=== PATIENT | female | born 1945 | race Caucasian/White ===

== ENCOUNTER → 2016-10-25 | Outpatient (CLI) | payer MEDICARE ==
[~2016-10-25] MED LIST: DOBUTamine DRIP for NUC MED 500 MG in DEXTROSE/WATER 1 250ML.BAG IV ONE
== END | disposition home or self-care (01) ==
LOC: RADNMMAIN 09:45
PROVIDERS: ATTEND Internal Medicine Geriatric Medicine
DX: Z53.9 Procedure and treatment not carried out, unspecified reason (principal)

== ENCOUNTER → 2020-08-09 | Outpatient (CLI) | payer MEDICARE ==
[2020-08-09 10:59] LABS: Basophils # (A) 0.1 k/uL (0-0.2); Basophils % (A) 1 %; Eosinophils # (A) 0.1 k/uL (0-0.7); Eosinophils % (A) 1 %; HCT 40.6 % (34.0-46.0); HGB 13.7 gm/dL (11.4-16.0); Lymphocytes # (A) 0.9 k/uL (1.0-4.8); Lymphocytes % (A) 11 %; MCH 31.1 pg (25.0-35.0); MCHC 33.7 g/dL (31.0-37.0); MCV 92.2 fL (80.0-100.0); Monocytes # (A) 0.6 k/uL (0-1.0); Monocytes % (A) 7 %; Neutrophils # (A) 6.2 k/uL (1.3-7.7); Neutrophils % (A) 77 %; Platelet Count 314 k/uL (150-450); RDW 13.3 % (11.5-15.5); WBC 8.1 k/uL (3.8-10.6)
[2020-08-09 11:09] LABS: African American GFR (CKD) >90 (>60 ml/min/1.73 sqM); Anion Gap 7 mmol/L; Blood Urea Nitrogen 19 mg/dL (7-17); Carbon Dioxide 26 mmol/L (22-30); Chloride 103 mmol/L (98-107); Glucose 130 mg/dL (74-99); Non-African American GFR(CKD) 84 (>60 ml/min/1.73 sqM); Potassium 4.4 mmol/L (3.5-5.1); Sodium 136 mmol/L (137-145)
[2020-08-09 12:12] LABS: Appearance,Urine Clear (Clear); Bilirubin,Urine Negative (Negative); Blood,Urine Negative (Negative); Color,Urine Yellow; Glucose,Urine (UA) Negative (Negative); Hyaline Casts,Urine 1 /lpf (0-2); Ketones,Urine Negative (Negative); Leukocyte Esterase,Urine Small (Negative); Nitrite,Urine Negative (Negative); PH, Urine 6.5 (5.0-8.0); Protein,Urine Negative (Negative); RBC,Urine <1 /hpf (0-5); Specific Gravity,Urine 1.011 (1.001-1.035); Squamous Epithelial Cell,Urine 1 /hpf (0-4); Urobilinogen,Urine <2.0 mg/dL (<2.0); WBC,Urine 2 /hpf (0-5)
== END | disposition home or self-care (01) ==
LOC: LABPAT 10:21
PROVIDERS: ATTEND Urology
DX: Z01.812 Encounter for preprocedural laboratory examination (principal); N81.9 Female genital prolapse, unspecified; N39.3 Stress incontinence (female) (male); N13.30 Unspecified hydronephrosis; N39.0 Urinary tract infection, site not specified
CPT/HCPCS: 36415; 80048; 81001; 85025; 87086

== ENCOUNTER 2020-08-17 06:17 | Day surgery (SDC) | payer MEDICARE ==
[2020-08-15 16:33] VITALS: BMI 25.4
--- NOTE | 2020-08-16 19:00 | P.HPIHPCON ---
History of Present Illness H&P Date: 08/16/20 Chief Complaint: Pelvic organ prolapse This is a 75 yo female with hx of stage IV cystocele/Rectocele and AME. She is symptomatic secondary to her prolapse. Option of pessary, vaginal repair and Robotic sacrocolpopexy were discussed with her in details. Discussed risk and be nefit of each approach. She agreed to proceed with robotic assisted laproscopic sacrocolpopexy, trans-obturator sling. Discussed with her for the sacrocolpopexy and trans-obturator sling we will be using mesh. Discussed risk of mesh erosion through the vagina, bladder and rectum. Discussed potential of needing additional operation in the future. Discussed risk of mesh erosion from the sling through the urethra, the bladder and the vagina. Discussed risk of recurrence prolapse, and stress urinary incontinence. Discussed the risk of urinary retention. She understood all risks and agreed to proceed. Consent for Procedure: I have explained the operation/procedure to the patient, including the risks, benefits, side effects, alternative therapies (including not receiving the proposed treatment or service), the likelihood of the patient achieving his/her goals, and potential recuperation problems for the procedure/sedation/analgesia, as well as any blood products, if indicated. I also explained to the patient the risks, benefits and side effects of the alternatives, as well as the risks related to not receiving the proposed procedure, care, treatment, or services. - Constitutional Constitutional: Denies chills, Denies fever - Cardiovascular Cardiovascular: Denies chest pain, Denies shortness of breath - Respiratory Respiratory: Denies cough, Denies 7 - Gastrointestinal Gastrointestinal: Denies abdominal pain, Denies diarrhea, Denies nausea, Denies vomiting - Genitourinary (Female) Genitourinary: Reports stress incontinence, Denies dysuria, Denies flank pain, Denies hematuria - Musculoskeletal Musculoskeletal: Denies myalgias Past Medical History Past Medical History: Hyperlipidemia, Hypertension, Osteoarthritis (OA) History of Any Multi-Drug Resistant Organisms: None Reported Past Surgical History: Adenoidectomy, Hysterectomy, Joint Replacement, Tonsillectomy Additional Past Surgical History / Comment(s): LT CARO. SX FOR ECTOPIC . COLONOSCOPY Past Anesthesia/Blood Transfusion Reactions: Postoperative Nausea & Vomiting (PONV) Smoking Status: Never smoker - Past Family History Mother Family Medical History: Cancer Medications and Allergies Home Medications Medication Instructions Recorded Confirmed Type Losartan Potassium 50 mg PO DAILY 08/15/20 08/15/20 History Metoprolol Tartrate [Lopressor] 25 mg PO BID 08/15/20 08/15/20 History amLODIPine [Norvasc] 10 mg PO DAILY 08/15/20 08/15/20 History Allergies Allergy/AdvReac Type Severity Reaction Status Date / Time adhesive tape Allergy Rash/Hives Verified 08/15/20 16:26 atorvastatin calcium Allergy Abdominal Verified 08/15/20 16:19 [From Lipitor] Pain Surgical - Exam - General well developed, well nourished, no distress, no pain - Eyes PERRL, normal ocular movement - ENT normal nares, normal mucosa - Respiratory normal expansion, normal respiratory effort - Abdomen Abdomen: soft, non tender - Psychiatric oriented to time, oriented to person, oriented to place Assessment and Plan Assessment: 75-year-old female with history of stage IV cystocele, rectocele, stress urinary incontinence. -Or for robotic sacralcolpopexy, trans-obturator sling
[~2020-08-17 06:17] MED LIST changes: +DEXAMETHASONE SOD PHOSPHATE 4 MG/ML 1 ML VIAL IV ONE; -DOBUTamine DRIP for NUC MED 500 MG in DEXTROSE/WATER 1 250ML.BAG IV ONE; +HYDROmorphone 0.5 MG/0.5 ML SYRINGE IVP PRN; +MIDAZOLAM 2 MG/2 ML VIAL IV PRN; +ONDANSETRON 4 MG/2 ML VIAL IVP ONE
[2020-08-17] MEDS: LACTATED RINGERS 1,000 ML IV SCH (06:58)
[2020-08-17] MEDS ORDERED: ePHEDrine SULFATE/0.9% NACL/PF 50 MG/5 ML SYRINGE IV ONE (07:31)
[2020-08-17] MEDS ORDERED: fentaNYL (PF) 50 MCG/ML 2 ML AMP ONE (07:31)
[2020-08-17] MEDS ORDERED: GLYCOPYRROLATE 0.2 MG/ML 2 ML VIAL ONE (07:31)
[2020-08-17] MEDS ORDERED: NEOSTIGMINE 1 MG/ML 10 ML VIAL ONE (07:31)
[2020-08-17] MEDS ORDERED: LIDOCAINE 1% INJ 10MG/ML (20 ML MDV) ONE (07:31)
[2020-08-17] MEDS ORDERED: PROPOFOL 10 MG/ML 20 ML VIAL IV ONE (07:31)
[2020-08-17] MEDS ORDERED: MIDAZOLAM 2 MG/2 ML VIAL ONE (07:31)
[2020-08-17] MEDS ORDERED: SUCCINYLCHOLINE CHLORIDE 100 MG/5 ML SYR IV ONE (07:31)
[2020-08-17] MEDS ORDERED: PHENYLEPHRINE-0.9% NACL SYG 1,000 MCG/10 ML SYRINGE ONE (07:31)
[2020-08-17] MEDS ORDERED: ROCURONIUM 10 MG/ML (5 ML VIAL) IV ONE (07:31)
[2020-08-17] MEDS ORDERED: BUPIVACAINE (PF) 0.5% 30 ML VIAL SQ ONE (07:36)
[2020-08-17] MEDS ORDERED: LIDOCAINE 1%-EPI 1:100,000 20 ML VIAL SQ ONE (07:36)
[2020-08-17] MEDS ORDERED: GENTAMICIN 80 MG in SODIUM CHLORIDE 0.9% 500 ML 500 ML IRRIGATION ONE (07:36)
[2020-08-17] MEDS ORDERED: traMADol 50 MG TAB PO PRN (07:47)
--- NOTE | 2020-08-17 10:07 | P.OP ---
Date of Procedure: 08/17/20 Preoperative Diagnosis: Stage IV cystocele/rectocele, stress urinary incontinence Postoperative Diagnosis: Same Procedure(s) Performed: lysis of adhesions Implants: none Anesthesia: CAMRYN Surgeon: Roland Aldana Package Sorter #1: Farzad Duran Estimated Blood Loss (ml): 25 Pathology: none sent Condition: stable Disposition: PACU Indications for Procedure: This is a 75 yo female with hx of stage IV cystocele/Rectocele and AME. She is symptomatic secondary to her prolapse. Option of pessary, vaginal repair and Robotic sacrocolpopexy were discussed with her in details. Discussed risk and benefit of each approach. She agreed to proceed with robotic assisted laproscopic sacrocolpopexy, trans-obturator sling. Discussed with her for the sacrocolpopexy and trans-obturator sling we will be using mesh. Discussed risk of mesh erosion through the vagina, bladder and rectum. Discussed potential of needing additional operation in the future. Discussed risk of mesh erosion from the sling through the urethra, the bladder and the vagina. Discussed risk of recurrence prolapse, and stress urinary incontinence. Discussed the risk of urinary retention. She understood all risks and agreed to proceed. Operative Findings: extensive adhesion, the left sigmoid was fixed to the left side wall, sigmoid could not be safely mobilized. Extensively dilated rectum that is tightly adherent to the vagina. extensive small bowel adhesion along the culde sac. Description of Procedure: She was taken to the OR and administered general anesthesia and placed in lithotomy position. She was prepped and draped in sterile fashion. A Lima catheter was placed. Pneumoperitoneum was obtained using a Veress needle, 8mm robotic trocar was placed supraumbillically. 2 additional 8 mm robotic trochars were placed on the left, an additional 8 mm robotic trocar was placed, 12 mm system port was placed in the right quadrant . The robot was docked. Patient had extensive adhesion in the pelvis. Lysis adhesions was performed sharply using monopolar scissors, of note patient had extensive adhesions, and no clear planes could be identified between the adhesions. Additionally her adhesions were very dense. more than 45 minutes was spent performing lysis of adhesions. At this time it was noted that the left sigmoid was fixed to the left side wall, sigmoid could not be safely mobilized to perform the surgery . Additionally Extensively dilated rectum that is tightly adherent to the vagina, and extensive small bowel adhesion along the culde sac. At this time it was felt that the surgery could not be performed safely, the prolapse could not be reduced and the sacral prominetory could not be identified without dissecting the bowel adhesions. I discussed these finding with patient and discussed that the surgery could not be performed safely and he was agreeable with aborting the surgery given the extensive adhesions. The bowel was reexamined at the end of the case and there was no evidence of bowel injury. All count was correct. the abdomen was desufflated and all ports were removed. All the incisions were closed with 4-0 Monocryl subcuticular sutures and the patient was sent to recovery in stable condition with the Lima catheter
[2020-08-17] MEDS: KETOROLAC 15 MG/ML 1 ML VIAL IVP SCH ×2 (10:25→17:29)
[2020-08-17] MEDS: DEXTROSE 5%-0.45% NACL 1,000 ML IV SCH ×2 (10:26→17:34)
[2020-08-17] MEDS: HEPARIN SODIUM,PORCINE/PF 5,000 UNIT/0.5 ML SYRINGE SQ SCH (17:30)
[2020-08-17] MEDS: METOPROLOL TARTRATE 25 MG TAB PO SCH (17:30)
[2020-08-17] MEDS: CEPHALEXIN 500 MG CAP PO SCH (17:30)
[2020-08-18] MEDS: CEPHALEXIN 500 MG CAP PO SCH ×2 (00:23→08:15)
[2020-08-18] MEDS: KETOROLAC 15 MG/ML 1 ML VIAL IVP SCH ×2 (00:23→05:59)
[2020-08-18] MEDS: HEPARIN SODIUM,PORCINE/PF 5,000 UNIT/0.5 ML SYRINGE SQ SCH ×2 (00:23→08:15)
[2020-08-18] MEDS: DEXTROSE 5%-0.45% NACL 1,000 ML IV SCH (00:23)
[2020-08-18] MEDS: LACTATED RINGERS 1,000 ML IV SCH (00:24)
[2020-08-18 02:37] VITALS: RESP 16
[2020-08-18] MEDS: METOPROLOL TARTRATE 25 MG TAB PO SCH (08:15)
[2020-08-18] MEDS ORDERED: amLODIPine 10 MG TAB PO SCH (09:00)
[2020-08-18 15:15] VITALS: BP 161/82; PULSE 62; TEMP 98.2
--- NOTE | 2020-08-18 18:10 | P.DS ---
Providers Attending physician: Roland Aldana MD Primary care physician: [facility] Course: 75-year-old female history of stage for prolapse. She underwent attempted robotic sacralcolpopexy on August 17, surgery could not be performed secondary to significant pelvic adhesions. Please see op note dated August 17 for surgery details. Patient was admitted to the hospital postoperatively, she did well in the postoperative period. She was discharged home on postop day #1, attempt discharge was tolerating a diet, ambulating, pain was well-controlled. ON discharge her incision were CDI, and her abdominal exam was benign Plan - Discharge Summary Discharge Rx Participant: Yes New Discharge Prescriptions: New Ibuprofen 600 mg PO Q8H PRN #30 tab PRN Reason: Pain No Action amLODIPine [Norvasc] 10 mg PO DAILY Metoprolol Tartrate [Lopressor] 25 mg PO BID Losartan Potassium 50 mg PO DAILY Cephalexin [Keflex] 500 mg PO Q8HR Discharge Medication List Losartan Potassium 50 mg PO DAILY 08/15/20 [History] Metoprolol Tartrate [Lopressor] 25 mg PO BID 08/15/20 [History] amLODIPine [Norvasc] 10 mg PO DAILY 08/15/20 [History] Cephalexin [Keflex] 500 mg PO Q8HR 08/17/20 [History] Ibuprofen 600 mg PO Q8H PRN #30 tab 08/18/20 [Rx] Patient Instructions/Handouts: Exploratory Laparotomy (DC) Activity/Diet/Wound Care/Special Instructions: No heavy lifting or straining for 4 weeks You may shower tomorrow but no baths Discharge Disposition: HOME SELF-CARE
== END 2020-08-18 16:34 | disposition home or self-care (01) ==
LOC: OR 06:17 → 4SSUR 09:22 → OR 08-18 16:34
PROVIDERS: ATTEND Urology
DX: N81.10 Cystocele, unspecified (principal); N81.6 Rectocele; N39.3 Stress incontinence (female) (male); K66.0 Peritoneal adhesions (postprocedural) (postinfection); I10 Essential (primary) hypertension; E78.5 Hyperlipidemia, unspecified; M19.90 Unspecified osteoarthritis, unspecified site; Z79.899 Other long term (current) drug therapy; Z88.8 Allergy status to other drugs, medicaments and biological substances; Z98.890 Other specified postprocedural states
CPT/HCPCS: 86900; 86901; 86850; 44180; J2250; J1580; J1100; J2710; J0690; J2405; J2001; J3010; J1885 ×2; J2370; J0330; J2704; J1644 ×2

== ENCOUNTER 2021-10-31 08:51 | Emergency (ER) | payer MEDICARE ==
[2021-10-31 09:01] VITALS: TEMP 97.9
--- NOTE | 2021-10-31 09:28 | ED ---
General Adult HPI - General Chief complaint: Urogenital Stated complaint: urogenital, dizziness Time Seen by Provider: 10/31/21 08:52 Source: patient, RN notes reviewed Mode of arrival: wheelchair Limitations: no limitations - History of Present Illness Initial comments: 76-year-old female with a history of urinary tract infections in the past who initially came in because of urgency frequency and painful urination also complains some dizziness and also later admitted to a cough with some minimal phlegm he was noted to be dyspneic on exertion transferring from a wheelchair to a ER stretcher. She's had chills and night sweats she states no nausea no vomiting she states she had a little bit of blood in her urine this morning and demonstrate frequency and urgency. No chest pain or palpitations no history of any lung issues she states. - Related Data Home Medications Medication Instructions Recorded Confirmed Metoprolol Tartrate [Lopressor] 25 mg PO BID 08/15/20 10/31/21 amLODIPine [Norvasc] 10 mg PO DAILY 08/15/20 10/31/21 Atorvastatin [Lipitor] 20 mg PO DAILY 10/31/21 10/31/21 Losartan Potassium 100 mg PO DAILY 10/31/21 10/31/21 Previous Rx's Medication Instructions Recorded Cephalexin [Keflex] 500 mg PO Q6HR 1 Days #40 cap 10/31/21 Allergies Allergy/AdvReac Type Severity Reaction Status Date / Time adhesive tape Allergy Rash/Hives Verified 10/31/21 10:32 Review of Systems ROS Statement: Those systems with pertinent positive or pertinent negative responses have been documented in the HPI. ROS Other: All systems not noted in ROS Statement are negative. Past Medical History Past Medical History: Hyperlipidemia, Hypertension History of Any Multi-Drug Resistant Organisms: None Reported Past Surgical History: Joint Replacement Additional Past Surgical History / Comment(s): Left hip surgery Past Psychological History: No Psychological Hx Reported Smoking Status: Never smoker Past Alcohol Use History: None Reported Past Drug Use History: None Reported General Exam - General Exam Comments Initial Comments: This is a well-developed well-nourished awake alert oriented 4 female Limitations: no limitations General appearance: alert, anxious Head exam: Present: atraumatic, normocephalic, normal inspection Eye exam: Present: normal appearance, PERRL, EOMI. Absent: scleral icterus, conjunctival injection, periorbital swelling ENT exam: Present: normal exam, mucous membranes moist Neck exam: Present: normal inspection, full ROM, other (Stridor JVD or bruits). Absent: tenderness, meningismus, lymphadenopathy Respiratory exam: Present: normal lung sounds bilaterally. Absent: respiratory distress, wheezes, rales, rhonchi, stridor Cardiovascular Exam: Present: regular rate, normal rhythm, normal heart sounds. Absent: systolic murmur, diastolic murmur, rubs, gallop, clicks GI/Abdominal exam: Present: soft, tenderness (Mild suprapubic tenderness palpation no guarding rebound masses or bruits), normal bowel sounds. Absent: distended, guarding, rebound, rigid Rectal exam: Present: deferred Extremities exam: Present: normal inspection, full ROM, normal capillary refill. Absent: tenderness, pedal edema, joint swelling, calf tenderness Back exam: Present: normal inspection, full ROM. Absent: tenderness Neurological exam: Present: alert, oriented X3, CN II-XII intact Psychiatric exam: Present: normal affect, normal mood Skin exam: Present: warm, dry, intact, normal color. Absent: rash Course Vital Signs 10/31/21 08:57 Temperature 97.9 F Pulse Rate 61 Respiratory 18 Rate Blood Pressure 172/75 O2 Sat by Pulse 100 Oximetry Medical Decision Making - Medical Decision Making I did offer admission as the patient she does not want to be admitted this time she does know she has urinary tract infection she also she has COVID-19. Patient will be discharged home. Return parameters were discussed. She will follow-up with her doctor - Lab Data Result diagrams: 10/31/21 09:56 10/31/21 09:56 Lab Results 10/31/21 10/31/21 10/31/21 Range/Units 09:56 09:56 09:56 WBC 3.0 L (3.8-10.6) k/uL RBC 4.30 (3.80-5.40) m/uL Hgb 13.0 (11.4-16.0) gm/dL Hct 39.8 (34.0-46.0) % MCV 92.7 (80.0-100.0) fL MCH 30.2 (25.0-35.0) pg MCHC 32.5 (31.0-37.0) g/dL RDW 12.8 (11.5-15.5) % Plt Count 221 (150-450) k/uL MPV 8.6 Neutrophils % 61 % Lymphocytes % 19 % Monocytes % 16 % Eosinophils % 0 % Basophils % 1 % Neutrophils # 1.8 (1.3-7.7) k/uL Lymphocytes # 0.6 L (1.0-4.8) k/uL Monocytes # 0.5 (0-1.0) k/uL Eosinophils # 0.0 (0-0.7) k/uL Basophils # 0.0 (0-0.2) k/uL PT 9.9 (9.0-12.0) sec INR 0.9 (<1.2) APTT 30.0 (22.0-30.0) sec D-Dimer 0.91 H (<0.60) mg/L FEU Sodium 134 L (137-145) mmol/L Potassium 4.1 (3.5-5.1) mmol/L Chloride 102 (98-107) mmol/L Carbon Dioxide 21 L (22-30) mmol/L Anion Gap 11 mmol/L BUN 10 (7-17) mg/dL Creatinine 0.60 (0.52-1.04) mg/dL Est GFR (CKD-EPI)AfAm >90 (>60 ml/min/1.73 sqM) Est GFR (CKD-EPI)NonAf 90 (>60 ml/min/1.73 sqM) Glucose 114 H (74-99) mg/dL Lactic Ac Sepsis Rflx Plasma Lactic Acid Jeff (0.7-2.0) mmol/L Calcium 9.4 (8.4-10.2) mg/dL Magnesium 2.0 (1.6-2.3) mg/dL Total Bilirubin 0.5 (0.2-1.3) mg/dL AST 42 H (14-36) U/L ALT 21 (4-34) U/L Alkaline Phosphatase 121 (38-126) U/L Troponin I (0.000-0.034) ng/mL NT-Pro-B Natriuret Pep pg/mL Total Protein 7.2 (6.3-8.2) g/dL Albumin 4.3 (3.5-5.0) g/dL Urine Color Urine Appearance (Clear) Urine pH (5.0-8.0) Ur Specific Murray (1.001-1.035) Urine Protein (Negative) Urine Glucose (UA) (Negative) Urine Ketones (Negative) Urine Blood (Negative) Urine Nitrite (Negative) Urine Bilirubin (Negative) Urine Urobilinogen (<2.0) mg/dL Ur Leukocyte Esterase (Negative) Urine RBC (0-5) /hpf Urine WBC (0-5) /hpf Ur Squamous Epith Cells (0-4) /hpf Coronavirus (PCR) (Not Detectd) Influenza Type A RNA (Not Detectd) Influenza Type B (PCR) (Not Detectd) 10/31/21 10/31/21 10/31/21 Range/Units 09:56 09:56 09:56 WBC (3.8-10.6) k/uL RBC (3.80-5.40) m/uL Hgb (11.4-16.0) gm/dL Hct (34.0-46.0) % MCV (80.0-100.0) fL MCH (25.0-35.0) pg MCHC (31.0-37.0) g/dL RDW (11.5-15.5) % Plt Count (150-450) k/uL MPV Neutrophils % % Lymphocytes % % Monocytes % % Eosinophils % % Basophils % % Neutrophils # (1.3-7.7) k/uL Lymphocytes # (1.0-4.8) k/uL Monocytes # (0-1.0) k/uL Eosinophils # (0-0.7) k/uL Basophils # (0-0.2) k/uL PT (9.0-12.0) sec INR (<1.2) APTT (22.0-30.0) sec D-Dimer (<0.60) mg/L FEU Sodium (137-145) mmol/L Potassium (3.5-5.1) mmol/L Chloride (98-107) mmol/L Carbon Dioxide (22-30) mmol/L Anion Gap mmol/L BUN (7-17) mg/dL Creatinine (0.52-1.04) mg/dL Est GFR (CKD-EPI)AfAm (>60 ml/min/1.73 sqM) Est GFR (CKD-EPI)NonAf (>60 ml/min/1.73 sqM) Glucose (74-99) mg/dL Lactic Ac Sepsis Rflx Plasma Lactic Acid Jeff 2.1 H* (0.7-2.0) mmol/L Calcium (8.4-10.2) mg/dL Magnesium (1.6-2.3) mg/dL Total Bilirubin (0.2-1.3) mg/dL AST (14-36) U/L ALT (4-34) U/L Alkaline Phosphatase (38-126) U/L Troponin I <0.012 (0.000-0.034) ng/mL NT-Pro-B Natriuret Pep 289 pg/mL Total Protein (6.3-8.2) g/dL Albumin (3.5-5.0) g/dL Urine Color Urine Appearance (Clear) Urine pH (5.0-8.0) Ur Specific Murray (1.001-1.035) Urine Protein (Negative) Urine Glucose (UA) (Negative) Urine Ketones (Negative) Urine Blood (Negative) Urine Nitrite (Negative) Urine Bilirubin (Negative) Urine Urobilinogen (<2.0) mg/dL Ur Leukocyte Esterase (Negative) Urine RBC (0-5) /hpf Urine WBC (0-5) /hpf Ur Squamous Epith Cells (0-4) /hpf Coronavirus (PCR) (Not Detectd) Influenza Type A RNA (Not Detectd) Influenza Type B (PCR) (Not Detectd) 10/31/21 10/31/21 10/31/21 Range/Units 09:56 09:56 10:45 WBC (3.8-10.6) k/uL RBC (3.80-5.40) m/uL Hgb (11.4-16.0) gm/dL Hct (34.0-46.0) % MCV (80.0-100.0) fL MCH (25.0-35.0) pg MCHC (31.0-37.0) g/dL RDW (11.5-15.5) % Plt Count (150-450) k/uL MPV Neutrophils % % Lymphocytes % % Monocytes % % Eosinophils % % Basophils % % Neutrophils # (1.3-7.7) k/uL Lymphocytes # (1.0-4.8) k/uL Monocytes # (0-1.0) k/uL Eosinophils # (0-0.7) k/uL Basophils # (0-0.2) k/uL PT (9.0-12.0) sec INR (<1.2) APTT (22.0-30.0) sec D-Dimer (<0.60) mg/L FEU Sodium (137-145) mmol/L Potassium (3.5-5.1) mmol/L Chloride (98-107) mmol/L Carbon Dioxide (22-30) mmol/L Anion Gap mmol/L BUN (7-17) mg/dL Creatinine (0.52-1.04) mg/dL Est GFR (CKD-EPI)AfAm (>60 ml/min/1.73 sqM) Est GFR (CKD-EPI)NonAf (>60 ml/min/1.73 sqM) Glucose (74-99) mg/dL Lactic Ac Sepsis Rflx Y Plasma Lactic Acid Jeff (0.7-2.0) mmol/L Calcium (8.4-10.2) mg/dL Magnesium (1.6-2.3) mg/dL Total Bilirubin (0.2-1.3) mg/dL AST (14-36) U/L ALT (4-34) U/L Alkaline Phosphatase (38-126) U/L Troponin I (0.000-0.034) ng/mL NT-Pro-B Natriuret Pep pg/mL Total Protein (6.3-8.2) g/dL Albumin (3.5-5.0) g/dL Urine Color Urine Appearance (Clear) Urine pH (5.0-8.0) Ur Specific Murray (1.001-1.035) Urine Protein (Negative) Urine Glucose (UA) (Negative) Urine Ketones (Negative) Urine Blood (Negative) Urine Nitrite (Negative) Urine Bilirubin (Negative) Urine Urobilinogen (<2.0) mg/dL Ur Leukocyte Esterase (Negative) Urine RBC (0-5) /hpf Urine WBC (0-5) /hpf Ur Squamous Epith Cells (0-4) /hpf Coronavirus (PCR) Detected A (Not Detectd) Influenza Type A RNA Not Detected (Not Detectd) Influenza Type B (PCR) Not Detected (Not Detectd) 10/31/21 Range/Units 11:07 WBC (3.8-10.6) k/uL RBC (3.80-5.40) m/uL Hgb (11.4-16.0) gm/dL Hct (34.0-46.0) % MCV (80.0-100.0) fL MCH (25.0-35.0) pg MCHC (31.0-37.0) g/dL RDW (11.5-15.5) % Plt Count (150-450) k/uL MPV Neutrophils % % Lymphocytes % % Monocytes % % Eosinophils % % Basophils % % Neutrophils # (1.3-7.7) k/uL Lymphocytes # (1.0-4.8) k/uL Monocytes # (0-1.0) k/uL Eosinophils # (0-0.7) k/uL Basophils # (0-0.2) k/uL PT (9.0-12.0) sec INR (<1.2) APTT (22.0-30.0) sec D-Dimer (<0.60) mg/L FEU Sodium (137-145) mmol/L Potassium (3.5-5.1) mmol/L Chloride (98-107) mmol/L Carbon Dioxide (22-30) mmol/L Anion Gap mmol/L BUN (7-17) mg/dL Creatinine (0.52-1.04) mg/dL Est GFR (CKD-EPI)AfAm (>60 ml/min/1.73 sqM) Est GFR (CKD-EPI)NonAf (>60 ml/min/1.73 sqM) Glucose (74-99) mg/dL Lactic Ac Sepsis Rflx Plasma Lactic Acid Jeff (0.7-2.0) mmol/L Calcium (8.4-10.2) mg/dL Magnesium (1.6-2.3) mg/dL Total Bilirubin (0.2-1.3) mg/dL AST (14-36) U/L ALT (4-34) U/L Alkaline Phosphatase (38-126) U/L Troponin I (0.000-0.034) ng/mL NT-Pro-B Natriuret Pep pg/mL Total Protein (6.3-8.2) g/dL Albumin (3.5-5.0) g/dL Urine Color Red Urine Appearance Turbid H (Clear) Urine pH 8.0 (5.0-8.0) Ur Specific Murray 1.017 (1.001-1.035) Urine Protein 2+ H (Negative) Urine Glucose (UA) Negative (Negative) Urine Ketones Negative (Negative) Urine Blood Large H (Negative) Urine Nitrite Negative (Negative) Urine Bilirubin Negative (Negative) Urine Urobilinogen <2.0 (<2.0) mg/dL Ur Leukocyte Esterase Large H (Negative) Urine RBC >182 H (0-5) /hpf Urine WBC 64 H (0-5) /hpf Ur Squamous Epith Cells 3 (0-4) /hpf Coronavirus (PCR) (Not Detectd) Influenza Type A RNA (Not Detectd) Influenza Type B (PCR) (Not Detectd) - EKG Data -: EKG Interpreted by Me EKG shows normal: sinus rhythm EKG Comments: Sinus rhythm a 62 MO interval 142 QRS duration 81 QT/QTC 413/419 some artifact present - Radiology Data Radiology results: report reviewed ((Reviewed no evidence of PE chronic hydronephrosis question renal lesion), image reviewed Disposition Clinical Impression: Urinary tract infection, Hydronephrosis, Exertional dyspnea, COVID-19, Dehydration Disposition: HOME SELF-CARE Condition: Stable Instructions (If sedation given, give patient instructions): Coronavirus Disease 2019 (COVID-19), How to Recover from COVID-19 at Home (ED), Safely Care for Someone Who Has COVID-19 (ED), Social Distancing Guidelines for COVID-19 (ED), Dehydration (ED), Dyspnea (ED) Additional Instructions: Paxlovid as directed Prescriptions: Cephalexin [Keflex] 500 mg PO Q6HR 1 Days #40 cap Is patient prescribed a controlled substance at d/c from ED?: No Referrals: Atif Mike MD [Primary Care Provider] - 1-2 days Decision Date: 10/31/21 Decision Time: 14:00
--- NOTE | 2021-10-31 10:15 | XR ---
EXAMINATION TYPE: XR chest 2V DATE OF EXAM: 10/31/2021 COMPARISON: 08/21/2014 HISTORY: 76 year-old female shortness of breath, difficulty breathing TECHNIQUE: AP and lateral views FINDINGS: Heart normal size. Atherosclerotic arch calcifications. Some patchy retrocardiac opacity noted. Pulmo nary vasculature within normal limits. Increased retrosternal clear space could reflect hyperinflatio n from COPD. IMPRESSION: Retrocardiac density suspected to reflect an enlarging moderate-sized hiatal hernia. Otherwise, no de finite acute process.
--- NOTE | 2021-10-31 10:17 | XR ---
EXAMINATION TYPE: XR KUB DATE OF EXAM: 10/31/2021 10:03 AM CLINICAL HISTORY: Flank pain. TECHNIQUE: Single Upright KUB image of the abdomen is obtained. COMPARISON: None. FINDINGS: Scattered gas is seen in non-distended small bowel loops. Gas and fecal material is seen in non-distended colon and rectum. Mild to moderate fecal prominence in the right and central pelvis. P elvic phleboliths inferior to pubic symphysis noted. There is marked scoliosis in the thoracolumbar s pine. Chronic deformity and dislocation right hip is present. Metallic prosthesis left hip is partial ly imaged. No free air. Some overlying vascular calcification is seen. IMPRESSION: Overall nonobstructive bowel gas pattern. Correlate for mild to moderate colonic fecal stasis.
[2021-10-31 10:22] LABS: Basophils % (A) 1 %; Eosinophils % (A) 0 %; HCT 39.8 % (34.0-46.0); Lymphocytes # (A) 0.6 k/uL (1.0-4.8); Lymphocytes % (A) 19 %; MCH 30.2 pg (25.0-35.0); MCHC 32.5 g/dL (31.0-37.0); MCV 92.7 fL (80.0-100.0); Mean Platelet Volume 8.6; Monocytes # (A) 0.5 k/uL (0-1.0); Monocytes % (A) 16 %; Neutrophils # (A) 1.8 k/uL (1.3-7.7); Neutrophils % (A) 61 %; Platelet Count 221 k/uL (150-450); RDW 12.8 % (11.5-15.5)
[2021-10-31 10:39] LABS: ALT 21 U/L (4-34); AST 42 U/L (14-36); African American GFR (CKD) >90 (>60 ml/min/1.73 sqM); Albumin 4.3 g/dL (3.5-5.0); Alkaline Phosphatase 121 U/L (38-126); Anion Gap 11 mmol/L; Blood Urea Nitrogen 10 mg/dL (7-17); Calcium 9.4 mg/dL (8.4-10.2); Carbon Dioxide 21 mmol/L (22-30); Chloride 102 mmol/L (98-107); Glucose 114 mg/dL (74-99); Non-African American GFR(CKD) 90 (>60 ml/min/1.73 sqM); Potassium 4.1 mmol/L (3.5-5.1); Sodium 134 mmol/L (137-145); Total Bilirubin 0.5 mg/dL (0.2-1.3); Total Protein 7.2 g/dL (6.3-8.2)
[2021-10-31 10:42] LABS: INR 0.9 (<1.2); Prothrombin Time 9.9 sec (9.0-12.0)
[2021-10-31 11:29] LABS: Appearance,Urine Turbid (Clear); Bilirubin,Urine Negative (Negative); Blood,Urine Large (Negative); Color,Urine Red; Glucose,Urine (UA) Negative (Negative); Ketones,Urine Negative (Negative); Leukocyte Esterase,Urine Large (Negative); Nitrite,Urine Negative (Negative); Protein,Urine 2+ (Negative); RBC,Urine >182 /hpf (0-5); Specific Gravity,Urine 1.017 (1.001-1.035); Squamous Epithelial Cell,Urine 3 /hpf (0-4); Urobilinogen,Urine <2.0 mg/dL (<2.0); WBC,Urine 64 /hpf (0-5)
--- NOTE | 2021-10-31 12:07 | CT ---
EXAMINATION TYPE: CT angio chest CT DLP: 231.8 mGycm, Automated exposure control for dose reduction was used. DATE OF EXAM: 10/31/2021 11:50 AM COMPARISON: CTA chest 08/21/2014, chest radiograph 10/31/2021. CLINICAL INDICATION:Female, 76 years old with history of PE suspected; SOB TECHNIQUE/CONTRAST: CTA scan of the thorax is performed with IV Contrast, patient injected with 80cc mL of Isovue 370, pu lmonary embolism protocol. MIP images are created and reviewed. FINDINGS: Pulmonary Artery: There is no evidence for a filling defect within the pulmonary vasculature to sugge st acute pulmonary embolism. The pulmonary artery is of normal size. Lungs/Pleura: No pneumothorax or pleural effusion. Bilateral lower lobe subtle scattered groundglass opacities. Calcified granuloma redemonstrated in the right apex. No new or enlarging pulmonary nodule s. Airway: Large airways are patent. Heart: Heart is prominent for size. No pericardial effusion. Coronary artery calcifications. Vasculature: No evidence of aortic aneurysm. Atherosclerotic calcification of the aorta and its branc hes. Mediastinum: No gross evidence of adenopathy. Musculoskeletal: No acute osseous abnormalities. Scoliosis. Arthropathy of both shoulders. Stable dif fuse heterogenous appearance of the vertebral bodies. Multilevel degenerative changes of the visualiz ed spine with multilevel fusion. Soft Tissues: Unremarkable. Lower neck: No significant findings. Upper Abdomen: Partially visualized moderate to severe bilateral hydronephrosis. 2.1 cm hyperattenuat ing focus within the left renal pelvis (series 401, image 140). Moderate-sized lateral hernia. IMPRESSION: 1. No evidence of pulmonary embolism. 2. Bilateral lower lobe scattered subtle groundglass opacities. This may represent atelectasis versus an infectious/inflammatory process in the appropriate clinical setting. 3. Partially visualized moderate to severe bilateral hydronephrosis redemonstrated. 4.Nonspecific hyperattenuating focus within the left renal pelvis which may represent blood products versus neoplasm. Consider further evaluation with ultrasound.
[2021-10-31] MEDS ORDERED: cefTRIAXone IN SWFI 1,000 MG/10 ML SYRINGE IVP STA (13:39)
[2021-10-31 15:45] VITALS: BP 113/68; PULSE 68; RESP 16
== END 2021-10-31 15:45 | disposition home or self-care (01) ==
LOC: EC 08:51
DX: U07.1 COVID-19 (principal); N39.0 Urinary tract infection, site not specified; N13.30 Unspecified hydronephrosis; E78.5 Hyperlipidemia, unspecified; I10 Essential (primary) hypertension; Z91.048 Other nonmedicinal substance allergy status
CPT/HCPCS: 36415; 93005; 85379; 83880; 80053; 83605; 83735; 84484; 85025; 85610; 85730; 81001; 87040; 87086; 87502; 87635; 71046; 74018; 71275; 99284; 96374; J0696; Q9967

== ENCOUNTER 2022-11-30 10:11 | Inpatient (IN) | payer MEDICARE ==
[2022-11-30] MEDS ORDERED: SODIUM CHLORIDE 0.9% 500 ML 500 ML IV STA (11:12)
[2022-11-30] MEDS ORDERED: fentaNYL (PF) 50 MCG/ML 2 ML AMP IVP STA (11:12)
--- NOTE | 2022-11-30 11:15 | ED ---
General Adult HPI - General Source: patient, RN notes reviewed, old records reviewed Mode of arrival: ambulatory Limitations: no limitations - History of Present Illness -: days(s) (1) Location: genitals (rectal) Severity scale (1-10): 10 Quality: constant Consistency: constant Improves with: none Associated Symptoms: other (rectal bleeding) Treatments Prior to Arrival: none <Manas Welch - Last Filed: 11/30/22 16:17> <Lizzeth Jeronimo - Last Filed: 12/01/22 15:09> - General Chief complaint: GI Bleed Stated complaint: GI bleed Time Seen by Provider: 11/30/22 10:33 - History of Present Illness Initial comments: Patient presents to the emergency room with complaints of rectal bleeding since yesterday with hemorrhoids. States that she has not been able to pass gas. History of hypertension and hyperlipidemia. (Manas Welch) - Related Data Home Medications Medication Instructions Recorded Confirmed Metoprolol Tartrate [Lopressor] 25 mg PO BID 08/15/20 11/30/22 amLODIPine [Norvasc] 5 mg PO HS 08/15/20 11/30/22 Losartan Potassium 100 mg PO DAILY 10/31/21 11/30/22 Ascorbic Acid [Vitamin C] 500 mg PO DAILY 11/30/22 11/30/22 Cholecalciferol [Vitamin D3 (25 25 mcg PO DAILY 11/30/22 11/30/22 Mcg = 1000 Iu)] Garlic 1,000 mg PO DAILY 11/30/22 11/30/22 Glucosamine/Chondr Mack A Sod [Osteo 1 tab PO DAILY 11/30/22 11/30/22 Bi-Flex Caplet] Moxifloxacin HCl [Moxifloxacin 1 drop BOTH EYES QID 11/30/22 11/30/22 0.5%] Pravastatin Sodium [Pravachol] 40 mg PO DAILY 11/30/22 11/30/22 Vitamin A 2,400 mcg PO DAILY 11/30/22 11/30/22 Vitamin B Complex 1 cap PO DAILY 11/30/22 11/30/22 Vitamin E (Dl,Tocopheryl Acet) 400 unit PO DAILY 11/30/22 11/30/22 [Vitamin E (400 Iu = 180 mg)] prednisoLONE ACETATE 1% OPHTH 1 drops BOTH EYES QID 11/30/22 11/30/22 [Pred Forte 1%] Allergies Allergy/AdvReac Type Severity Reaction Status Date / Time adhesive tape Allergy Rash/Hives Verified 11/30/22 12:43 latex Allergy Rash/Hives Verified 11/30/22 14:01 Review of Systems ROS Other: All systems not noted in ROS Statement are negative. <Manas Welch - Last Filed: 11/30/22 16:17> ROS Other: All systems not noted in ROS Statement are negative. <Lizzeth Jeronimo - Last Filed: 12/01/22 15:09> ROS Statement: Those systems with pertinent positive or pertinent negative responses have been documented in the HPI. 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 History of Any Multi-Drug Resistant Organisms: None Reported Past Surgical History: Joint Replacement Additional Past Surgical History / Comment(s): Left hip surgery Past Anesthesia/Blood Transfusion Reactions: No Reported Reaction Past Psychological History: No Psychological Hx Reported Smoking Status: Never smoker Past Alcohol Use History: None Reported Past Drug Use History: None Reported - Past Family History Mother Family Medical History: Cancer Sister(s) Family Medical History: Cancer <Manas Welch - Last Filed: 11/30/22 16:17> General Exam Limitations: no limitations General appearance: alert Head exam: Present: atraumatic Eye exam: Present: other (cataract surgery this week) Neck exam: Present: full ROM. Absent: tenderness, meningismus Respiratory exam: Absent: respiratory distress, accessory muscle use Cardiovascular Exam: Present: regular rate GI/Abdominal exam: Present: soft. Absent: distended, tenderness Rectal exam: Present: other (rectal prolapse, no active bleeding) External exam: Present: other (bladder prolapse, reducible however promptly recurs) Extremities exam: Present: normal capillary refill. Absent: pedal edema Back exam: Absent: tenderness, CVA tenderness (R), CVA tenderness (L), paraspinal tenderness, vertebral tenderness, rash noted Neurological exam: Present: alert, oriented X3 Psychiatric exam: Present: normal affect, normal mood Skin exam: Present: warm, normal color. Absent: cyanosis, diaphoretic, petechiae, pallor <Manas Welch - Last Filed: 11/30/22 16:17> Course - Reevaluation(s) Time: 12:02 Time: 12:06 <Manas Welch - Last Filed: 11/30/22 16:17> Vital Signs 11/30/22 11/30/22 10:13 13:00 Temperature 98.0 F Pulse Rate 68 78 Respiratory 18 18 Rate Blood Pressure 202/92 194/78 O2 Sat by Pulse 96 95 Oximetry - Reevaluation(s) Reevaluation #1: 11/30/22 12:02 Attempted manual reduction of prolapsed bladder and prolapsed rectum. Bladder is able to be reduced however unable to reduce rectal prolapse. Case discussed with Dr. Jeronimo, Surgery contacted. (Manas Welch) Reevaluation #2: 11/30/22 12:06 Dr Kerr notified coming down to see pt. (Manas Welch) Medical Decision Making - Lab Data Result diagrams: 11/30/22 11:21 11/30/22 11:21 <Manas Welch - Last Filed: 11/30/22 16:17> - Lab Data Result diagrams: 12/01/22 05:43 12/01/22 05:43 <Lizzeth Jeronimo - Last Filed: 12/01/22 15:09> - Medical Decision Making Was pt. sent in by a medical professional or institution (, PA, STEREOPTICIAN, urgent care, hospital, or prison...) When possible be specific @ -[No] Did you speak to anyone other than the patient for history (EMS, parent, family, police, friend...)? What history was obtained from this source @ -[No] Did you review nursing and triage notes (agree or disagree)? Why? @ -[I reviewed and agree with nursing and triage notes] Were old charts reviewed (outside hosp., previous admission, EMS record, old EKG, old radiological studies, urgent care reports/EKG's, prison records)? Report findings @ -[No old charts were reviewed] Differential Diagnosis (chest pain, altered mental status, abdominal pain women, abdominal pain men, vaginal bleeding, weakness, fever, dyspnea, syncope, headache, dizziness, GI bleed, back pain, seizure, CVA, palpatations, mental health, musculoskeletal)? @ -Rectal prolapse, bladder prolapse, hemorrhoids, strangulated bowel EKG interpreted by me (3pts min.). @ -n/a X-rays interpreted by me (1pt min.). @ -[None done] CT interpreted by me (1pt min.). @ -[None done] U/S interpreted by me (1pt. min.). @ -[None done] What testing was considered but not performed or refused? (CT, X-rays, U/S, labs)? Why? @ -[None] What meds were considered but not given or refused? Why? @ -[None] Did you discuss the management of the patient with other professionals (professionals i.e. DrAdriane, PA, STEREOPTICIAN, lab, RT, psych nurse, social work job titles, mix technician, teacher, security flex utility officer, case management coordinator)? Give summary @ -Dr Kerr surgery at bedside, to go to OR Was smoking cessation discussed for >3mins.? @ -[No] Was critical care preformed (if so, how long)? @ -[No] Were there social determinants of health that impacted care today? How? (Homelessness, low income, unemployed, alcoholism, drug addiction, transportation, low edu. Level, literacy, decrease access to med. care, fdc, rehab)? @ -[No] Was there de-escalation of care discussed even if they declined (Discuss DNR or withdrawal of care, Hospice)? DNR status @ -[No] What co-morbidities impacted this encounter? (DM, HTN, Smoking, COPD, CAD, Cancer, CVA, ARF, Chemo, Hep., AIDS, mental health diagnosis, sleep apnea, morbid obesity)? @ -Hypertension, hyperlipidemia, bladder prolapse, rectal prolapse, diverticulitis Was patient admitted / discharged? Hospital course, mention meds given and route, prescriptions, significant lab abnormalities, going to OR and other pertinent info. @ -Admitted Patient presents to the emergency room with complaints of rectal bleeding since yesterday with hemorrhoids. States that she has not been able to pass gas. History of hypertension and hyperlipidemia. Also admits to history of bladder prolapse over [address] Aldana stated she is not a candidate for surgery due to history of diverticulitis. On further questioning patient states that her rectum has been prolapsed since yesterday morning, she does have a history of a smaller rectal prolapses for greater than 8 years. Bladder is able to be reduced however promptly recurs. Multiple attempts at manual reduction including the use of granulated sugar and unsuccessful. Dr. Kerr down to see patient states will take to surgery for colostomy, prolapse is not reducible. Patient and are agreeable to surgery. Patient's pain is controlled. Labs show slight leukocytosis with a left shift. Lactic acid is negative. Antibiotics were started and blood cultures were sent. Case discussed with Dr. Jeronimo. Undiagnosed new problem with uncertain prognosis? @ -[No] Drug Therapy requiring intensive monitoring for toxicity (Heparin, Nitro, Insulin, Cardizem)? @ -[No] Were any procedures done? @ -[No] Diagnosis/symptom? @ -Rectal prolapse, bladder prolapse Acute, or Chronic, or Acute on Chronic? @ -Acute Uncomplicated (without systemic symptoms) or Complicated (systemic symptoms)? @ -Complicated Side effects of treatment? @ -[No] Exacerbation, Progression, or Severe Exacerbation? @ -[No] Poses a threat to life or bodily function? How? (Chest pain, USA, DC, pneumonia, PE, COPD, DKA, ARF, appy, cholecystitis, CVA, Diverticulitis, Homicidal, Suicidal, threat to staff... and all critical care pts) @ -Rectal prolapse could result in rupture peritonitis sepsis and (Manas Welch) - Lab Data Lab Results 11/30/22 11/30/22 11/30/22 Range/Units 11:21 11:21 11:21 WBC 14.8 H (3.8-10.6) k/uL RBC 4.30 (3.80-5.40) m/uL Hgb 13.1 (11.4-16.0) gm/dL Hct 39.4 (34.0-46.0) % MCV 91.5 (80.0-100.0) fL MCH 30.4 (25.0-35.0) pg MCHC 33.2 (31.0-37.0) g/dL RDW 13.5 (11.5-15.5) % Plt Count 285 (150-450) k/uL MPV 8.8 Neutrophils % 91 % Lymphocytes % 4 % Monocytes % 4 % Eosinophils % 1 % Basophils % 0 % Neutrophils # 13.5 H (1.3-7.7) k/uL Lymphocytes # 0.6 L (1.0-4.8) k/uL Monocytes # 0.5 (0-1.0) k/uL Eosinophils # 0.1 (0-0.7) k/uL Basophils # 0.0 (0-0.2) k/uL PT (9.0-12.0) sec INR (<1.2) APTT (22.0-30.0) sec Sodium 130 L (137-145) mmol/L Potassium 4.5 (3.5-5.1) mmol/L Chloride 102 (98-107) mmol/L Carbon Dioxide 22 (22-30) mmol/L Anion Gap 6 mmol/L BUN 19 H (7-17) mg/dL Creatinine 0.57 (0.52-1.04) mg/dL Est GFR (CKD-EPI)AfAm >90 (>60 ml/min/1.73 sqM) Est GFR (CKD-EPI)NonAf >90 (>60 ml/min/1.73 sqM) Glucose 131 H (74-99) mg/dL Plasma Lactic Acid Jeff 1.6 (0.7-2.0) mmol/L Calcium 9.3 (8.4-10.2) mg/dL Magnesium 2.0 (1.6-2.3) mg/dL Total Bilirubin 0.8 (0.2-1.3) mg/dL AST 28 (14-36) U/L ALT 17 (4-34) U/L Alkaline Phosphatase 87 (38-126) U/L Total Protein 6.3 (6.3-8.2) g/dL Albumin 3.7 (3.5-5.0) g/dL 11/30/22 Range/Units 12:24 WBC (3.8-10.6) k/uL RBC (3.80-5.40) m/uL Hgb (11.4-16.0) gm/dL Hct (34.0-46.0) % MCV (80.0-100.0) fL MCH (25.0-35.0) pg MCHC (31.0-37.0) g/dL RDW (11.5-15.5) % Plt Count (150-450) k/uL MPV Neutrophils % % Lymphocytes % % Monocytes % % Eosinophils % % Basophils % % Neutrophils # (1.3-7.7) k/uL Lymphocytes # (1.0-4.8) k/uL Monocytes # (0-1.0) k/uL Eosinophils # (0-0.7) k/uL Basophils # (0-0.2) k/uL PT 10.2 (9.0-12.0) sec INR 1.0 (<1.2) APTT 29.1 (22.0-30.0) sec Sodium (137-145) mmol/L Potassium (3.5-5.1) mmol/L Chloride (98-107) mmol/L Carbon Dioxide (22-30) mmol/L Anion Gap mmol/L BUN (7-17) mg/dL Creatinine (0.52-1.04) mg/dL Est GFR (CKD-EPI)AfAm (>60 ml/min/1.73 sqM) Est GFR (CKD-EPI)NonAf (>60 ml/min/1.73 sqM) Glucose (74-99) mg/dL Plasma Lactic Acid Jeff (0.7-2.0) mmol/L Calcium (8.4-10.2) mg/dL Magnesium (1.6-2.3) mg/dL Total Bilirubin (0.2-1.3) mg/dL AST (14-36) U/L ALT (4-34) U/L Alkaline Phosphatase (38-126) U/L Total Protein (6.3-8.2) g/dL Albumin (3.5-5.0) g/dL Disposition Decision Date: 11/30/22 Decision Time: 12:18 <Manas Welch - Last Filed: 11/30/22 16:17> <Lizzeth Jeronimo - Last Filed: 12/01/22 15:09> Clinical Impression: Rectal prolapse, Bladder prolapse, Strangulation of colon Disposition: ADMITTED IP TO THIS HOSP
[2022-11-30 11:55] LABS: Basophils % (A) 0 %; Eosinophils # (A) 0.1 k/uL (0-0.7); Eosinophils % (A) 1 %; HCT 39.4 % (34.0-46.0); HGB 13.1 gm/dL (11.4-16.0); Lymphocytes # (A) 0.6 k/uL (1.0-4.8); Lymphocytes % (A) 4 %; MCH 30.4 pg (25.0-35.0); MCHC 33.2 g/dL (31.0-37.0); MCV 91.5 fL (80.0-100.0); Mean Platelet Volume 8.8; Monocytes # (A) 0.5 k/uL (0-1.0); Monocytes % (A) 4 %; Neutrophils # (A) 13.5 k/uL (1.3-7.7); Neutrophils % (A) 91 %; Platelet Count 285 k/uL (150-450); RDW 13.5 % (11.5-15.5); WBC 14.8 k/uL (3.8-10.6)
[2022-11-30 12:04] LABS: ALT 17 U/L (4-34); AST 28 U/L (14-36); African American GFR (CKD) >90 (>60 ml/min/1.73 sqM); Albumin 3.7 g/dL (3.5-5.0); Alkaline Phosphatase 87 U/L (38-126); Anion Gap 6 mmol/L; Blood Urea Nitrogen 19 mg/dL (7-17); Calcium 9.3 mg/dL (8.4-10.2); Carbon Dioxide 22 mmol/L (22-30); Chloride 102 mmol/L (98-107); Glucose 131 mg/dL (74-99); Non-African American GFR(CKD) >90 (>60 ml/min/1.73 sqM); Potassium 4.5 mmol/L (3.5-5.1); Sodium 130 mmol/L (137-145); Total Bilirubin 0.8 mg/dL (0.2-1.3); Total Protein 6.3 g/dL (6.3-8.2)
[2022-11-30] MEDS ORDERED: cefTRIAXone IN SWFI 1,000 MG/10 ML SYRINGE IVP STA (12:12)
[2022-11-30] MEDS ORDERED: METOPROLOL TARTRATE 5 MG/5 ML VIAL IVP STA (12:15)
--- NOTE | 2022-11-30 12:27 | P.GSHP ---
History of Present Illness H&P Date: 11/30/22 Chief Complaint: Rectal prolapse This is a 77-year-old female with a history of rectal and bladder prolapse. Patient states she has history constipation. She states the last 9 years she's had intermittent rectal prolapse. Patient had recent cataract surgery. She states this week she's had extreme constipation. Patient states she was pushing to go the bathroom. She then developed a large rectal prolapse. Patient has had prolapse rectum for last 2 days. There is a prosthesis 6 inches of prolapsed rectum. The rectum is ischemic and an adenomatous. Several times made in the emergency room to reduce the rectal prolapse was impossible due to the edema of the bowel. Patient has a very friable rectum which is purplish in color. The bowel was very swollen and appears to be ischemic. 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 History of Any Multi-Drug Resistant Organisms: None Reported Past Surgical History: Joint Replacement Additional Past Surgical History / Comment(s): Left hip surgery Past Anesthesia/Blood Transfusion Reactions: No Reported Reaction Past Psychological History: No Psychological Hx Reported Smoking Status: Never smoker Past Alcohol Use History: None Reported Past Drug Use History: None Reported - Past Family History Mother Family Medical History: Cancer Sister(s) Family Medical History: Cancer Medications and Allergies Home Medications Medication Instructions Recorded Confirmed Type Metoprolol Tartrate [Lopressor] 25 mg PO BID 08/15/20 11/03/21 History amLODIPine [Norvasc] 10 mg PO DAILY 08/15/20 11/03/21 History Atorvastatin [Lipitor] 20 mg PO DAILY 10/31/21 11/03/21 History Losartan Potassium 100 mg PO DAILY 10/31/21 11/03/21 History Ascorbic Acid [Vitamin C] 1,000 mg PO DAILY #60 tab 11/08/21 Rx Zinc Sulfate [Orazinc] 220 mg PO DAILY #30 cap 11/08/21 Rx cefUROXime axetiL [Ceftin] 500 mg PO BID 7 Days #14 tab 11/08/21 Rx Allergies Allergy/AdvReac Type Severity Reaction Status Date / Time adhesive tape Allergy Rash/Hives Verified 11/30/22 10:15 Surgical - Exam Vital Signs Temp Pulse Resp BP Pulse Ox 98.0 F 68 18 202/92 96 11/30/22 10:13 11/30/22 10:13 11/30/22 10:13 11/30/22 10:13 11/30/22 10:13 - General well developed, no distress - Eyes PERRL - ENT normal pinna - Neck no masses - Respiratory normal expansion - Cardiovascular Rhythm: regular - Abdomen Abdomen: soft, non tender Results - Labs 11/30/22 11:21 11/30/22 11:21 Abnormal Lab Results - Last 24 Hours (Table) 11/30/22 11/30/22 Range/Units 11:21 11:21 WBC 14.8 H (3.8-10.6) k/uL Neutrophils # 13.5 H (1.3-7.7) k/uL Lymphocytes # 0.6 L (1.0-4.8) k/uL Sodium 130 L (137-145) mmol/L BUN 19 H (7-17) mg/dL Glucose 131 H (74-99) mg/dL Diabetes panel 11/30/22 Range/Units 11:21 Sodium 130 L (137-145) mmol/L Potassium 4.5 (3.5-5.1) mmol/L Chloride 102 (98-107) mmol/L Carbon Dioxide 22 (22-30) mmol/L BUN 19 H (7-17) mg/dL Creatinine 0.57 (0.52-1.04) mg/dL Glucose 131 H (74-99) mg/dL Calcium 9.3 (8.4-10.2) mg/dL AST 28 (14-36) U/L ALT 17 (4-34) U/L Alkaline Phosphatase 87 (38-126) U/L Total Protein 6.3 (6.3-8.2) g/dL Albumin 3.7 (3.5-5.0) g/dL Calcium panel 11/30/22 Range/Units 11:21 Calcium 9.3 (8.4-10.2) mg/dL Albumin 3.7 (3.5-5.0) g/dL Pituitary panel 11/30/22 Range/Units 11:21 Sodium 130 L (137-145) mmol/L Potassium 4.5 (3.5-5.1) mmol/L Chloride 102 (98-107) mmol/L Carbon Dioxide 22 (22-30) mmol/L BUN 19 H (7-17) mg/dL Creatinine 0.57 (0.52-1.04) mg/dL Glucose 131 H (74-99) mg/dL Calcium 9.3 (8.4-10.2) mg/dL Adrenal panel 11/30/22 Range/Units 11:21 Sodium 130 L (137-145) mmol/L Potassium 4.5 (3.5-5.1) mmol/L Chloride 102 (98-107) mmol/L Carbon Dioxide 22 (22-30) mmol/L BUN 19 H (7-17) mg/dL Creatinine 0.57 (0.52-1.04) mg/dL Glucose 131 H (74-99) mg/dL Calcium 9.3 (8.4-10.2) mg/dL Total Bilirubin 0.8 (0.2-1.3) mg/dL AST 28 (14-36) U/L ALT 17 (4-34) U/L Alkaline Phosphatase 87 (38-126) U/L Total Protein 6.3 (6.3-8.2) g/dL Albumin 3.7 (3.5-5.0) g/dL Assessment and Plan Assessment: Acute on chronic rectal prolapse. The patient was taken to the operating room. We will try to reduce the bowel. If not she will need to undergo exploratory laparotomy with excision of the rectal prolapse.
[2022-11-30] MEDS ORDERED: NALOXONE 0.4 MG/ML 1 ML VIAL IV PRN ×3 (12:38→16:06)
[2022-11-30] MEDS ORDERED: metroNIDAZOLE-NS PMX 500 MG in SALINE 1 100ML.BAG IVPB STA (12:39)
[2022-11-30 12:48] LABS: Partial Thromboplastin Time 29.1 sec (22.0-30.0); Prothrombin Time 10.2 sec (9.0-12.0)
[2022-11-30] MEDS: SODIUM CHLORIDE 0.9% 1,000 ML IV SCH (13:03)
[2022-11-30] MEDS ORDERED: HYDROmorphone (PF) 1 MG/ML ONE (13:20)
[2022-11-30] MEDS ORDERED: SODIUM CHLORIDE 0.9% 100 ML BAG ONE (13:20)
[2022-11-30] MEDS ORDERED: LIDOCAINE 2% INJ 20 MG/ML (2 ML VIAL) ONE (13:20)
[2022-11-30] MEDS ORDERED: PROPOFOL 10 MG/ML 20 ML VIAL IV ONE (13:20)
[2022-11-30] MEDS ORDERED: ROCURONIUM 10 MG/ML (5 ML VIAL) IV ONE (13:20)
[2022-11-30] MEDS ORDERED: NEOSTIGMINE 1 MG/ML 10 ML VIAL ONE (13:20)
[2022-11-30] MEDS ORDERED: ALBUTEROL HFA INHALER INHALATION ONE (13:20)
[2022-11-30] MEDS ORDERED: ONDANSETRON 4 MG/2 ML VIAL ONE (13:20)
[2022-11-30] MEDS ORDERED: GLYCOPYRROLATE 0.2 MG/ML 2 ML VIAL ONE (13:20)
[2022-11-30] MEDS ORDERED: ePHEDrine 50 MG/ML 1 ML VIAL ONE (13:20)
[2022-11-30] MEDS ORDERED: ceFAZolin 1,000 MG VIAL ONE (13:20)
[2022-11-30] MEDS ORDERED: HEPARIN SODIUM,PORCINE 5,000 UNIT/ML 1 ML VIAL ONE (13:20)
[2022-11-30] MEDS ORDERED: fentaNYL (PF) 50 MCG/ML 2 ML AMP ONE (13:20)
[2022-11-30] MEDS ORDERED: LACTATED RINGERS 1,000 ML IV ONE ×2 (13:25→14:58)
--- NOTE | 2022-11-30 15:07 | P.OP ---
Date of Procedure: 11/30/22 Preoperative Diagnosis: Strangulated rectal prolapse Postoperative Diagnosis: Stranding and rectal prolapse Procedure(s) Performed: Exploratory laparotomy Reduction of rectal prolapse Rectosigmoid resection End colostomy Anesthesia: CAMRYN Surgeon: Tirso Kerr Estimated Blood Loss (ml): 50 Pathology: other (Rectosigmoid) Condition: stable Disposition: PACU Description of Procedure: The patient's placed on the operative table in the supine position. She received general endotracheal tube anesthesia. She was then placed in dorsal 5 position. Her abdomen was then prepped and draped usual sterile fashion. The perineum had been prepped and draped as well. Prior to prepping an attempt was made to reduce the rectal prolapse over this impossible. The bowel appeared to be ischemic. A midline incision was made. The abdomen was entered through the midline scar. And then the Bookwalter retractors placed a wound. There is evidence of diverticulitis. The left colon was mobilized. The sigmoid colon mobilized. And then the rectum was reduced with traction. The rectum was very inflamed and edematous. Once the rectal prolapse was reduced. The bowel was too thick to staple across. The bowel was then cut with the electrocautery. And then the rectal stump was oversewn with 3-0 Prolene suture and then 3-0 Vicryl suture. The redundant bowel mesentery was then divided using the Enseal device. The distal left colon was transected with the linear cutter. The specimens of pathology. The remaining left colon was mobilized by dividing the white line of Toldt. A suitable length of colon was found for the colostomy. This point the abdomen was irrigated is no bleeding seen. A YUMIKO drains placed in the pelvis and brought through the right upper quadrant. The fascia in the left upper quadrant was then divided for the colostomy site. Local was brought up through the colostomy site. The fascia midline was closed using double-armed looped 0 PDS suture. Skin was closed ramo. The colostomy then matured with 3-0 Vicryl suture. Patient top she will was sent to recovery room in stable condition.
[2022-11-30] MEDS ORDERED: HYDROmorphone 0.5 MG/0.5 ML SYRINGE IVP ONE (15:40)
[2022-11-30] MEDS ORDERED: diphenhydrAMINE 50 MG/ML 1 ML VIAL IVP PRN (16:06)
--- NOTE | 2022-11-30 16:09 | P.ANPRN ---
Procedure Note - Anesthesia - Epidural/Spinal Epidural Continuous Time Out Performed: Yes Date of Procedure: 11/30/22 Procedure Start Time: 15:47 Procedure Stop Time: 15:58 Location of Patient: Phase I Indication: Acute Post-Operative Pain, Requested by Surgeon Sedation Type: Sedate with meaningful contact maintained Preparation: Sterile Dressing Position: Sitting Catheter: Indwelling Needle Guage: 18 Blood Aspirated: No Pain Paresthesia on Injection Noted: No Events: Uneventful and Well Tolerated
[2022-11-30] MEDS: ROPIVACAINE 250 MG, HYDROMORPHONE (PF) 5 MG in SODIUM CHLORIDE 0.9% 200 ML EPIDURAL PRN ×3 (16:50→17:12)
[2022-11-30] MEDS: ONDANSETRON 4 MG/2 ML VIAL IVP PRN (17:07)
[2022-11-30] MEDS: LOSARTAN 50 MG TAB PO SCH (17:52)
[2022-11-30] MEDS: prednisoLONE ACETATE 1% OPHTH DROPS 5 ML BTL BOTH EYES SCH ×2 (18:51→22:01)
[2022-11-30] MEDS ORDERED: HEPARIN SODIUM,PORCINE 5,000 UNIT/ML 1 ML VIAL SQ SCH (21:00)
[2022-11-30] MEDS: amLODIPine 5 MG TAB PO SCH (22:00)
[2022-11-30] MEDS: METOPROLOL TARTRATE 25 MG TAB PO SCH (22:00)
[2022-12-01] MEDS: SODIUM CHLORIDE 0.9% 1,000 ML IV SCH ×3 (00:25→20:15)
--- NOTE | 2022-12-01 00:25 | P.HPIM ---
History of Present Illness H&P Date: 11/30/22 Chief Complaint: Rectal prolapse Patient is a 77-year-old female with a known history of hypertension, hyperlipidemia, rectal prolapse and bladder prolapse and history of constipation presents ER with complaints of rectal bleeding since yesterday and also having hemorrhoids. She has not been able to pass gas. Patient had cataract surgery recently. Patient states that he has been having intermittent rectal prolapse for the past 9 years. She has been having severe constipation for the past 1 week. She has been pushing to go to the bathroom and since then telepathology rectal prolapse. She has been having symptoms for the past 2 days. Patient had previous ER visit to reduce the rectal prolapse but was not possible due to edema of the bowel. Patient was seen by general surgery and was taken to the OR for reduction. Laboratory data showed WBC 14.8 hemoglobin 13.1 and platelets 285 Sodium 130 potassium 4.5 chloride 102 bicarb is 22 BUN 19 and creatinine 0.57 and blood sugar is 131 and lactic acid 1.6. Liver enzymes are not elevated. Patient has been afebrile on admission. Was given a dose of ceftriaxone and Flagyl in the ER. Review of Systems Constitutional: Patient denies any fever or chills . no Generalized weakness. Abdomen: Patient denied any nausea or vomiting or abd. pain. Rectal prolapse and pain.Constipation. Cardiovascular: Patient denies any chest pain or short of breath no palpitations. Respiratory: patient denied any cough . no sputum production. No shortness of breath Neurologic: Patient denied any numbness or tingling headache. Musculoskeletal: Patient denies any complaints of joint swelling or deformity. Skin: Negative Psychiatric: Negative Endocrine: No heat or cold intolerance. No recent weight gain. Genitourinary: No dysuria or hematuria. 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 History of Any Multi-Drug Resistant Organisms: None Reported Past Surgical History: Joint Replacement Additional Past Surgical History / Comment(s): Left hip surgery Past Anesthesia/Blood Transfusion Reactions: No Reported Reaction Past Psychological History: No Psychological Hx Reported Smoking Status: Never smoker Past Alcohol Use History: None Reported Past Drug Use History: None Reported - Past Family History Mother Family Medical History: Cancer Sister(s) Family Medical History: Cancer Medications and Allergies Home Medications Medication Instructions Recorded Confirmed Type Metoprolol Tartrate [Lopressor] 25 mg PO BID 08/15/20 11/30/22 History amLODIPine [Norvasc] 5 mg PO HS 08/15/20 11/30/22 History Losartan Potassium 100 mg PO DAILY 10/31/21 11/30/22 History Ascorbic Acid [Vitamin C] 500 mg PO DAILY 11/30/22 11/30/22 History Cholecalciferol [Vitamin D3 (25 25 mcg PO DAILY 11/30/22 11/30/22 History Mcg = 1000 Iu)] Garlic 1,000 mg PO DAILY 11/30/22 11/30/22 History Glucosamine/Chondr Mack A Sod [Osteo 1 tab PO DAILY 11/30/22 11/30/22 History Bi-Flex Caplet] Moxifloxacin HCl [Moxifloxacin 1 drop BOTH EYES QID 11/30/22 11/30/22 History 0.5%] Pravastatin Sodium [Pravachol] 40 mg PO DAILY 11/30/22 11/30/22 History Vitamin A 2,400 mcg PO DAILY 11/30/22 11/30/22 History Vitamin B Complex 1 cap PO DAILY 11/30/22 11/30/22 History Vitamin E (Dl,Tocopheryl Acet) 400 unit PO DAILY 11/30/22 11/30/22 History [Vitamin E (400 Iu = 180 mg)] prednisoLONE ACETATE 1% OPHTH 1 drops BOTH EYES QID 11/30/22 11/30/22 History [Pred Forte 1%] Allergies Allergy/AdvReac Type Severity Reaction Status Date / Time adhesive tape Allergy Rash/Hives Verified 11/30/22 12:43 latex Allergy Rash/Hives Verified 11/30/22 14:01 Physical Exam Vitals: Vital Signs Temp Pulse Resp BP Pulse Ox 11/30/22 13:00 78 18 194/78 95 11/30/22 10:13 98.0 F 68 18 202/92 96 Intake and Output 11/29/22 11/30/22 11/30/22 22:59 06:59 14:59 Other: Weight 59.421 kg PHYSICAL EXAMINATION: Patient is lying in the bed comfortably, no acute distress, awake alert and oriented.. HEENT: Normocephalic. Neck is supple. Pupils reactive. Erythematous conjunctiva. Nostrils clear. Oral cavity is moist. Neck reveals no JVD, carotid bruits, or thyromegaly. CHEST EXAMINATION: Trachea is central. Symmetrical expansion. Lung serna clear to auscultation and percussion. CARDIAC: Normal S1, S2 with no gallops. No murmurs ABDOMEN: Soft. Bowel sounds present. Nontender. No organomegaly. No abdominal bruits. Large rectal prolapse with edematous bowel. Extremities: reveal no edema. No clubbing or cyanosis Neurologically awake, alert, oriented x3 with well-coordinated movements. No focal deficits noted Skin: No rash or skin lesions. Psychiatric: Coperative. Nonsuicidal, Musculoskeletal: No joint swelling or deformity. Normal range of motion. Results CBC & Chem 7: 12/01/22 05:43 12/01/22 05:43 Labs: Abnormal Lab Results - Last 24 Hours (Table) 11/30/22 11/30/22 Range/Units 11:21 11:21 WBC 14.8 H (3.8-10.6) k/uL Neutrophils # 13.5 H (1.3-7.7) k/uL Lymphocytes # 0.6 L (1.0-4.8) k/uL Sodium 130 L (137-145) mmol/L BUN 19 H (7-17) mg/dL Glucose 131 H (74-99) mg/dL Thrombosis Risk Factor Assmnt - DVT/VTE Prophylaxis DVT/VTE Prophylaxis: Pharmacologic Prophylaxis ordered
[2022-12-01] MEDS: PRAVASTATIN SODIUM 40 MG TAB PO SCH (08:42)
[2022-12-01] MEDS: METOPROLOL TARTRATE 25 MG TAB PO SCH ×2 (08:42→20:18)
[2022-12-01] MEDS: prednisoLONE ACETATE 1% OPHTH DROPS 5 ML BTL BOTH EYES SCH ×4 (08:43→22:12)
[2022-12-01] MEDS: ENOXAPARIN 40 MG/0.4 ML SYRINGE SQ SCH (08:43)
[2022-12-01] MEDS: LOSARTAN 50 MG TAB PO SCH (08:43)
--- NOTE | 2022-12-01 09:50 | P.PN ---
Progress Note - Text Progress Note Date: 12/01/22 Patient's resting comfortably in her bed. She is postoperative day 1 from low anterior section for strangulate rectal prolapse. On exam vital signs appear stable. Abdomen is soft.. Colostomy is pink. Patient will continue receive supportive care. She will have her diet advanced once she has return of bowel function.
[2022-12-01 10:27] LABS: HCT 30.5 % (37.2-46.3); MCH 29.9 pg (27.0-32.0); MCHC 32.8 d/dL (32.0-37.0); Mean Platelet Volume 11.5 FL (9.5-12.2); NRBC Per 100 WBC 0 X 10*3/uL (0.00-0.01); Platelet Count 261 X 10*3/uL (140-440); RBC 3.35 X 10*6/uL (4.10-5.20); RDW 14.9 % (11.5-14.5); WBC 13.31 X 10*3/uL (4.50-10.00)
[2022-12-01 10:33] LABS: ALT 11 U/L (8-44); AST 21 U/L (13-35); Albumin 2.8 d/dL (3.8-4.9); Albumin/Globulin Ratio 1.65 Ratio (1.60-3.17); Alkaline Phosphatase 60 U/L (41-126); BUN/Creat Ratio 22.29 Ratio (12.00-20.00); Blood Urea Nitrogen 15.6 mg/dL (9.0-27.0); Calcium 8.2 mg/dL (8.7-10.3); Carbon Dioxide 21.1 mmol/L (21.6-31.8); Chloride 102 mmol/L (96-109); Globulin 1.7 d/dL (1.6-3.3); Glucose 124 mg/dL (70-110); Potassium 4.3 mmol/L (3.5-5.5); Sodium 132 mmol/L (135-145); Total Bilirubin 0.4 mg/dL (0.3-1.2); Total Protein 4.5 d/dL (6.2-8.2)
[2022-12-01 11:03] LABS: Basophils # (A) 0.03 X 10*3/uL (0.00-0.10); Basophils % (A) 0.2 %; Eosinophils # (A) 0.02 X 10*3/uL (0.04-0.35); Eosinophils % (A) 0.2 %; Lymphocytes # (A) 0.96 X 10*3/uL (0.90-5.00); Lymphocytes % (A) 7.2 %; Monocytes # (A) 2.03 X 10*3/uL (0.20-1.00); Monocytes % (A) 15.3 %; Neutrophils # (A) 10.22 X 10*3/uL (1.80-7.70); Neutrophils % (A) 76.7 %; RBC Morphology Normal (Normal)
[2022-12-01] MEDS: MOXIFLOXACIN HCL 0.5% DROPS 3 ML BTL BOTH EYES SCH ×3 (14:25→21:25)
--- NOTE | 2022-12-01 16:29 | P.PN ---
Progress Note - Text Progress Note Date: 12/01/22 Postoperative day #1 status post explaretory laparotomy ,epidural catheter placed for postoperative analgesia, patient doing well epidural site okay, patient currently on combination of epidural infusion solution of Ropivacaine 0.0625% and Dilaudid 20 g per mL the infusion rate at 5 ml per hour , patient had no motor deficit epidural site okay , vital signs stable , VAS 2-3 /10 , Assessment and plan= post operative day # 1 patient doing well ,pain well controlled , there is no anesthesia related complications
[2022-12-01] MEDS ORDERED: methylPREDNISolone SOD SUCCI 125 MG/2 ML VIAL IV STA (18:06)
[2022-12-01] MEDS: ONDANSETRON 4 MG/2 ML VIAL IVP PRN (18:18)
[2022-12-01] MEDS: ALBUTEROL NEBULIZED 2.5 MG/3 ML INHALATION SCH (18:37)
--- NOTE | 2022-12-01 18:52 | XR ---
EXAMINATION TYPE: XR chest 1V portable DATE OF EXAM: 12/01/2022 6:37 PM CLINICAL INDICATION:Female, 77 years old with history of SOB; COMPARISON: Chest radiographs from 10/31/2021. TECHNIQUE: XR chest 1V portable Frontal view of the chest. FINDINGS: Lungs/Pleura: Low lung volumes are present. There is no evidence of pleural effusion, focal consolida tion, or pneumothorax. Pulmonary vascularity: Unremarkable. Heart/mediastinum: Cardiomediastinal silhouette is enlarged and stable. Musculoskeletal: Degenerative changes of the shoulder joints. IMPRESSION: Low lung volumes with cardiomegaly. Correlate with serum BNP for congestive heart failure.
[2022-12-01] MEDS ORDERED: FUROSEMIDE 10 MG/ML 2 ML VIAL IV ONE (19:55)
[2022-12-01] MEDS: amLODIPine 5 MG TAB PO SCH (20:18)
--- NOTE | 2022-12-01 21:18 | P.PN ---
Subjective Progress Note Date: 12/01/22 Patient is a 77-year-old female with a known history of hypertension, hyperlipidemia, rectal prolapse and bladder prolapse and history of constipation presents ER with complaints of rectal bleeding since yesterday and also having hemorrhoids. She has not been able to pass gas. Patient had cataract surgery recently. Patient states that he has been having intermittent rectal prolapse for the past 9 years. She has been having severe constipation for the past 1 week. She has been pushing to go to the bathroom and since then telepathology rectal prolapse. She has been having symptoms for the past 2 days. Patient had previous ER visit to reduce the rectal prolapse but was not possible due to edema of the bowel. Patient was seen by general surgery and was taken to the OR for reduction. Laboratory data showed WBC 14.8 hemoglobin 13.1 and platelets 285 Sodium 130 potassium 4.5 chloride 102 bicarb is 22 BUN 19 and creatinine 0.57 and blood sugar is 131 and lactic acid 1.6. Liver enzymes are not elevated. Patient has been afebrile on admission. Was given a dose of ceftriaxone and Flagyl in the ER. 12/01/2022. Patient was taken to the OR yesterday and is status post exploratory laparotomy, reduction of the rectal prolapse and rectosigmoid resection with end colostomy placement. Patient is currently NPO. Electrolyte and oriented x3. Currently on 1 L oxygen via nasal cannula. No complaints of chest pain. Patient does have mild shortness of breath. No complaints of fever or chills. Abdominal pain is better with medications. No cough or sputum production. Lab data showed WBC 13.3 hemoglobin 10.0 and platelets 261 Sodium 132 potassium 4.3 chloride 102 bicarb is 21.1 BUN 15.6 and creatinine 0.7 and blood sugar is 124. General surgery is on board. Current medications reviewed. Objective - Vital Signs Vital signs: Vital Signs Temp 98.0 F 12/01/22 07:10 Pulse 73 12/01/22 07:10 Resp 16 12/01/22 07:10 BP 100/67 12/01/22 07:10 Pulse Ox 96 12/01/22 07:53 FiO2 Intake & Output 11/30/22 12/01/22 12/01/22 18:59 06:59 18:59 Intake Total 550 1265 Output Total 1300 325 Balance -750 940 Weight 59.421 kg Intake: IV 550 Intake, IV Titration 1025 Amount Lactated Ringers 1,000 ml 500 @ 125 mls/hr IV .Q8H [facility] Rx#:[id number] Sodium Chloride 0.9% 1, 525 000 ml @ 75 mls/hr IV . [id number] [facility] Rx#:[id number] Oral 240 Output: Drainage 50 Abdomen 50 Urine 1250 275 Estimated Blood Loss 50 Other: Voiding Method Indwelling Catheter Indwelling Catheter - Exam PHYSICAL EXAMINATION: Patient is lying in the bed comfortably, no acute distress, awake alert and oriented.. HEENT: Normocephalic. Neck is supple. Pupils reactive. Erythematous conjunctiva. Nostrils clear. Oral cavity is moist. Neck reveals no JVD, carotid bruits, or thyromegaly. CHEST EXAMINATION: Trachea is central. Symmetrical expansion. Lung serna clear to auscultation and percussion. Bibasilar diminished sounds. CARDIAC: Normal S1, S2 with no gallops. No murmurs ABDOMEN: Soft. Bowel sounds present. Nontender. No organomegaly. No abdominal bruits. Large rectal prolapse with edematous bowel. Extremities: reveal no edema. No clubbing or cyanosis Neurologically awake, alert, oriented x3 with well-coordinated movements. No focal deficits noted Skin: No rash or skin lesions. Psychiatric: Coperative. Nonsuicidal, Musculoskeletal: No joint swelling or deformity. Normal range of motion. - Labs CBC & Chem 7: 12/01/22 05:43 12/01/22 05:43 Labs: Abnormal Lab Results - Last 24 Hours (Table) 12/01/22 12/01/22 Range/Units 05:43 05:43 WBC 13.31 H (4.50-10.00) X 10*3/uL RBC 3.35 L (4.10-5.20) X 10*6/uL Hgb 10.0 L (12.0-15.0) d/dL Hct 30.5 L (37.2-46.3) % RDW 14.9 H (11.5-14.5) % Neutrophils # 10.22 H (1.80-7.70) X 10*3/uL Monocytes # 2.03 H (0.20-1.00) X 10*3/uL Eosinophils # 0.02 L (0.04-0.35) X 10*3/uL Sodium 132 L (135-145) mmol/L Carbon Dioxide 21.1 L (21.6-31.8) mmol/L BUN/Creatinine Ratio 22.29 H (12.00-20.00) Ratio Glucose 124 H (70-110) mg/dL Calcium 8.2 L (8.7-10.3) mg/dL Total Protein 4.5 L (6.2-8.2) d/dL Albumin 2.8 L (3.8-4.9) d/dL Assessment and Plan Assessment: Acute on chronic large rectal prolapse. Status post expiratory laparotomy, reduction of prolapse and sigmoid resection and end colostomy on 11/30/2022. Chronic constipation Recent eye surgery last week. History of bladder prolapse and Hypertension Osteoarthritis with prior history of left hip surgery Hyperlipidemia DVT prophylaxis with Lovenox subcu Plan: Patient will be continued on gentle IV hydration and monitor respiratory status closely. Continue pain management, encourage incentive spirometry and ambulation. Continue blood pressure medications as tolerated. Ordered CBC and BMP tomorrow. GI DV prophylaxis. Follow up closely. Time with Patient: Greater than 30
[2022-12-02] MEDS: ONDANSETRON 4 MG/2 ML VIAL IVP PRN ×3 (01:27→23:24)
--- NOTE | 2022-12-02 06:25 | P.PN ---
Progress Note - Text Progress Note Date: 12/02/22 Postoperative day #2 status post explaretory laparotomy ,epidural catheter placed for postoperative analgesia, patient doing well epidural site okay, patient currently on combination of epidural infusion solution of Ropivacaine 0.0625% and Dilaudid 20 g per mL the infusion rate at 5 ml per hour , patient had no motor deficit epidural site okay , vital signs stable , VAS 2-3 /10 , Assessment and plan= post operative day # 2 patient doing well ,pain well controlled , there is no anesthesia related complications
[2022-12-02] MEDS: PRAVASTATIN SODIUM 40 MG TAB PO SCH (08:17)
[2022-12-02] MEDS: MOXIFLOXACIN HCL 0.5% DROPS 3 ML BTL BOTH EYES SCH ×4 (08:17→21:35)
[2022-12-02] MEDS: ENOXAPARIN 40 MG/0.4 ML SYRINGE SQ SCH (08:17)
[2022-12-02] MEDS: LOSARTAN 50 MG TAB PO SCH (08:17)
[2022-12-02] MEDS: METOPROLOL TARTRATE 25 MG TAB PO SCH ×2 (08:17→20:19)
[2022-12-02] MEDS: prednisoLONE ACETATE 1% OPHTH DROPS 5 ML BTL BOTH EYES SCH ×4 (08:18→21:35)
[2022-12-02] MEDS: ALBUTEROL NEBULIZED 2.5 MG/3 ML INHALATION SCH ×4 (09:11→20:15)
[2022-12-02] MEDS: ROPIVACAINE 250 MG, HYDROMORPHONE (PF) 5 MG in SODIUM CHLORIDE 0.9% 200 ML EPIDURAL PRN (10:08)
[2022-12-02 14:02] LABS: Basophils # (A) 0.03 X 10*3/uL (0.00-0.10); Basophils % (A) 0.1 %; Eosinophils # (A) 0.01 X 10*3/uL (0.04-0.35); Eosinophils % (A) 0 %; HGB 8.9 d/dL (12.0-15.0); Lymphocytes # (A) 0.67 X 10*3/uL (0.90-5.00); Lymphocytes % (A) 3.3 %; MCH 30.5 pg (27.0-32.0); MCV 92.5 FL (80.0-97.0); Mean Platelet Volume 12.1 FL (9.5-12.2); Monocytes # (A) 1.75 X 10*3/uL (0.20-1.00); Monocytes % (A) 8.7 %; NRBC Per 100 WBC 0 X 10*3/uL (0.00-0.01); Neutrophils # (A) 17.64 X 10*3/uL (1.80-7.70); Neutrophils % (A) 87.3 %; Platelet Count 259 X 10*3/uL (140-440); RBC 2.92 X 10*6/uL (4.10-5.20); RDW 14.8 % (11.5-14.5); WBC 20.23 X 10*3/uL (4.50-10.00)
[2022-12-02 14:49] LABS: BUN/Creat Ratio 52.62 Ratio (12.00-20.00); Blood Urea Nitrogen 42.1 mg/dL (9.0-27.0); Calcium 8.7 mg/dL (8.7-10.3); Carbon Dioxide 20.5 mmol/L (21.6-31.8); Chloride 102 mmol/L (96-109); Glucose 154 mg/dL (70-110); Potassium 4.7 mmol/L (3.5-5.5); Sodium 131 mmol/L (135-145)
--- NOTE | 2022-12-02 15:08 | P.PN ---
Subjective Progress Note Date: 12/02/22 CHIEF COMPLAINT: Strangulated rectal prolapse HISTORY OF PRESENT ILLNESS: Postoperative day #2 status post exploratory laparotomy, reduction of rectal prolapse, rectosigmoid resection and and colostomy. Patient currently has epidural for pain control. She reports her pain is controlled. She had episode of vomiting last night and a small subtle vomiting this morning. She was made nothing by mouth. Denies any flatus or BM. YUMIKO drain with 40 mL sanguinous output. Afebrile. WBC is up from 13-20 patient did receive steroids. Hgb trending down to 8.9 platelets 259 Na131 K 4.7 creatinine 0.8 PHYSICAL EXAM: VITAL SIGNS: Reviewed. GENERAL: Well-developed in no acute distress. HEENT: No sclera icterus. Extraocular movements grossly intact. Moist buccal mucosa. Head is atraumatic, normocephalic. ABDOMEN: Soft. Nondistended. Ostomy with sanguinous output. Stoma beefy red. Incision clean dry and intact NEUROLOGIC: Alert and oriented. Cranial nerves II through XII grossly intact. ASSESSMENT: 1. Strength related rectal prolapse status post exploratory laparotomy, reduction of rectal prolapse, rectosigmoid resection and and colostomy PLAN: -Patient can resume sips of clear liquids -Encourage patient to ambulate -Encourage patient to use incentive spirometer -Repeat labs in a.m. -Continue IV fluids -Epidural and Lima catheter to be discontinued tomorrow -DVT prophylaxis Lovenox Physician Coupling Machine Operator note has been reviewed by physician. Signing provider agrees with the documented findings, assessment, and plan of care. Objective - Vital Signs Vital signs: Vital Signs Temp 97.4 F L 12/02/22 13:46 Pulse 74 12/02/22 13:46 Resp 19 12/02/22 13:46 BP 84/52 12/02/22 13:46 Pulse Ox 97 12/02/22 13:46 FiO2 Intake & Output 12/01/22 12/02/22 12/02/22 18:59 06:59 18:59 Intake Total 720 185 Output Total 442 415 300 Balance 278 -230 -300 Intake: Intake, IV Titration 185 Amount Sodium Chloride 0.9% 1, 110 000 ml @ 10 mls/hr IV . Q24H [facility] Rx#:[id number] Sodium Chloride 0.9% 1, 75 000 ml @ 75 mls/hr IV . [id number] [facility] Rx#:[id number] Oral 720 Output: Drainage 40 40 Abdomen 40 40 Urine 400 375 300 Emesis 2 Other: Voiding Method Indwelling Catheter Indwelling Catheter Indwelling Catheter - Labs CBC & Chem 7: 12/02/22 07:24 12/02/22 07:24 Labs: Abnormal Lab Results - Last 24 Hours (Table) 12/02/22 12/02/22 Range/Units 07:24 07:24 WBC 20.23 H (4.50-10.00) X 10*3/uL RBC 2.92 L (4.10-5.20) X 10*6/uL Hgb 8.9 L (12.0-15.0) d/dL Hct 27.0 L (37.2-46.3) % RDW 14.8 H (11.5-14.5) % Neutrophils # 17.64 H (1.80-7.70) X 10*3/uL Lymphocytes # 0.67 L (0.90-5.00) X 10*3/uL Monocytes # 1.75 H (0.20-1.00) X 10*3/uL Eosinophils # 0.01 L (0.04-0.35) X 10*3/uL Sodium 131 L (135-145) mmol/L Carbon Dioxide 20.5 L (21.6-31.8) mmol/L BUN 42.1 H (9.0-27.0) mg/dL BUN/Creatinine Ratio 52.62 H (12.00-20.00) Ratio Glucose 154 H (70-110) mg/dL Microbiology - Last 24 Hours (Table) 11/30/22 12:15 Blood Culture - Preliminary Blood 11/30/22 12:25 Blood Culture - Preliminary Blood
[2022-12-02] MEDS: SODIUM CHLORIDE 0.9% 1,000 ML IV SCH ×2 (21:09)
--- NOTE | 2022-12-03 01:07 | PN ---
PROGRESS NOTE DATE OF SERVICE: 12/02/2022 SUBJECTIVE: This is a 77-year-old woman, who was admitted with acute on chronic large rectal prolapse, underwent reduction of the prolapse, bowel resection, and colostomy. No chest pain. No palpitations. No fever. PHYSICAL EXAMINATION: VITAL SIGNS: Pulse is 74, blood pressure 84/62, respirations 19. CHEST: Few scattered rhonchi. ABDOMEN: Soft. NERVOUS SYSTEM: Nonfocal. LABORATORY DATA: . Other labs are noted. The patient had hypotension today. PAST MEDICAL: Reviewed. REVIEW OF SYSTEMS: 14-point review is negative except as mentioned earlier. CURRENT MEDICATIONS: Reviewed. ASSESSMENT: 1. Acute on chronic large rectal prolapse, status post exploratory laparotomy, reduction of prolapse and sigmoid resection and colostomy. 2. Relative hypotension. 3. Chronic constipation. 4. History of bladder prolapse. 5. Elevated WBC. RECOMMENDATIONS: Recommend to continue current management and treatment otherwise. At this time, I would recommend cultures, avoid all the blood pressure medications with blood pressure less than 100. Continue to monitor. Repeat labs. Prognosis guarded. Further recommendations to follow. MMODL / IJN: [id number] / STEPHEN
[2022-12-03] MEDS: SODIUM CHLORIDE 0.9% 1,000 ML IV SCH ×3 (03:55→22:24)
[2022-12-03] MEDS: PRAVASTATIN SODIUM 40 MG TAB PO SCH (08:16)
[2022-12-03] MEDS: METOPROLOL TARTRATE 25 MG TAB PO SCH ×2 (08:16→21:42)
--- NOTE | 2022-12-03 08:16 | P.PN ---
Progress Note - Text 12/03/22 753am 77-year-old female status post explore lap by Dr. Kerr. Patient has an epidural catheter was solution running at 4 mL an hour with a VAS of 2 patient has noticed motor or sensory deficit and hasn't been able to ambulate well. Plan to DC the epidural nurse informed
[2022-12-03] MEDS: PIPERACILLIN-TAZOBACTAM 3.375 GM in SODIUM CHLORIDE 0.9% 100 ML IVPB SCH ×2 (08:17→16:44)
[2022-12-03] MEDS: ENOXAPARIN 40 MG/0.4 ML SYRINGE SQ SCH (08:18)
[2022-12-03] MEDS: prednisoLONE ACETATE 1% OPHTH DROPS 5 ML BTL BOTH EYES SCH ×5 (08:19→22:24)
[2022-12-03] MEDS: MOXIFLOXACIN HCL 0.5% DROPS 3 ML BTL BOTH EYES SCH ×5 (08:19→22:23)
[2022-12-03] MEDS: PANTOPRAZOLE 40 MG/10 ML VIAL IVP SCH ×2 (08:20→21:43)
[2022-12-03] MEDS: ALBUTEROL NEBULIZED 2.5 MG/3 ML INHALATION SCH ×4 (08:49→21:04)
[2022-12-03 11:25] LABS: BUN/Creat Ratio 59.23 Ratio (12.00-20.00); Calcium 8.1 mg/dL (8.7-10.3); Carbon Dioxide 20.1 mmol/L (21.6-31.8); Chloride 103 mmol/L (96-109); Glucose 133 mg/dL (70-110); Potassium 4.9 mmol/L (3.5-5.5); Sodium 131 mmol/L (135-145)
[2022-12-03 11:44] LABS: Basophils # (A) 0.02 X 10*3/uL (0.00-0.10); Basophils % (A) 0.1 %; Eosinophils # (A) 0.02 X 10*3/uL (0.04-0.35); Eosinophils % (A) 0.1 %; HCT 21.6 % (37.2-46.3); HGB 6.8 d/dL (12.0-15.0); Lymphocytes # (A) 0.85 X 10*3/uL (0.90-5.00); Lymphocytes % (A) 4.2 %; MCH 29.2 pg (27.0-32.0); MCHC 31.5 d/dL (32.0-37.0); MCV 92.7 FL (80.0-97.0); Mean Platelet Volume 12.2 FL (9.5-12.2); Monocytes # (A) 1.89 X 10*3/uL (0.20-1.00); Monocytes % (A) 9.4 %; NRBC Per 100 WBC 0 X 10*3/uL (0.00-0.01); Neutrophils # (A) 17.08 X 10*3/uL (1.80-7.70); Neutrophils % (A) 85.3 %; Platelet Count 227 X 10*3/uL (140-440); RBC 2.33 X 10*6/uL (4.10-5.20); RBC Morphology Normal (Normal); RDW 15.2 % (11.5-14.5); WBC 20.05 X 10*3/uL (4.50-10.00)
--- NOTE | 2022-12-03 13:10 | P.PN ---
Subjective Progress Note Date: 12/03/22 CHIEF COMPLAINT: Strangulated rectal prolapse HISTORY OF PRESENT ILLNESS: Postoperative day #3 status post exploratory laparotomy, reduction of rectal prolapse, rectosigmoid resection and and colostomy. Epidural scheduled to be discontinued today patient reports a decreased appetite. Overall feeling better than yesterday. Denies any nausea vomiting. Was started on Zosyn for leukocytosis. YUMIKO drain 50 mL output. Afebrile. Not tachycardia. WBC stayed same 20 hemoglobin has dropped from 8.9- 6.8 PHYSICAL EXAM: VITAL SIGNS: Reviewed. GENERAL: Well-developed in no acute distress. HEENT: No sclera icterus. Extraocular movements grossly intact. Moist buccal mucosa. Head is atraumatic, normocephalic. ABDOMEN: Soft. Nondistended. Ostomy with sanguinous output. Stoma beefy red. Incision clean dry and intact NEUROLOGIC: Alert and oriented. Cranial nerves II through XII grossly intact. ASSESSMENT: 1. Strangulated rectal prolapse status post exploratory laparotomy, reduction of rectal prolapse, rectosigmoid resection and and colostomy PLAN: -Epidural Lima catheter to be discontinued today -Continue IV Dilaudid as needed for pain control -Agree with 1 unit of blood for hemoglobin of 6.8 -Agree with consulted PT OT. Encouraged patient to increase activity level -Continue clear liquids -Encourage patient to use incentive spirometer -Repeat labs in a.m. -Medicine decreased IV fluids. -DVT prophylaxis Lovenox Physician Heating Worker note has been reviewed by physician. Signing provider agrees with the documented findings, assessment, and plan of care. Objective - Vital Signs Vital signs: Vital Signs Temp 97.7 F 12/03/22 07:28 Pulse 76 12/03/22 08:58 Resp 17 12/03/22 08:00 BP 90/56 12/03/22 07:28 Pulse Ox 98 12/03/22 08:50 FiO2 Intake & Output 12/02/22 12/03/22 12/03/22 18:59 06:59 18:59 Output Total 300 150 50 Balance -300 -150 -50 Output: Drainage 50 50 Abdomen 50 50 Urine 300 100 Other: Voiding Method Indwelling Catheter Indwelling Catheter Indwelling Catheter - Labs CBC & Chem 7: 12/03/22 06:14 12/03/22 06:14 Labs: Abnormal Lab Results - Last 24 Hours (Table) 12/02/22 12/02/22 Range/Units 07:24 07:24 WBC 20.23 H (4.50-10.00) X 10*3/uL RBC 2.92 L (4.10-5.20) X 10*6/uL Hgb 8.9 L (12.0-15.0) d/dL Hct 27.0 L (37.2-46.3) % RDW 14.8 H (11.5-14.5) % Neutrophils # 17.64 H (1.80-7.70) X 10*3/uL Lymphocytes # 0.67 L (0.90-5.00) X 10*3/uL Monocytes # 1.75 H (0.20-1.00) X 10*3/uL Eosinophils # 0.01 L (0.04-0.35) X 10*3/uL Sodium 131 L (135-145) mmol/L Carbon Dioxide 20.5 L (21.6-31.8) mmol/L BUN 42.1 H (9.0-27.0) mg/dL BUN/Creatinine Ratio 52.62 H (12.00-20.00) Ratio Glucose 154 H (70-110) mg/dL Microbiology - Last 24 Hours (Table) 11/30/22 12:15 Blood Culture - Preliminary Blood 11/30/22 12:25 Blood Culture - Preliminary Blood
--- NOTE | 2022-12-03 13:15 | XR ---
EXAMINATION TYPE: XR chest 1V portable DATE OF EXAM: 12/03/2022 COMPARISON: 12/01/2022 HISTORY: Shortness of breath TECHNIQUE: Single frontal view of the chest is obtained. FINDINGS: A moderate-sized hiatal hernia. Limited inspiration with basilar atelectasis. No overt is[place] lure. Atherosclerotic change aorta. Bilateral shoulder arthropathy. No pneumothorax. Surgical ramo in the abdomen. IMPRESSION: Limited inspiration with bilateral atelectasis or scarring.
--- NOTE | 2022-12-03 15:41 | CDI ---
Documentation Clarification Form Date: 12/03/2022 02:47:00 PM From: Radha Prado RN, CCDS Admit Date: 11/30/2022 12:44:00 PM Patient Name: Theresa Mendoza Visit Number: [id number] Discharge Date: ATTENTION: The Clinical Documentation Specialists (CDI) and [facility] Coding Staff appreciate your assistance in clarifying documentation. Please respond to the clarification below the line at the bottom and electronically sign. The CDI & [facility] Coding staff will review the response and follow-up if needed. Please note: Queries are made part of the Legal Health Record. If you have any questions, please contact the author of this message via ITS. Dr. Sowmya Stacy Your patient has an abnormal lab value: noted in progress notes hemoglobin 12/02: 8.9 on 12/03 hemoglobin 6.8. Please clarify if there is an additional diagnosis and/or clinical significance related to this value. 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 History of constipation. He has been having intermittent rectal prolapse for the past 9 years. 11/30 Procedure Exploratory laparotomy. reduction of rectal prolapse, Rectosigmoid resection. Estimated blood loss 50 ml 11/30 HGB 13.1 HCT 39.4 12/01 HGB 10.0 HCT 30.5 12/02 Surgery progress notes: Hgb trending down to 8.9 platelets 259. Ostomy with sanguinous output. Stoma beefy red. Incision clean dry and intact. 12/03 Surgery progress notes: WBC stayed same 20 hemoglobin has dropped from 8.9 -6.8. Treatment: Monitor Labs CBC IV fluids 1 unit of blood for hemoglobin of 6.8, repeat labs in a.m Is there an additional diagnosis and/or clinical significance related to the above lab result/information? [ ] Acute blood loss anemia, expected [ ] No additional diagnosis/Not clinically significant [ ] Other, please specify [ ] Unable to determine (Template Last Revised: April 2020) Acute blood loss anemia, expected MTDD
--- NOTE | 2022-12-03 18:19 | PN ---
PROGRESS NOTE DATE OF SERVICE: 12/03/2022 SUBJECTIVE: This is a 77-year-old woman, who was admitted after surgery for rectal prolapse, improving significantly. ACOUSTICAL ENGINEER has been removed. No chest pain. No palpitation. PHYSICAL EXAMINATION: VITAL SIGNS: Pulse 88, blood pressure 102/84, respirations 16. CHEST: Clear to auscultation. CARDIOVASCULAR: S1 and S2. ABDOMEN: Soft and nontender. LABORATORY DATA: Hemoglobin is 6.8 today. ASSESSMENT: 1. [id number] large rectal prolapse, status post exploratory laparotomy, reduction of the prolapse, sigmoid resection, and colostomy. 2. Relative hypotension. 3. Anemia, multifactorial as expected. 4. Chronic constipation. 5. History of bladder prolapse. 6. Elevated WBC. RECOMMENDATIONS: Recommend to continue current medications. Continue symptomatic treatment. Repeat labs. 1 unit transfusion. The patient's white count is elevated. Guarded prognosis. Further recommendations to follow. She recently had a COVID last year. MMODL / IJN: [id number] /
[2022-12-03] MEDS: ONDANSETRON 4 MG/2 ML VIAL IVP PRN (21:42)
[2022-12-03 21:49] LABS: Basophils % (A) 0 %; Eosinophils # (A) 0.1 k/uL (0-0.7); Eosinophils % (A) 0 %; HCT 25.7 % (34.0-46.0); Lymphocytes # (A) 0.8 k/uL (1.0-4.8); Lymphocytes % (A) 4 %; MCH 30.9 pg (25.0-35.0); MCHC 33.2 g/dL (31.0-37.0); MCV 93.1 fL (80.0-100.0); Mean Platelet Volume 9.1; Monocytes # (A) 1.2 k/uL (0-1.0); Monocytes % (A) 7 %; Neutrophils # (A) 14.7 k/uL (1.3-7.7); Neutrophils % (A) 87 %; Platelet Count 238 k/uL (150-450); RBC 2.76 m/uL (3.80-5.40)
[2022-12-03 21:57] LABS: HGB 8.5 gm/dL (11.4-16.0)
--- NOTE | 2022-12-03 22:07 | P.CONS ---
History of Present Illness - Reason for Consult Consult date: 12/03/22 High WBC Requesting physician: Sowmya Stacy - Chief Complaint Bleeding per rectum X 1 day - History of Present Illness Patient is a 77-year-old female with a past medical history significant for hypertension hyperlipidemia COVID-19 bladder prolapse and UTI presenting to the hospital 3 days ago on 11/30/2022 for evaluation of rectal bleeding that started the day before presentation to the hospital patient was complaining antibody-positive cath patient has been evaluated on presentation to the hospital patient was afebrile and no fever has been recorded subsequently patient was not significantly high per tensive or tachycardic did have a evaluation by general surgery and the patient was taken to the OR same afternoon in this patient with status post exploratory laparotomy reduction of rectal prolapse rectosigmoid resection and end colostomy no mention of any perforation, patient did have white count of 14,000 on admission that was up to 20,000 yesterday and has been 20,000 today also noticed to have low hemoglobin requiring a blood transfusion creatinine has been normal liver enzymes are normal patient was started on Zosyn blood cultures obtained on has been negative so far infectious disease was consulted for further management because of her elevated white count. On today's evaluation that is 12/03/2022 the patient denies having any fever or any chills patient is breathing comfortable denies any chest pain occasional cough patient have some nausea but no vomiting did have some dull aching pain 3- 4 out of 10 no radiation no output in the colostomy and no vomiting has been reported denies any problem with her IV site, chest x-ray obtained today did shows limited inspiration with bilateral atelectasis versus scarring Review of Systems Positive point and negatives has been mentioned in the HPI, complete review of systems was performed and all other systems are negative Past Medical History Past Medical History: Hyperlipidemia, Hypertension Additional Past Medical History / Comment(s): 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 History of Any Multi-Drug Resistant Organisms: None Reported Past Surgical History: Joint Replacement Additional Past Surgical History / Comment(s): Left hip surgery Past Anesthesia/Blood Transfusion Reactions: No Reported Reaction Past Psychological History: No Psychological Hx Reported Smoking Status: Never smoker Past Alcohol Use History: None Reported Past Drug Use History: None Reported - Past Family History Mother Family Medical History: Cancer Sister(s) Family Medical History: Cancer Medications and Allergies Home Medications Medication Instructions Recorded Confirmed Type Metoprolol Tartrate [Lopressor] 25 mg PO BID 08/15/20 11/30/22 History Ascorbic Acid [Vitamin C] 500 mg PO DAILY 11/30/22 11/30/22 History Cholecalciferol [Vitamin D3 (25 25 mcg PO DAILY 11/30/22 11/30/22 History Mcg = 1000 Iu)] Garlic 1,000 mg PO DAILY 11/30/22 11/30/22 History Glucosamine/Chondr Mack A Sod [Osteo 1 tab PO DAILY 11/30/22 11/30/22 History Bi-Flex Caplet] Moxifloxacin HCl [Moxifloxacin 1 drop BOTH EYES QID 11/30/22 11/30/22 History 0.5%] Pravastatin Sodium [Pravachol] 40 mg PO DAILY 11/30/22 11/30/22 History Vitamin A 2,400 mcg PO DAILY 11/30/22 11/30/22 History Vitamin E (Dl,Tocopheryl Acet) 400 unit PO DAILY 11/30/22 11/30/22 History [Vitamin E (400 Iu = 180 mg)] prednisoLONE ACETATE 1% OPHTH 1 drops BOTH EYES QID 11/30/22 11/30/22 History [Pred Forte 1%] Folic Acid 1 mg PO DAILY@1200 #30 tab 12/09/22 Rx Multivitamins, Thera [Multivitamin 1 each PO DAILY@1200 #30 tab 12/09/22 Rx (formulary)] Thiamine [Vitamin B-1] 100 mg PO DAILY@1200 #30 tab 12/09/22 Rx amLODIPine [Norvasc] 5 mg PO BID #60 tab 12/09/22 Rx Amoxic-Pot Clav 875-125Mg 1 tab PO Q12HR 10 Days #20 tab 12/11/22 Rx [Augmentin 875-125] Fluconazole [Diflucan] 100 mg PO DAILY 10 Days #10 tab 12/11/22 Rx Allergies Allergy/AdvReac Type Severity Reaction Status Date / Time adhesive tape Allergy Rash/Hives Verified 11/30/22 12:43 latex Allergy Rash/Hives Verified 11/30/22 14:01 Physical Exam Vitals: Vital Signs Temp Pulse Pulse Resp BP BP Pulse Ox 12/03/22 16:13 76 12/03/22 16:01 80 12/03/22 14:14 98.5 F 84 17 97/57 12/03/22 13:58 98.2 F 88 16 102/84 96 12/03/22 13:54 98.2 F 88 17 102/88 96 12/03/22 11:41 72 12/03/22 11:32 72 12/03/22 08:58 76 12/03/22 08:50 72 98 12/03/22 08:00 72 17 12/03/22 07:28 97.7 F 72 17 90/56 92 L 12/03/22 01:29 97.4 F L 64 18 91/54 95 12/02/22 20:27 77 12/02/22 20:16 74 12/02/22 19:30 99.4 F 74 18 92/55 96 Intake and Output 12/03/22 12/03/22 12/03/22 06:59 14:59 22:59 Intake Total 0 Output Total 100 50 Balance -100 -50 Intake: Blood Product 0 Rc As-1 Unit 0 [id number] Output: Drainage 50 Abdomen 50 Urine 100 Other: Voiding Method Indwelling Catheter GENERAL DESCRIPTION: Elderly female lying in bed, no distress. No tachypnea or accessory muscle of respiration use. HEENT: Shows Pallor , no scleral icterus. Oral mucous membrane is dry. NECK: Trachea central, no thyromegaly. LUNGS: Unlabored breathing. Clear to auscultation anteriorly. No wheeze or crackle. HEART: S1, S2, regular rate and rhythm. No loud murmur ABDOMEN: Soft, no tenderness , EXTREMITIES: No edema of feet. SKIN: No rash, no masses palpable. NEUROLOGICAL: The patient is awake, alert, oriented x3, mood and affect normal. Results CBC & Chem 7: 12/11/22 06:59 12/09/22 05:24 Labs: Abnormal Lab Results - Last 24 Hours (Table) 12/03/22 12/03/22 12/03/22 Range/Units 06:14 06:14 12:01 WBC 20.05 H (4.50-10.00) X 10*3/uL RBC 2.33 L (4.10-5.20) X 10*6/uL Hgb 6.8 H* (12.0-15.0) d/dL Hct 21.6 L (37.2-46.3) % MCHC 31.5 L (32.0-37.0) d/dL RDW 15.2 H (11.5-14.5) % Neutrophils # 17.08 H (1.80-7.70) X 10*3/uL Lymphocytes # 0.85 L (0.90-5.00) X 10*3/uL Monocytes # 1.89 H (0.20-1.00) X 10*3/uL Eosinophils # 0.02 L (0.04-0.35) X 10*3/uL Sodium 131 L (135-145) mmol/L Carbon Dioxide 20.1 L (21.6-31.8) mmol/L BUN 77.0 H (9.0-27.0) mg/dL Est GFR (CKD-EPI) 43 L (>=60) BUN/Creatinine Ratio 59.23 H (12.00-20.00) Ratio Glucose 133 H (70-110) mg/dL Calcium 8.1 L (8.7-10.3) mg/dL Crossmatch See Detail Microbiology - Last 24 Hours (Table) 11/30/22 12:15 Blood Culture - Preliminary Blood 11/30/22 12:25 Blood Culture - Preliminary Blood Assessment and Plan (1) Leukocytosis Status: Acute Code(s): D72.829 - ELEVATED WHITE BLOOD CELL COUNT, UNSPECIFIED SNOMED Code(s): 102005574 Plan: 1patient with elevated white count in this patient presented to hospital with rectal bleeding and this patient is status post laparotomy with the rectosigmoid resection and diverting colostomy possible reactive for surgery versus abdominal source with the patient also noted to have a drop in hemoglobin requiring a blood transfusion. 2we will obtain blood cultures and check inflammatory markers. 3continue with empiric Zosyn 3.375 g every 8 hours 4if any further worsening of the white count or develops fever will benefit from CT abdominal pelvis We will follow on clinical condition and cultures to further adjust medication if needed Thank you for this consultation we will follow the patient along with you Dictation was produced using [employer] dictation software. please excuse any grammatical, word or spelling errors. Time with Patient: Greater than 30
[2022-12-04] MEDS: PIPERACILLIN-TAZOBACTAM 3.375 GM in SODIUM CHLORIDE 0.9% 100 ML IVPB SCH ×3 (00:14→16:15)
[2022-12-04] MEDS: SODIUM CHLORIDE 0.9% 1,000 ML IV SCH (08:12)
[2022-12-04] MEDS: prednisoLONE ACETATE 1% OPHTH DROPS 5 ML BTL BOTH EYES SCH ×4 (08:13→22:27)
[2022-12-04] MEDS: METOPROLOL TARTRATE 25 MG TAB PO SCH ×2 (08:13→22:26)
[2022-12-04] MEDS: MOXIFLOXACIN HCL 0.5% DROPS 3 ML BTL BOTH EYES SCH ×4 (08:14→22:26)
[2022-12-04] MEDS: PANTOPRAZOLE 40 MG/10 ML VIAL IVP SCH ×2 (08:14→22:26)
[2022-12-04] MEDS: PRAVASTATIN SODIUM 40 MG TAB PO SCH (08:14)
[2022-12-04] MEDS ORDERED: ENOXAPARIN 30 MG/0.3 ML SYRINGE SQ SCH (09:00)
[2022-12-04] MEDS: ALBUTEROL NEBULIZED 2.5 MG/3 ML INHALATION SCH ×4 (09:20→21:35)
[2022-12-04 11:21] LABS: Basophils # (A) 0.03 X 10*3/uL (0.00-0.10); Basophils % (A) 0.2 %; Eosinophils # (A) 0.12 X 10*3/uL (0.04-0.35); Eosinophils % (A) 0.8 %; HCT 23.5 % (37.2-46.3); HGB 7.7 d/dL (12.0-15.0); Lymphocytes # (A) 0.75 X 10*3/uL (0.90-5.00); Lymphocytes % (A) 5.3 %; MCH 29.8 pg (27.0-32.0); MCHC 32.8 d/dL (32.0-37.0); MCV 91.1 FL (80.0-97.0); Mean Platelet Volume 11.8 FL (9.5-12.2); Monocytes # (A) 1.49 X 10*3/uL (0.20-1.00); Monocytes % (A) 10.4 %; NRBC Per 100 WBC 0 X 10*3/uL (0.00-0.01); Neutrophils # (A) 11.75 X 10*3/uL (1.80-7.70); Neutrophils % (A) 82.5 %; Platelet Count 262 X 10*3/uL (140-440); RBC 2.58 X 10*6/uL (4.10-5.20); RDW 14.9 % (11.5-14.5); WBC 14.26 X 10*3/uL (4.50-10.00)
[2022-12-04 11:39] LABS: Blood Urea Nitrogen 51.2 mg/dL (9.0-27.0); Calcium 8.5 mg/dL (8.7-10.3); Chloride 106 mmol/L (96-109); Glucose 117 mg/dL (70-110); Potassium 4.8 mmol/L (3.5-5.5); Sodium 133 mmol/L (135-145)
--- NOTE | 2022-12-04 16:19 | P.PN ---
Subjective Progress Note Date: 12/04/22 CHIEF COMPLAINT: Strangulated rectal prolapse HISTORY OF PRESENT ILLNESS: Postoperative day #4 status post exploratory laparotomy, reduction of rectal prolapse, rectosigmoid resection and and colostomy. Epidural Lima catheter discontinued yesterday. Patient reports her pain is controlled. She reports decrease in nausea. No vomiting. Ostomy with serosanguineous output, no stool. YUMIKO drain with 90 mL serosanguineous output. Patient did receive a unit of blood. hemoglobin did go up from 6.8-8.5 WBC is down from 20-17. PHYSICAL EXAM: VITAL SIGNS: Reviewed. GENERAL: Well-developed in no acute distress. HEENT: No sclera icterus. Extraocular movements grossly intact. Moist buccal mucosa. Head is atraumatic, normocephalic. ABDOMEN: Soft. Nondistended. Ostomy with serosanguinous output. Stoma large beefy red. Incision clean dry and intact. small amount of serous drainage lower dressing NEUROLOGIC: Alert and oriented. Cranial nerves II through XII grossly intact. ASSESSMENT: 1. Strangulated rectal prolapse status post exploratory laparotomy, reduction of rectal prolapse, rectosigmoid resection and and colostomy PLAN: -Continue clear liquids -Continue pain management -Encouraged patient to increase activity level -Encourage patient to use incentive spirometer -Continue antibiotics -Continue to work with PT OT -DVT prophylaxis Lovenox Physician Social Organization Professor note has been reviewed by physician. Signing provider agrees with the documented findings, assessment, and plan of care. Objective - Vital Signs Vital signs: Vital Signs Temp 97.9 F 12/04/22 13:34 Pulse 64 12/04/22 13:36 Resp 14 12/04/22 13:34 BP 162/84 12/04/22 13:34 Pulse Ox 97 12/04/22 13:34 FiO2 Intake & Output 12/03/22 12/04/22 12/04/22 18:59 06:59 18:59 Intake Total 1185 Output Total 80 90 0 Balance 1105 -90 0 Intake: Intake, IV Titration 400 Amount Piperacillin-Tazobactam 3 100 .375 gm In Sodium Chloride 0.9% 100 ml @ 25 mls/hr IVPB Q8HR [facility] Rx# :[id number] Sodium Chloride 0.9% 1, 300 000 ml @ 75 mls/hr IV . [id number] [facility] Rx#:[id number] Oral 475 Blood Product 310 Rc As-1 Unit 310 [id number] Output: Drainage 80 90 0 Abdomen 80 90 0 Other: Voiding Method Indwelling Catheter Bedside Commode # Voids 2 - Labs CBC & Chem 7: 12/04/22 06:20 12/04/22 06:20 Labs: Abnormal Lab Results - Last 24 Hours (Table) 12/03/22 12/03/22 12/04/22 Range/Units 12:01 21:16 06:20 WBC 17.0 H (3.8-10.6) k/uL RBC 2.76 L (3.80-5.40) m/uL Hgb 8.5 L D (11.4-16.0) gm/dL Hct 25.7 L (34.0-46.0) % RDW (11.5-14.5) % Neutrophils # 14.7 H (1.3-7.7) k/uL Lymphocytes # 0.8 L (1.0-4.8) k/uL Monocytes # 1.2 H (0-1.0) k/uL Sodium (135-145) mmol/L Carbon Dioxide (21.6-31.8) mmol/L BUN (9.0-27.0) mg/dL Est GFR (CKD-EPI) (>=60) BUN/Creatinine Ratio (12.00-20.00) Ratio Glucose (70-110) mg/dL Calcium (8.7-10.3) mg/dL C-Reactive Protein (0.00-0.80) mg/dL Procalcitonin 0.57 H (0.02-0.09) ng/mL Crossmatch See Detail 12/04/22 12/04/22 Range/Units 06:20 06:20 WBC 14.26 H (3.8-10.6) k/uL RBC 2.58 L (3.80-5.40) m/uL Hgb 7.7 L (11.4-16.0) gm/dL Hct 23.5 L (34.0-46.0) % RDW 14.9 H (11.5-14.5) % Neutrophils # 11.75 H (1.3-7.7) k/uL Lymphocytes # 0.75 L (1.0-4.8) k/uL Monocytes # 1.49 H (0-1.0) k/uL Sodium 133 L (135-145) mmol/L Carbon Dioxide 19.0 L (21.6-31.8) mmol/L BUN 51.2 H (9.0-27.0) mg/dL Est GFR (CKD-EPI) 58 L (>=60) BUN/Creatinine Ratio 51.20 H (12.00-20.00) Ratio Glucose 117 H (70-110) mg/dL Calcium 8.5 L (8.7-10.3) mg/dL C-Reactive Protein 4.00 H (0.00-0.80) mg/dL Procalcitonin (0.02-0.09) ng/mL Crossmatch Microbiology - Last 24 Hours (Table) 11/30/22 12:15 Blood Culture - Preliminary Blood 11/30/22 12:25 Blood Culture - Preliminary Blood
--- NOTE | 2022-12-04 16:53 | CDI ---
Documentation Clarification Form Date: 12/04/2022 04:23:00 PM From: Radha Prado RN, CCDS Admit Date: 11/30/2022 12:44:00 PM Patient Name: Theresa Mendoza Visit Number: [id number] Discharge Date: ATTENTION: The Clinical Documentation Specialists (CDI) and [facility] Coding Staff appreciate your assistance in clarifying documentation. Please respond to the clarification below the line at the bottom and electronically sign. The CDI & [facility] Coding staff will review the response and follow-up if needed. Please note: Queries are made part of the Legal Health Record. If you have any questions, please contact the author of this message via ITS. Dr. Sowmya Stacy Relative Hypotension is documented in the ongoing progress note starting on 12/02/2022. Additional clarification regarding this diagnosis is requested. History/Risk Factors: Hyperlipidemia, Hypertension, bladder prolapse Clinical Indicators: 77-year-old female acute on chronic large rectal prolapse. Status post expiratory laparotomy, reduction of prolapse and sigmoid resection and end colostomy on 11/30/2022. 12/02 Progress notes: Avoid all blood pressure medications. 12/02 (13:46) VS 84/52 74 19 97.4 97% 1/L NC, (19:30 VS: 92/55 74 18 99.4 96% 3/L NC 12/03 (07:28) VS: 90/56 72 17 97.7 92% R 12/02 HGB 8.9, HCT 27.0 12/03 HGB 6.8, 8.5, HCT 21.6, 25.7 12/04 HGB 7.7 HCT 23.5 Treatment: Avoid all Blood pressure medications with blood pressure less than 100 12/02 Repeat Labs 12/03 Transfuse 1 Unit PRBS Can the hypotension be further specified? [ ] Drug Induced Hypotension [ ] Hypotension is not clinically significant [ ] Other Condition, please specify [ ] Unable to determine (Template Last Revised: May 2020) Hypotension is not clinically significant MTDD
--- NOTE | 2022-12-04 22:08 | P.PN ---
Subjective Progress Note Date: 12/04/22 Principal diagnosis: leukocytosis Patient is a 77-year-old female with a past medical history significant for hypertension hyperlipidemia COVID-19 bladder prolapse and UTI presenting to the hospital on 11/30/2022 for evaluation of rectal bleeding, the patient is status post laparotomy with rectosigmoid resection and end colostomy noticed to have worsening of the white count prompting this infectious disease consultation. On today's evaluation that is 12/04/2022, the patient is afebrile, the patient is breathing comfortably on room air, the patient denies chest pain shortness of breath did have occasional dry cough , The Patient denies nausea vomiting, abdominal pain has decreased in intensity no output in the colostomy bag. Patient white count is down to 14.26 creatinine is 1.0 CRP is 4 procalcitonin 0.57 blood cultures are pending Objective - Vital Signs Vital signs: Vital Signs Temp 98.4 F 12/04/22 07:12 Pulse 64 12/04/22 09:35 Resp 18 12/04/22 07:12 BP 134/69 12/04/22 07:12 Pulse Ox 99 12/04/22 07:12 FiO2 Intake & Output 12/03/22 12/04/22 12/04/22 18:59 06:59 18:59 Intake Total 1185 Output Total 80 90 0 Balance 1105 -90 0 Intake: Intake, IV Titration 400 Amount Piperacillin-Tazobactam 3 100 .375 gm In Sodium Chloride 0.9% 100 ml @ 25 mls/hr IVPB Q8HR [facility] Rx# :[id number] Sodium Chloride 0.9% 1, 300 000 ml @ 75 mls/hr IV . [id number] [facility] Rx#:[id number] Oral 475 Blood Product 310 Rc As-1 Unit 310 [id number] Output: Drainage 80 90 0 Abdomen 80 90 0 Other: Voiding Method Indwelling Catheter Bedside Commode # Voids 2 - Exam GENERAL DESCRIPTION: Elderly female lying in bed in no distress RESPIRATORY SYSTEM: Unlabored breathing , decreased breath sounds at bases HEART: S1 S2 regular rate and rhythm ,no loud murmurs ABDOMEN: Soft , no tenderness EXTREMITIES: No edema feet - Labs CBC & Chem 7: 12/04/22 06:20 12/04/22 06:20 Labs: Abnormal Lab Results - Last 24 Hours (Table) 12/03/22 12/03/22 12/03/22 Range/Units 06:14 06:14 12:01 WBC 20.05 H (4.50-10.00) X 10*3/uL RBC 2.33 L (4.10-5.20) X 10*6/uL Hgb 6.8 H* (12.0-15.0) d/dL Hct 21.6 L (37.2-46.3) % MCHC 31.5 L (32.0-37.0) d/dL RDW 15.2 H (11.5-14.5) % Neutrophils # 17.08 H (1.80-7.70) X 10*3/uL Lymphocytes # 0.85 L (0.90-5.00) X 10*3/uL Monocytes # 1.89 H (0.20-1.00) X 10*3/uL Eosinophils # 0.02 L (0.04-0.35) X 10*3/uL Sodium 131 L (135-145) mmol/L Carbon Dioxide 20.1 L (21.6-31.8) mmol/L BUN 77.0 H (9.0-27.0) mg/dL Est GFR (CKD-EPI) 43 L (>=60) BUN/Creatinine Ratio 59.23 H (12.00-20.00) Ratio Glucose 133 H (70-110) mg/dL Calcium 8.1 L (8.7-10.3) mg/dL Crossmatch See Detail 12/03/22 Range/Units 21:16 WBC 17.0 H (4.50-10.00) X 10*3/uL RBC 2.76 L (4.10-5.20) X 10*6/uL Hgb 8.5 L D (12.0-15.0) d/dL Hct 25.7 L (37.2-46.3) % MCHC (32.0-37.0) d/dL RDW (11.5-14.5) % Neutrophils # 14.7 H (1.80-7.70) X 10*3/uL Lymphocytes # 0.8 L (0.90-5.00) X 10*3/uL Monocytes # 1.2 H (0.20-1.00) X 10*3/uL Eosinophils # (0.04-0.35) X 10*3/uL Sodium (135-145) mmol/L Carbon Dioxide (21.6-31.8) mmol/L BUN (9.0-27.0) mg/dL Est GFR (CKD-EPI) (>=60) BUN/Creatinine Ratio (12.00-20.00) Ratio Glucose (70-110) mg/dL Calcium (8.7-10.3) mg/dL Crossmatch Microbiology - Last 24 Hours (Table) 11/30/22 12:15 Blood Culture - Preliminary Blood 11/30/22 12:25 Blood Culture - Preliminary Blood Assessment and Plan Plan: 1patient with elevated white count in this patient presented to hospital with rectal bleeding and this patient is status post laparotomy with the rectosigmoid resection and diverting colostomy possible reactive for surgery versus abdominal source with the patient also noted to have a drop in hemoglobin requiring a blood transfusion. 2blood cultures are currently pending inflammatory markers are elevated. 3patient white count is trending down currently patient on Zosyn while waiting for the culture to finalize and monitor clinical course closely Dictation was produced using [employer] dictation software. please excuse any grammatical, word or spelling errors.
--- NOTE | 2022-12-04 22:34 | PN ---
PROGRESS NOTE DATE OF SERVICE: 12/04/2022 SUBJECTIVE: This is a 77-year-old woman, who was admitted with acute on chronic large rectal prolapse, had exploratory laparotomy. The patient had elevated WBC. The possibility of abdominal source of infection is being continued at this time. Cultures are negative so far. OBJECTIVE: VITAL SIGNS: Pulse is 64, blood pressure 130/62, respirations 16. CHEST: Clear to auscultation. CARDIOVASCULAR: S1, S2. ABDOMEN: Soft. NERVOUS SYSTEM: Nonfocal. LABORATORY DATA: Hemoglobin is 7.7. Rest of the labs are noted. Chest x-ray reviewed personally. ASSESSMENT: 1. Acute on chronic large rectal prolapse, status post exploratory laparotomy, reduction of prolapse, sigmoid resection, and colostomy. 2. Relative hypotension. 3. Elevated WBC, possibly reactive to rule out intraabdominal source of infection. 4. Anemia multifactorial as expected. 5. Chronic constipation. 6. History of bladder prolapse. RECOMMENDATIONS: Recommend to continue current medications, continue symptomatic treatment. Otherwise, I would recommend to continue the antibiotics. Continue rest of medications. Repeat labs. Incentive spirometry. Procalcitonin is elevated at 0.57. Further recommendations to follow. Closely follow with Surgery. MMODL / IJN: [id number] /
[2022-12-05] MEDS: PIPERACILLIN-TAZOBACTAM 3.375 GM in SODIUM CHLORIDE 0.9% 100 ML IVPB SCH ×4 (00:21→23:19)
[2022-12-05] MEDS: SODIUM CHLORIDE 0.9% 1,000 ML IV SCH ×2 (00:45→05:38)
[2022-12-05] MEDS: HYDROmorphone 1 MG/ML 1 ML SYRINGE IVP PRN (05:42)
[2022-12-05] MEDS: ALBUTEROL NEBULIZED 2.5 MG/3 ML INHALATION SCH ×4 (08:05→20:58)
[2022-12-05] MEDS: PRAVASTATIN SODIUM 40 MG TAB PO SCH (10:37)
[2022-12-05] MEDS: METOPROLOL TARTRATE 25 MG TAB PO SCH ×2 (10:37→20:58)
[2022-12-05] MEDS: ENOXAPARIN 40 MG/0.4 ML SYRINGE SQ SCH (10:38)
[2022-12-05] MEDS: PANTOPRAZOLE 40 MG/10 ML VIAL IVP SCH ×2 (10:38→20:59)
[2022-12-05] MEDS: prednisoLONE ACETATE 1% OPHTH DROPS 5 ML BTL BOTH EYES SCH ×4 (10:41→20:59)
[2022-12-05] MEDS: MOXIFLOXACIN HCL 0.5% DROPS 3 ML BTL BOTH EYES SCH ×4 (10:41→20:59)
[2022-12-05 10:50] LABS: Basophils # (A) 0.02 X 10*3/uL (0.00-0.10); Basophils % (A) 0.2 %; Eosinophils # (A) 0.17 X 10*3/uL (0.04-0.35); Eosinophils % (A) 1.4 %; HGB 8.1 d/dL (12.0-15.0); Lymphocytes % (A) 5.8 %; MCH 30.2 pg (27.0-32.0); MCHC 32.4 d/dL (32.0-37.0); MCV 93.3 FL (80.0-97.0); Mean Platelet Volume 11.3 FL (9.5-12.2); Monocytes # (A) 1.57 X 10*3/uL (0.20-1.00); NRBC Per 100 WBC 0 X 10*3/uL (0.00-0.01); Neutrophils # (A) 9.47 X 10*3/uL (1.80-7.70); Neutrophils % (A) 78.4 %; Platelet Count 285 X 10*3/uL (140-440); RBC 2.68 X 10*6/uL (4.10-5.20); RDW 15.1 % (11.5-14.5); WBC 12.08 X 10*3/uL (4.50-10.00)
[2022-12-05 11:04] LABS: BUN/Creat Ratio 40.67 Ratio (12.00-20.00); Blood Urea Nitrogen 24.4 mg/dL (9.0-27.0); Calcium 8.4 mg/dL (8.7-10.3); Carbon Dioxide 19.5 mmol/L (21.6-31.8); Chloride 109 mmol/L (96-109); Glucose 98 mg/dL (70-110); Potassium 4.8 mmol/L (3.5-5.5); Sodium 138 mmol/L (135-145)
--- NOTE | 2022-12-05 13:09 | P.PN ---
Subjective Progress Note Date: 12/05/22 Principal diagnosis: leukocytosis Patient is a 77-year-old female with a past medical history significant for hypertension hyperlipidemia COVID-19 bladder prolapse and UTI presenting to the hospital on 11/30/2022 for evaluation of rectal bleeding, the patient is status post laparotomy with rectosigmoid resection and end colostomy noticed to have worsening of the white count prompting this infectious disease consultation. On today's evaluation that is 12/05/2022, the patient continues to be afebrile , the patient is breathing comfortably on room air , the patient denies nausea vomiting, constipation abdominal pain has decreased in intensity no output in the colostomy Patient white count is down to 12.08 creatinine is 0.6, CRP is 4 procalcitonin 0.57 blood cultures are pending Objective - Vital Signs Vital signs: Vital Signs Temp 97.6 F 12/05/22 08:00 Pulse 68 12/05/22 11:58 Resp 12 12/05/22 08:00 BP 164/77 12/05/22 08:00 Pulse Ox 95 12/05/22 08:05 FiO2 Intake & Output 12/04/22 12/05/22 12/05/22 18:59 06:59 18:59 Output Total 100 160 Balance -100 -160 Output: Drainage 100 160 Abdomen 100 160 Other: Voiding Method Bedside Commode # Voids 4 2 - Exam GENERAL DESCRIPTION: Elderly female lying in bed in no distress RESPIRATORY SYSTEM: Unlabored breathing , decreased breath sounds at bases HEART: S1 S2 regular rate and rhythm ,no loud murmurs ABDOMEN: Soft , no tenderness EXTREMITIES: No edema feet - Labs CBC & Chem 7: 12/05/22 05:31 12/05/22 05:31 Labs: Abnormal Lab Results - Last 24 Hours (Table) 12/05/22 12/05/22 Range/Units 05:31 05:31 WBC 12.08 H (4.50-10.00) X 10*3/uL RBC 2.68 L (4.10-5.20) X 10*6/uL Hgb 8.1 L (12.0-15.0) d/dL Hct 25.0 L (37.2-46.3) % RDW 15.1 H (11.5-14.5) % Neutrophils # 9.47 H (1.80-7.70) X 10*3/uL Lymphocytes # 0.70 L (0.90-5.00) X 10*3/uL Monocytes # 1.57 H (0.20-1.00) X 10*3/uL Carbon Dioxide 19.5 L (21.6-31.8) mmol/L BUN/Creatinine Ratio 40.67 H (12.00-20.00) Ratio Calcium 8.4 L (8.7-10.3) mg/dL Microbiology - Last 24 Hours (Table) 12/03/22 21:16 Blood Culture - Preliminary Blood Assessment and Plan (1) Leukocytosis Current Visit: Yes Status: Acute Code(s): D72.829 - ELEVATED WHITE BLOOD CELL COUNT, UNSPECIFIED SNOMED Code(s): 675535792 Plan: 1patient with elevated white count in this patient presented to hospital with rectal bleeding and this patient is status post laparotomy with the rectosigmoid resection and diverting colostomy possible reactive for surgery versus abdominal source with the patient also noted to have a drop in hemoglobin requiring a blood transfusion. 2blood cultures are currently pending inflammatory markers are elevated. 3patient white count is trending down, patient to continue with Zosyn while waiting for the culture to finalize and hopefully finishing therapy with oral antibiotic discussed with METHODS SPECIALIST ENGINEER for admitting team Dictation was produced using [employer] dictation software. please excuse any grammatical, word or spelling errors. Time with Patient: Less than 30
[2022-12-05 14:02] VITALS: BMI 25.5
--- NOTE | 2022-12-05 14:10 | PN ---
PROGRESS NOTE DATE OF SERVICE: 12/04/2022 SUBJECTIVE: This is a 77-year-old woman who was admitted with rectal prolapse and surgery is being closely monitored. White count is elevated, which is improving. No chest pain, no palpitations. Empiric antibiotics. Cultures are negative. OBJECTIVE: VITAL SIGNS: Pulse is 63. blood pressure 160/70, and respirations 20. CHEST: Few scattered rhonchi. ABDOMEN: Soft status post surgery. NERVOUS SYSTEM: No focal deficits. LABORATORY DATA: Reviewed. ASSESSMENT: 1. Acute on chronic large rectal prolapse, status post exploratory laparotomy and resection of the prolapse, sigmoid resection, colostomy. 2. Relative hypotension. 3. Elevated WBC, possibly reactive, possible intraabdominal source of infection, on empiric IV antibiotics. 4. Anemia, multifactorial as expected. 5. Chronic constipation. 6. History of bladder prolapse. RECOMMENDATIONS: Recommended to continue current management and symptomatic treatment otherwise at this time. Repeat labs. Continue the antibiotics. Keep following the cultures. Guarded prognosis. Further recommendations to follow. Possible discharge in the next 24 hours. MMODL / IJN: [id number] /
--- NOTE | 2022-12-05 15:06 | P.PN ---
Subjective Progress Note Date: 12/05/22 CHIEF COMPLAINT: Strangulated rectal prolapse HISTORY OF PRESENT ILLNESS: Postoperative day #5 status post exploratory laparotomy, reduction of rectal prolapse, rectosigmoid resection and and colostomy. Patient reports her pain is controlled. She reports decrease in nausea. No vomiting. Ostomy with serosanguineous output with air, no stool. YUMIKO drain with 160 mL serosanguineous output. Afebrile. WBC 14 down to 12 and should be 8.1 platelets 285 PHYSICAL EXAM: VITAL SIGNS: Reviewed. GENERAL: Well-developed in no acute distress. HEENT: No sclera icterus. Extraocular movements grossly intact. Moist buccal mucosa. Head is atraumatic, normocephalic. ABDOMEN: Soft. Nondistended. Ostomy with serosanguinous output with air. Stoma large beefy red. Incision clean dry and intact. NEUROLOGIC: Alert and oriented. Cranial nerves II through XII grossly intact. ASSESSMENT: 1. Strangulated rectal prolapse status post exploratory laparotomy, reduction of rectal prolapse, rectosigmoid resection and and colostomy PLAN: -Advance diet to full liquids -Add [place] for oral pain medication -Encouraged patient to increase activity level -Encourage patient to use incentive spirometer -Continue antibiotics -Continue to work with PT OT -Patient may need ECF at discharge -DVT prophylaxis [place] Physician Supervisor [place] note has been reviewed by physician. Signing provider agrees with the documented findings, assessment, and plan of care. Objective - Vital Signs Vital signs: Vital Signs Temp 97.7 F 12/05/22 13:48 Pulse 98 12/05/22 13:48 Resp 18 12/05/22 13:48 BP 164/77 12/05/22 08:00 Pulse Ox 95 12/05/22 08:05 FiO2 Intake & Output 12/04/22 12/05/22 12/05/22 18:59 06:59 18:59 Output Total 100 160 Balance -100 -160 Weight 59.421 kg Output: Drainage 100 160 Abdomen 100 160 Other: Voiding Method Bedside Commode # Voids 4 2 - Labs CBC & Chem 7: 12/05/22 05:31 12/05/22 05:31 Labs: Abnormal Lab Results - Last 24 Hours (Table) 12/05/22 12/05/22 Range/Units 05:31 05:31 WBC 12.08 H (4.50-10.00) X 10*3/uL RBC 2.68 L (4.10-5.20) X 10*6/uL Hgb 8.1 L (12.0-15.0) d/dL Hct 25.0 L (37.2-46.3) % RDW 15.1 H (11.5-14.5) % Neutrophils # 9.47 H (1.80-7.70) X 10*3/uL Lymphocytes # 0.70 L (0.90-5.00) X 10*3/uL Monocytes # 1.57 H (0.20-1.00) X 10*3/uL Carbon Dioxide 19.5 L (21.6-31.8) mmol/L BUN/Creatinine Ratio 40.67 H (12.00-20.00) Ratio Calcium 8.4 L (8.7-10.3) mg/dL Microbiology - Last 24 Hours (Table) 12/03/22 21:16 Blood Culture - Preliminary Blood
[2022-12-05] MEDS: HYDROcodone/APAP 5-325MG 1 EACH TAB PO PRN ×2 (16:34→20:58)
[2022-12-06] MEDS: SODIUM CHLORIDE 0.9% 1,000 ML IV SCH ×3 (01:57→23:48)
[2022-12-06] MEDS: HYDROcodone/APAP 5-325MG 1 EACH TAB PO PRN ×3 (08:01→23:52)
[2022-12-06] MEDS: ALBUTEROL NEBULIZED 2.5 MG/3 ML INHALATION SCH ×4 (08:46→20:34)
[2022-12-06] MEDS: PRAVASTATIN SODIUM 40 MG TAB PO SCH (09:20)
[2022-12-06] MEDS: PANTOPRAZOLE 40 MG/10 ML VIAL IVP SCH ×2 (09:21→21:27)
[2022-12-06] MEDS: ENOXAPARIN 40 MG/0.4 ML SYRINGE SQ SCH (09:21)
[2022-12-06] MEDS: METOPROLOL TARTRATE 25 MG TAB PO SCH ×2 (09:21→21:27)
[2022-12-06] MEDS: PIPERACILLIN-TAZOBACTAM 3.375 GM in SODIUM CHLORIDE 0.9% 100 ML IVPB SCH ×3 (09:22→23:53)
[2022-12-06] MEDS: prednisoLONE ACETATE 1% OPHTH DROPS 5 ML BTL BOTH EYES SCH ×4 (09:27→21:28)
[2022-12-06] MEDS: MOXIFLOXACIN HCL 0.5% DROPS 3 ML BTL BOTH EYES SCH ×4 (09:28→21:28)
[2022-12-06] MEDS: THIAMINE 100 MG TAB PO SCH (12:58)
[2022-12-06] MEDS: FOLIC ACID 1 MG TAB PO SCH (12:59)
[2022-12-06] MEDS: MULTIVITAMINS, THERA 1 EACH TAB PO SCH (12:59)
--- NOTE | 2022-12-06 13:08 | P.PN ---
Subjective Progress Note Date: 12/06/22 Principal diagnosis: leukocytosis Patient is a 77-year-old female with a past medical history significant for hypertension hyperlipidemia COVID-19 bladder prolapse and UTI presenting to the hospital on 11/30/2022 for evaluation of rectal bleeding, the patient is status post laparotomy with rectosigmoid resection and end colostomy noticed to have worsening of the white count prompting this infectious disease consultation. On today's evaluation that is 12/06/2022, the patient denies any fever or any chills , the patient is breathing comfortably on room air , the patient denies chest pain shortness of breath or cough, no nausea or vomiting, no abdominal pain or diarrhea , the patient did have output in the colostomy Patient white count is down to 12.08 creatinine is 0.6 as of yesterday no blood draw today, CRP is 4 procalcitonin 0.57 blood cultures are so far negative Objective - Vital Signs Vital signs: Vital Signs Temp 98.1 F 12/06/22 08:00 Pulse 71 12/06/22 09:23 Resp 19 12/06/22 08:00 BP 152/76 12/06/22 09:23 Pulse Ox 96 12/06/22 09:23 FiO2 Intake & Output 12/05/22 12/06/22 12/06/22 18:59 06:59 18:59 Output Total 100 160 90 Balance -100 -160 -90 Weight 59.421 kg Output: Drainage 100 160 90 Abdomen 100 160 90 Other: Voiding Method Bedside Commode Bedside Commode # Voids 3 2 - Exam GENERAL DESCRIPTION: Elderly female lying in bed in no distress RESPIRATORY SYSTEM: Unlabored breathing , decreased breath sounds at bases HEART: S1 S2 regular rate and rhythm ,no loud murmurs ABDOMEN: Soft , no tenderness EXTREMITIES: No edema feet - Labs CBC & Chem 7: 12/05/22 05:31 12/05/22 05:31 Labs: Microbiology - Last 24 Hours (Table) 12/03/22 21:16 Blood Culture - Preliminary Blood 11/30/22 12:15 Blood Culture - Final Blood 11/30/22 12:25 Blood Culture - Final Blood Assessment and Plan (1) Leukocytosis Current Visit: Yes Status: Acute Code(s): D72.829 - ELEVATED WHITE BLOOD CELL COUNT, UNSPECIFIED SNOMED Code(s): 581104768 Plan: 1patient with elevated white count in this patient presented to hospital with rectal bleeding and this patient is status post laparotomy with the rectosigmoid resection and diverting colostomy possible reactive for surgery versus abdominal source with the patient also noted to have a drop in hemoglobin requiring a blood transfusion. 2blood cultures are currently pending inflammatory markers are elevated. 3patient white count is trending down as of yesterday the patient had clinical improvement, patient to continue with Zosyn while inpatient however finishing therapy with a short course of oral Augmentin on discharge, discussed with SENIOR ADVISOR for admitting team Dictation was produced using [employer] dictation software. please excuse any grammatical, word or spelling errors. Time with Patient: Less than 30
[2022-12-06 13:15] LABS: Basophils # (A) 0.02 X 10*3/uL (0.00-0.10); Basophils % (A) 0.2 %; Eosinophils # (A) 0.24 X 10*3/uL (0.04-0.35); HCT 22.9 % (37.2-46.3); HGB 7.5 d/dL (12.0-15.0); Lymphocytes # (A) 0.88 X 10*3/uL (0.90-5.00); Lymphocytes % (A) 7.5 %; MCH 30.1 pg (27.0-32.0); MCHC 32.8 d/dL (32.0-37.0); Mean Platelet Volume 11.3 FL (9.5-12.2); Monocytes # (A) 1.77 X 10*3/uL (0.20-1.00); NRBC Per 100 WBC 0 X 10*3/uL (0.00-0.01); Neutrophils # (A) 8.67 X 10*3/uL (1.80-7.70); Neutrophils % (A) 73.4 %; Platelet Count 315 X 10*3/uL (140-440); RBC 2.49 X 10*6/uL (4.10-5.20); WBC 11.81 X 10*3/uL (4.50-10.00)
[2022-12-06 14:19] LABS: Blood Urea Nitrogen 13.5 mg/dL (9.0-27.0); Calcium 8.2 mg/dL (8.7-10.3); Carbon Dioxide 20.6 mmol/L (21.6-31.8); Chloride 107 mmol/L (96-109); Glucose 97 mg/dL (70-110); Potassium 3.9 mmol/L (3.5-5.5); Sodium 137 mmol/L (135-145)
--- NOTE | 2022-12-06 16:08 | P.PN ---
Subjective Progress Note Date: 12/06/22 CHIEF COMPLAINT: Strangulated rectal prolapse HISTORY OF PRESENT ILLNESS: Postoperative day #6 status post exploratory laparotomy, reduction of rectal prolapse, rectosigmoid resection and and colostomy. Patient did report abdominal pain earlier today this has improved. Patient is now having a small amount of stool from her ostomy and has air present. Denies any nausea or vomiting. Tolerating the full liquids. Sitting up at bedside chair. Patient has not received ostomy teaching yet. Afebrile. WBC 12 down to 11.81 Hgb 7.5 PHYSICAL EXAM: VITAL SIGNS: Reviewed. GENERAL: Well-developed in no acute distress. HEENT: No sclera icterus. Extraocular movements grossly intact. Moist buccal mucosa. Head is atraumatic, normocephalic. ABDOMEN: Soft. Nondistended. Ostomy with air and small amount of stool on stoma. Stoma large beefy red. Incision clean dry and intact. NEUROLOGIC: Alert and oriented. Cranial nerves II through XII grossly intact. ASSESSMENT: 1. Strangulated rectal prolapse status post exploratory laparotomy, reduction of rectal prolapse, rectosigmoid resection and and colostomy PLAN: -Advance diet to regular -Consult placed for ostomy teaching -Possible discharge tomorrow if patient receives ostomy teaching -Continue pain management -Encouraged patient to increase activity level -Encourage patient to use incentive spirometer -Continue antibiotics -business office manager arranging home care at discharge -DVT prophylaxis [place] Physician Sheet Manufacturing Supervisor note has been reviewed by physician. Signing provider agrees with the documented findings, assessment, and plan of care. Objective - Vital Signs Vital signs: Vital Signs Temp 98.3 F 12/06/22 12:43 Pulse 88 12/06/22 15:30 Resp 18 12/06/22 12:43 BP 164/84 12/06/22 12:43 Pulse Ox 96 12/06/22 09:23 FiO2 Intake & Output 12/05/22 12/06/22 12/06/22 18:59 06:59 18:59 Output Total 100 160 90 Balance -100 -160 -90 Weight 59.421 kg 59.421 kg Output: Drainage 100 160 90 Abdomen 100 160 90 Other: Voiding Method Bedside Commode Bedside Commode # Voids 3 2 - Labs CBC & Chem 7: 12/06/22 06:08 12/06/22 06:08 Labs: Abnormal Lab Results - Last 24 Hours (Table) 12/06/22 12/06/22 Range/Units 06:08 06:08 WBC 11.81 H (4.50-10.00) X 10*3/uL RBC 2.49 L (4.10-5.20) X 10*6/uL Hgb 7.5 L (12.0-15.0) d/dL Hct 22.9 L (37.2-46.3) % RDW 15.0 H (11.5-14.5) % Neutrophils # 8.67 H (1.80-7.70) X 10*3/uL Lymphocytes # 0.88 L (0.90-5.00) X 10*3/uL Monocytes # 1.77 H (0.20-1.00) X 10*3/uL Carbon Dioxide 20.6 L (21.6-31.8) mmol/L BUN/Creatinine Ratio 22.50 H (12.00-20.00) Ratio Calcium 8.2 L (8.7-10.3) mg/dL Microbiology - Last 24 Hours (Table) 12/03/22 21:16 Blood Culture - Preliminary Blood 11/30/22 12:15 Blood Culture - Final Blood 11/30/22 12:25 Blood Culture - Final Blood
--- NOTE | 2022-12-06 19:28 | P.PN ---
Subjective Progress Note Date: 12/06/22 This is a 77-year-old female who was admitted with strangulated rectal prolapse status post exploratory laparotomy, reduction of rectal prolapse, recto-sigmoid resection and colostomy which Gen. surgery following. Patient does have an ostomy and was noted to have gas and very small amount of stool noted. Diet is being advanced per general surgery and awaiting ostomy education. Patient is also being followed by infectious disease and is maintained on Zosyn and will likely continue with oral Augmentin on discharge. Patient with generalized weakness although feels can go home with spouse and continue with home care. Plan is for possible home in 24 hours if patient has received ostomy education. Patient is afebrile with no reported chest pain or shortness of breath. Patient tolerating diet and needs encouragement with meals. No reported nausea or vomiting noted. Review of systems: Constitutional: No reports of fatigue, fever, or chills Cardiovascular: No reports of chest pain or palpitations Respiratory: No reports of shortness of breath or cough GI: No reports of nausea, no reports of vomiting, reports gas in the ostomy with very small amount of stool starting, did have abdominal discomfort earlier which has resolved : No reports of dysuria or retention Neurovascular: reports of generalized weakness All medications have been reviewed PHYSICAL EXAMINATION: GENERAL: The patient is alert and oriented x4, Well developed, elderly appearing female HEENT: Pupils are round and equally reacting to light. EOMI. no scleral icterus. No conjunctival pallor. Normocephalic, atraumatic. No pharyngeal erythema. No thyromegaly. CARDIOVASCULAR: S1 and S2 muffled PULMONARY: diminished breath sounds bilaterally with no wheezing or rhonchi noted. ABDOMEN: soft. Nontender on exam. non-distended, normoactive bowel sounds. No palpable organomegaly. Ostomy noted with gas and scant amount of stool MUSCULOSKELETAL: No joint swelling or deformity. EXTREMITIES: No cyanosis, clubbing, or pedal edema. NEUROLOGICAL: Gross neurological examination did not reveal any focal deficits. Diffuse weakness SKIN: No rashes. Assessment: 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, status post status post exploratory laparotomy, reduction of rectal prolapse, rectosigmoid resection and and colostomy Relative hypotension, possibly IV pain medication effect, not of significance Elevated white blood count, possibly reactive, possible intra-abdominal source of infection, maintained on empiric antibiotics Anemia, multifactorial as expected Chronic constipation history History of bladder prolapse GI prophylaxis DVT prophylaxis Full code Plan: Patient being followed by general surgery status post reduction of the prolapse with resection and end colostomy. Patient is having gas noted and scant amount of stool. Patient needs ostomy education prior to discharge and consult was placed Diet has been advanced to regular diet per surgery and tolerating with no r eported nausea or vomiting. Needs encouragement with meals as patient reports not much of an appetite Patient is empirically maintained on antibiotics with infectious disease following in the form of Zosyn and will continue on Augmentin for 10 days on discharge Will follow-up on repeat labs and replace electrolytes per protocol Encouraged increased activity as tolerated. Patient plans on going home with home care once patient has received ostomy education. Possible discharge in the next 24 hours. The impression and plan of care has been dictated by Doris Flores, nurse practitioner as directed. Dr. Regis MD I have performed a history and examination and MDM of this patient, discussed the same with the dictator, and agree with the dictator's assessment and plan as written ,documented as a scribe. Based on total visit time, I have performed more than 50% of the visit. Any additional findings or plans will be noted. Objective - Vital Signs Vital signs: Vital Signs Temp 98.3 F 12/06/22 12:43 Pulse 88 12/06/22 15:30 Resp 18 12/06/22 12:43 BP 164/84 12/06/22 12:43 Pulse Ox 96 12/06/22 09:23 FiO2 Intake & Output 12/06/22 12/06/22 12/07/22 06:59 18:59 06:59 Output Total 160 180 Balance -160 -180 Weight 59.421 kg Output: Drainage 160 180 Abdomen 160 180 Other: Voiding Method Bedside Commode Bedside Commode # Voids 2 4 # Bowel Movements 0 - Labs CBC & Chem 7: 12/06/22 06:08 12/06/22 06:08 Labs: Abnormal Lab Results - Last 24 Hours (Table) 12/06/22 12/06/22 Range/Units 06:08 06:08 WBC 11.81 H (4.50-10.00) X 10*3/uL RBC 2.49 L (4.10-5.20) X 10*6/uL Hgb 7.5 L (12.0-15.0) d/dL Hct 22.9 L (37.2-46.3) % RDW 15.0 H (11.5-14.5) % Neutrophils # 8.67 H (1.80-7.70) X 10*3/uL Lymphocytes # 0.88 L (0.90-5.00) X 10*3/uL Monocytes # 1.77 H (0.20-1.00) X 10*3/uL Carbon Dioxide 20.6 L (21.6-31.8) mmol/L BUN/Creatinine Ratio 22.50 H (12.00-20.00) Ratio Calcium 8.2 L (8.7-10.3) mg/dL Microbiology - Last 24 Hours (Table) 12/03/22 21:16 Blood Culture - Preliminary Blood 11/30/22 12:15 Blood Culture - Final Blood 11/30/22 12:25 Blood Culture - Final Blood
[2022-12-06] MEDS: amLODIPine 5 MG TAB PO SCH (21:27)
[2022-12-07] MEDS: SODIUM CHLORIDE 0.9% 1,000 ML IV SCH (04:39)
[2022-12-07] MEDS: PIPERACILLIN-TAZOBACTAM 3.375 GM in SODIUM CHLORIDE 0.9% 100 ML IVPB SCH ×2 (07:57→17:24)
[2022-12-07] MEDS: PRAVASTATIN SODIUM 40 MG TAB PO SCH (07:57)
[2022-12-07] MEDS: METOPROLOL TARTRATE 25 MG TAB PO SCH ×2 (07:57→21:11)
[2022-12-07] MEDS: ENOXAPARIN 40 MG/0.4 ML SYRINGE SQ SCH (07:57)
[2022-12-07] MEDS: prednisoLONE ACETATE 1% OPHTH DROPS 5 ML BTL BOTH EYES SCH ×4 (07:58→21:12)
[2022-12-07] MEDS: MOXIFLOXACIN HCL 0.5% DROPS 3 ML BTL BOTH EYES SCH ×4 (07:58→21:11)
--- NOTE | 2022-12-07 08:16 | P.PN ---
Progress Note - Text Progress Note Date: 12/07/22 The patient is progressing. She states she feels better today. She denies any significant abdominal pain. On exam vital signs appear stable. Abdomen soft incision is clean dry intact. Colostomy dysfunction. Status post repair of strangulate rectal prolapse patient will continue to receive supportive care.
[2022-12-07] MEDS: PANTOPRAZOLE 40 MG/10 ML VIAL IVP SCH ×2 (08:38→21:11)
[2022-12-07] MEDS: ALBUTEROL NEBULIZED 2.5 MG/3 ML INHALATION SCH ×4 (09:02→20:40)
[2022-12-07 10:20] LABS: Basophils # (A) 0.07 X 10*3/uL (0.00-0.10); Basophils % (A) 0.4 %; Eosinophils # (A) 0.36 X 10*3/uL (0.04-0.35); Eosinophils % (A) 2.2 %; HGB 8.6 d/dL (12.0-15.0); Lymphocytes # (A) 1.25 X 10*3/uL (0.90-5.00); Lymphocytes % (A) 7.7 %; MCH 30.1 pg (27.0-32.0); MCHC 31.9 d/dL (32.0-37.0); MCV 94.4 FL (80.0-97.0); Mean Platelet Volume 11.3 FL (9.5-12.2); Monocytes # (A) 1.68 X 10*3/uL (0.20-1.00); Monocytes % (A) 10.3 %; NRBC Per 100 WBC 0 X 10*3/uL (0.00-0.01); Neutrophils # (A) 12.44 X 10*3/uL (1.80-7.70); Neutrophils % (A) 76.2 %; Platelet Count 443 X 10*3/uL (140-440); RBC 2.86 X 10*6/uL (4.10-5.20); RBC Morphology Normal (Normal); WBC 16.33 X 10*3/uL (4.50-10.00)
[2022-12-07 11:27] LABS: Blood Urea Nitrogen 8.4 mg/dL (9.0-27.0); Calcium 8.5 mg/dL (8.7-10.3); Carbon Dioxide 20.2 mmol/L (21.6-31.8); Chloride 104 mmol/L (96-109); Glucose 98 mg/dL (70-110); Magnesium 1.9 mg/dL (1.5-2.4); Potassium 3.6 mmol/L (3.5-5.5); Sodium 135 mmol/L (135-145)
[2022-12-07] MEDS: FOLIC ACID 1 MG TAB PO SCH (13:41)
[2022-12-07] MEDS: THIAMINE 100 MG TAB PO SCH (13:41)
[2022-12-07] MEDS: amLODIPine 5 MG TAB PO SCH ×2 (13:42→21:11)
[2022-12-07] MEDS: MULTIVITAMINS, THERA 1 EACH TAB PO SCH (13:42)
[2022-12-07] MEDS: HYDROmorphone 1 MG/ML 1 ML SYRINGE IVP PRN (14:13)
--- NOTE | 2022-12-07 16:12 | P.PN ---
Subjective Progress Note Date: 12/07/22 This is a 77-year-old female who was admitted with strangulated rectal prolapse status post exploratory laparotomy, reduction of rectal prolapse, recto-sigmoid resection and colostomy which Gen. surgery following. Patient does have an ostomy and was noted to have gas and very small amount of stool noted. Diet is being advanced per general surgery and awaiting ostomy education. Patient is also being followed by infectious disease and is maintained on Zosyn and will likely continue with oral Augmentin on discharge. Patient with generalized weakness although feels can go home with spouse and continue with home care. Plan is for possible home in 24 hours if patient has received ostomy education. Patient is afebrile with no reported chest pain or shortness of breath. Patient tolerating diet and needs encouragement with meals. No reported nausea or vomiting noted. 12/07/2022 Patient is seen in follow-up today continues report some abdominal discomfort with position changes. Discussed avoiding IV pain medications if possible. Patient is having stool noted in the ostomy and has yet to receive education regarding care this patient will be going home with spouse. Consult was placed although unavailable until Friday. Patient continues with generalized weakness and encouraged increased activity as tolerated. Patient is afebrile with no reported chest pain or shortness of breath. Patient maintained on antibiotics and will continue short course of oral Augmentin on discharge. Patient is afebrile although mildly concerned as patient white count is slightly elevated. Patient to continue on IV antibiotics with infectious disease following and will obtain a chest x-ray. Patient denies any burning or pain or frequency with urination. Patient did have abdominal pain will obtain urinalysis. Review of systems: Constitutional: No reports of fatigue, fever, or chills Cardiovascular: No reports of chest pain or palpitations Respiratory: No reports of shortness of breath or cough GI: No reports of nausea, no reports of vomiting, reports gas in the ostomy with stool starting, did have abdominal discomfort earlier : No reports of dysuria or retention Neurovascular: reports of generalized weakness All medications have been reviewed PHYSICAL EXAMINATION: GENERAL: The patient is alert and oriented x4, Well developed, elderly appearing female HEENT: Pupils are round and equally reacting to light. EOMI. no scleral icterus. No conjunctival pallor. Normocephalic, atraumatic. No pharyngeal erythema. No thyromegaly. CARDIOVASCULAR: S1 and S2 muffled PULMONARY: diminished breath sounds bilaterally with no wheezing or rhonchi noted. ABDOMEN: soft. Nontender on exam. non-distended, normoactive bowel sounds. No palpable organomegaly. Ostomy noted with gas and stool MUSCULOSKELETAL: No joint swelling or deformity. EXTREMITIES: No cyanosis, clubbing, or pedal edema. NEUROLOGICAL: Gross neurological examination did not reveal any focal deficits. Diffuse weakness SKIN: No rashes. Assessment: 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, status post status post exploratory laparotomy, reduction of rectal prolapse, rectosigmoid resect ion and and colostomy Relative hypotension, possibly IV pain medication effect, not of significance Elevated white blood count, possibly reactive, possible intra-abdominal source of infection, maintained on empiric antibiotics Anemia, multifactorial as expected Chronic constipation history History of bladder prolapse GI prophylaxis DVT prophylaxis Full code Plan: Patient being followed by general surgery status post reduction of the prolapse with resection and end colostomy. Patient is having gas and stool. Patient needs ostomy education prior to discharge and consult was placed. No staff available until Friday. Diet has been advanced to regular diet per surgery and tolerating with no r eported nausea or vomiting. Needs encouragement with meals as patient reports not much of an appetite Patient is empirically maintained on antibiotics with infectious disease following in the form of Zosyn and will continue on Augmentin for 10 days on discharge. Patient having elevated white count will obtain chest x-ray and urinalysis. Will follow-up on repeat labs and replace electrolytes per protocol Encouraged increased activity as tolerated. Patient plans on going home with home care once patient has received ostomy education. The impression and plan of care has been dictated as a scribe by Doris Flores, nurse practitioner as directed. Dr. Josef MD I have performed a history and examination and MDM of this patient, discussed the same with the dictator, and will be documented as a scribe. Based on total visit time, I have performed more than 50% of the visit. Any additional findings or plans will be noted. Objective - Vital Signs Vital signs: Vital Signs Temp 98.2 F 12/07/22 14:07 Pulse 60 12/07/22 14:07 Resp 18 12/07/22 14:07 BP 178/77 12/07/22 14:07 Pulse Ox 95 12/07/22 14:07 FiO2 Intake & Output 12/06/22 12/07/22 12/07/22 18:59 06:59 18:59 Output Total 180 190 220 Balance -180 -190 -220 Weight 59.421 kg Output: Drainage 180 190 220 Abdomen 180 190 220 Other: Voiding Method Bedside Commode Toilet Toilet # Voids 4 3 # Bowel Movements 0 - Labs CBC & Chem 7: 12/07/22 05:58 12/07/22 05:58 Labs: Abnormal Lab Results - Last 24 Hours (Table) 12/07/22 12/07/22 Range/Units 05:58 05:58 WBC 16.33 H (4.50-10.00) X 10*3/uL RBC 2.86 L (4.10-5.20) X 10*6/uL Hgb 8.6 L (12.0-15.0) d/dL Hct 27.0 L (37.2-46.3) % MCHC 31.9 L (32.0-37.0) d/dL RDW 15.0 H (11.5-14.5) % Plt Count 443 H (140-440) X 10*3/uL Neutrophils # 12.44 H (1.80-7.70) X 10*3/uL Monocytes # 1.68 H (0.20-1.00) X 10*3/uL Eosinophils # 0.36 H (0.04-0.35) X 10*3/uL Carbon Dioxide 20.2 L (21.6-31.8) mmol/L BUN 8.4 L (9.0-27.0) mg/dL Calcium 8.5 L (8.7-10.3) mg/dL Microbiology - Last 24 Hours (Table) 12/03/22 21:16 Blood Culture - Preliminary Blood
--- NOTE | 2022-12-07 17:01 | XR ---
EXAMINATION TYPE: XR chest 1V portable DATE OF EXAM: 12/07/2022 4:56 PM CLINICAL INDICATION:Female, 77 years old with history of shortness of breath, elev. WBC; [facility] COMPARISON: Chest radiographs from 1923 TECHNIQUE: XR chest 1V portable Frontal view of the chest. FINDINGS: Lungs/Pleura: Low lung volumes are present. There is no evidence of pleural effusion, focal consolida tion, or pneumothorax. Pulmonary vascularity: Unremarkable. Heart/mediastinum: Cardiomediastinal silhouette is unremarkable. Musculoskeletal: No acute osseous pathology. IMPRESSION: No acute cardiopulmonary disease/process. No change from prior.
[2022-12-07 21:56] LABS: Appearance,Urine Clear (Clear); Bilirubin,Urine Negative (Negative); Blood,Urine Moderate (Negative); Color,Urine Yellow; Glucose,Urine (UA) Negative (Negative); Hyaline Casts,Urine 1 /lpf (0-2); Ketones,Urine Negative (Negative); Leukocyte Esterase,Urine Negative (Negative); Mucus,Urine Rare /hpf; Nitrite,Urine Negative (Negative); Protein,Urine Negative (Negative); RBC,Urine 122 /hpf (0-5); Specific Gravity,Urine 1.017 (1.001-1.035); Squamous Epithelial Cell,Urine 1 /hpf (0-4); Urobilinogen,Urine <2.0 mg/dL (<2.0); WBC,Urine 15 /hpf (0-5)
[2022-12-08] MEDS: SODIUM CHLORIDE 0.9% 1,000 ML IV SCH ×3 (00:03→15:02)
[2022-12-08] MEDS: PIPERACILLIN-TAZOBACTAM 3.375 GM in SODIUM CHLORIDE 0.9% 100 ML IVPB SCH ×3 (00:34→16:56)
[2022-12-08] MEDS: METOPROLOL TARTRATE 25 MG TAB PO SCH ×2 (08:05→21:30)
[2022-12-08] MEDS: ENOXAPARIN 40 MG/0.4 ML SYRINGE SQ SCH (08:05)
[2022-12-08] MEDS: PRAVASTATIN SODIUM 40 MG TAB PO SCH (08:05)
[2022-12-08] MEDS: amLODIPine 5 MG TAB PO SCH ×2 (08:05→21:30)
[2022-12-08] MEDS: PANTOPRAZOLE 40 MG/10 ML VIAL IVP SCH ×2 (08:05→21:30)
[2022-12-08] MEDS: prednisoLONE ACETATE 1% OPHTH DROPS 5 ML BTL BOTH EYES SCH ×4 (08:06→21:31)
[2022-12-08] MEDS: MOXIFLOXACIN HCL 0.5% DROPS 3 ML BTL BOTH EYES SCH ×4 (08:06→21:31)
[2022-12-08 09:03] LABS: Basophils # (A) 0.06 X 10*3/uL (0.00-0.10); Basophils % (A) 0.4 %; Eosinophils # (A) 0.41 X 10*3/uL (0.04-0.35); Eosinophils % (A) 2.5 %; HCT 24.2 % (37.2-46.3); HGB 7.7 d/dL (12.0-15.0); Lymphocytes # (A) 1.14 X 10*3/uL (0.90-5.00); Lymphocytes % (A) 7.1 %; MCH 30.1 pg (27.0-32.0); MCHC 31.8 d/dL (32.0-37.0); MCV 94.5 FL (80.0-97.0); Mean Platelet Volume 11.2 FL (9.5-12.2); Monocytes % (A) 9.3 %; NRBC Per 100 WBC 0 X 10*3/uL (0.00-0.01); Neutrophils # (A) 12.61 X 10*3/uL (1.80-7.70); Platelet Count 426 X 10*3/uL (140-440); RBC 2.56 X 10*6/uL (4.10-5.20); RDW 15.1 % (11.5-14.5); WBC 16.16 X 10*3/uL (4.50-10.00)
[2022-12-08] MEDS: ALBUTEROL NEBULIZED 2.5 MG/3 ML INHALATION SCH ×5 (09:06→22:38)
--- NOTE | 2022-12-08 10:22 | P.PN ---
Progress Note - Text Progress Note Date: 12/08/22 Patient's postoperative day 7 for treatment of string related rectal prolapse with low anterior section. Colostomy dysfunction. On exam vital signs are stable. Abdomen is soft. Patient is stable from a surgical standpoint. She was discharged home per medical service.
[2022-12-08 12:10] LABS: ALT 21 U/L (8-44); AST 20 U/L (13-35); Albumin 2.6 d/dL (3.8-4.9); Albumin/Globulin Ratio 1.53 Ratio (1.60-3.17); Alkaline Phosphatase 52 U/L (41-126); BUN/Creat Ratio 12.67 Ratio (12.00-20.00); Blood Urea Nitrogen 7.6 mg/dL (9.0-27.0); Calcium 8.2 mg/dL (8.7-10.3); Carbon Dioxide 20.5 mmol/L (21.6-31.8); Chloride 103 mmol/L (96-109); Globulin 1.7 d/dL (1.6-3.3); Glucose 93 mg/dL (70-110); Potassium 3.7 mmol/L (3.5-5.5); Sodium 134 mmol/L (135-145); Total Bilirubin <0.2 mg/dL (0.3-1.2); Total Protein 4.3 d/dL (6.2-8.2)
[2022-12-08] MEDS: THIAMINE 100 MG TAB PO SCH (12:30)
[2022-12-08] MEDS: FOLIC ACID 1 MG TAB PO SCH (12:30)
[2022-12-08] MEDS: MULTIVITAMINS, THERA 1 EACH TAB PO SCH (12:30)
--- NOTE | 2022-12-08 22:43 | P.PN ---
Subjective Progress Note Date: 12/08/22 Principal diagnosis: leukocytosis Patient is a 77-year-old female with a past medical history significant for hypertension hyperlipidemia COVID-19 bladder prolapse and UTI presenting to the hospital on 11/30/2022 for evaluation of rectal bleeding, the patient is status post laparotomy with rectosigmoid resection and end colostomy noticed to have worsening of the white count prompting this infectious disease consultation. On today's evaluation that is 12/08/2022, the patient continues to be afebrile , the patient is breathing comfortably on room air , the patient denies chest pain shortness of breath or cough, patient denies having any nausea or vomiting, no abdominal pain or diarrhea , the patient did have output in the colostomy, no new symptoms , feeling better Patient white count is 16.16, creatinine 0.6 Objective - Vital Signs Vital signs: Vital Signs Temp 98.0 F 12/08/22 06:56 Pulse 60 12/08/22 09:27 Resp 18 12/08/22 06:56 BP 170/81 12/08/22 06:56 Pulse Ox 95 12/08/22 06:56 FiO2 Intake & Output 12/07/22 12/08/22 12/08/22 18:59 06:59 18:59 Output Total 320 210 450 Balance -320 -210 -450 Output: Drainage 320 210 450 Abdomen 320 210 450 Other: Voiding Method Toilet # Voids 5 3 1 # Bowel Movements 1 - Exam GENERAL DESCRIPTION: Elderly female lying in bed in no distress RESPIRATORY SYSTEM: Unlabored breathing , decreased breath sounds at bases HEART: S1 S2 regular rate and rhythm ,no loud murmurs ABDOMEN: Soft , no tenderness EXTREMITIES: No edema feet - Labs CBC & Chem 7: 12/08/22 03:58 12/08/22 03:58 Labs: Abnormal Lab Results - Last 24 Hours (Table) 12/07/22 12/08/22 Range/Units 21:23 03:58 WBC 16.16 H (4.50-10.00) X 10*3/uL RBC 2.56 L (4.10-5.20) X 10*6/uL Hgb 7.7 L (12.0-15.0) d/dL Hct 24.2 L (37.2-46.3) % MCHC 31.8 L (32.0-37.0) d/dL RDW 15.1 H (11.5-14.5) % Neutrophils # 12.61 H (1.80-7.70) X 10*3/uL Monocytes # 1.50 H (0.20-1.00) X 10*3/uL Eosinophils # 0.41 H (0.04-0.35) X 10*3/uL Urine Blood Moderate H (Negative) Urine RBC 122 H (0-5) /hpf Urine WBC 15 H (0-5) /hpf Urine Mucus Rare H (None) /hpf Assessment and Plan (1) Leukocytosis Current Visit: Yes Status: Acute Code(s): D72.829 - ELEVATED WHITE BLOOD CELL COUNT, UNSPECIFIED SNOMED Code(s): 781174000 Plan: 1patient with elevated white count in this patient presented to hospital with rectal bleeding and this patient is status post laparotomy with the rectosigmoid resection and diverting colostomy possible reactive for surgery versus abdominal source with the patient also noted to have a drop in hemoglobin requiring a blood transfusion. 2blood cultures are so far negative inflammatory markers are elevated. 3patient did have clinical improvement however has slight worsening of the white count yesterday and slight decrease today, we will continue the patient on Zosyn and we'll recheck her CBC and inflammatory markers with a.m. lab, if any worsening may need a CT Dictation was produced using [employer] dictation software. please excuse any grammatical, word or spelling errors. Time with Patient: Less than 30
[2022-12-09] MEDS: SODIUM CHLORIDE 0.9% 1,000 ML IV SCH ×2 (00:02→21:16)
[2022-12-09] MEDS: PIPERACILLIN-TAZOBACTAM 3.375 GM in SODIUM CHLORIDE 0.9% 100 ML IVPB SCH ×4 (00:17→23:53)
--- NOTE | 2022-12-09 05:28 | P.PN ---
Subjective Progress Note Date: 12/08/22 This is a 77-year-old female who was admitted with strangulated rectal prolapse status post exploratory laparotomy, reduction of rectal prolapse, recto-sigmoid resection and colostomy which Gen. surgery following. Patient does have an ostomy and was noted to have gas and very small amount of stool noted. Diet is being advanced per general surgery and awaiting ostomy education. Patient is also being followed by infectious disease and is maintained on Zosyn and will likely continue with oral Augmentin on discharge. Patient with generalized weakness although feels can go home with spouse and continue with home care. Plan is for possible home in 24 hours if patient has received ostomy education. Patient is afebrile with no reported chest pain or shortness of breath. Patient tolerating diet and needs encouragement with meals. No reported nausea or vomiting noted. 12/07/2022 Patient is seen in follow-up today continues report some abdominal discomfort with position changes. Discussed avoiding IV pain medications if possible. Patient is having stool noted in the ostomy and has yet to receive education regarding care this patient will be going home with spouse. Consult was placed although unavailable until Friday. Patient continues with generalized weakness and encouraged increased activity as tolerated. Patient is afebrile with no reported chest pain or shortness of breath. Patient maintained on antibiotics and will continue short course of oral Augmentin on discharge. Patient is afebrile although mildly concerned as patient white count is slightly elevated. Patient to continue on IV antibiotics with infectious disease following and will obtain a chest x-ray. Patient denies any burning or pain or frequency with urination. Patient did have abdominal pain will obtain urinalysis. 12/08/2022 Patient is seen in follow-up today no acute issues overnight. Awaiting to receive ostomy wound care education will return demonstration prior to discharge home as patient is going home with spouse. This is a new ostomy and will be also arranging for home care. Patient did have mildly elevated white count and follow-up chest x-ray with no significant change from previous. Patient is denying chest pain or shortness of breath or cough. Patient is tolerating advanced diet to encourage meals. Infectious disease following and patient is maintained on IV antibiotics and will continue. Encouraged increased activity as tolerated. Review of systems: Constitutional: No reports of fatigue, fever, or chills Cardiovascular: No reports of chest pain or palpitations Respiratory: No reports of shortness of breath or cough GI: No reports of nausea, no reports of vomiting, reports gas in the ostomy with stool : No reports of dysuria or retention Neurovascular: reports of generalized weakness All medications have been reviewed PHYSICAL EXAMINATION: GENERAL: The patient is alert and oriented x4, Well developed, elderly appearing female HEENT: Pupils are round and equally reacting to light. EOMI. no scleral icterus. No conjunctival pallor. Normocephalic, atraumatic. No pharyngeal erythema. No thyromegaly. CARDIOVASCULAR: S1 and S2 muffled PULMONARY: diminished breath sounds bilaterally with no wheezing or rhonchi noted. ABDOMEN: soft. Nontender on exam. non-distended, normoactive bowel sounds. No palpable organomegaly. Ostomy noted with gas and stool MUSCULOSKELETAL: No joint swelling or deformity. EXTREMITIES: No cyanosis, clubbing, or pedal edema. NEUROLOGICAL: Gross neurological examination did not reveal any focal deficits. Diffuse weakness SKIN: No rashes. Assessment: 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, status post status post exploratory laparotomy, reduction of rectal prolapse, rectosigmoid resec tion and and colostomy Relative hypotension, possibly IV pain medication effect, not of significance Elevated white blood count, possibly reactive, possible intra-abdominal source of infection, maintained on empiric antibiotics Anemia, multifactorial as expected Chronic constipation history History of bladder prolapse GI prophylaxis DVT prophylaxis Full code Plan: Patient being followed by general surgery status post reduction of the prolapse with resection and end colostomy. Patient is having gas and stool. Patient needs ostomy education prior to discharge and consult was placed. Ostomy nurse to evaluate today. Diet has been advanced to regular diet per surgery and tolerating with no r eported nausea or vomiting. Needs encouragement with meals as patient reports not much of an appetite Patient is empirically maintained on antibiotics with infectious disease following in the form of Zosyn and will continue. Patient having elevated white count and chest x-ray and urinalysis within normal limits. If Patient continues to have elevated white count may need repeat CT abdomen per ID recommendations. Will repeat labs in a.m. Encouraged increased activity as tolerated. Patient plans on going home with home care once patient has received ostomy education. Possible discharge in the next 24 hours The impression and plan of care has been dictated as a scribe by Doris Flores, nurse practitioner as directed. Dr. Josef MD I have performed a history and examination and MDM of this patient, discussed the same with the dictator, and will be documented as a scribe. Based on total visit time, I have performed more than 50% of the visit. Any additional findings or plans will be noted. Objective - Vital Signs Vital signs: Vital Signs Temp 98.0 F 12/08/22 06:56 Pulse 60 12/08/22 09:27 Resp 18 12/08/22 06:56 BP 170/81 12/08/22 06:56 Pulse Ox 95 12/08/22 06:56 FiO2 Intake & Output 12/07/22 12/08/22 12/08/22 18:59 06:59 18:59 Output Total 320 210 450 Balance -320 -210 -450 Output: Drainage 320 210 450 Abdomen 320 210 450 Other: Voiding Method Toilet # Voids 5 3 1 # Bowel Movements 1 - Labs CBC & Chem 7: 12/08/22 03:58 12/08/22 03:58 Labs: Abnormal Lab Results - Last 24 Hours (Table) 12/07/22 12/08/22 Range/Units 21:23 03:58 WBC 16.16 H (4.50-10.00) X 10*3/uL RBC 2.56 L (4.10-5.20) X 10*6/uL Hgb 7.7 L (12.0-15.0) d/dL Hct 24.2 L (37.2-46.3) % MCHC 31.8 L (32.0-37.0) d/dL RDW 15.1 H (11.5-14.5) % Neutrophils # 12.61 H (1.80-7.70) X 10*3/uL Monocytes # 1.50 H (0.20-1.00) X 10*3/uL Eosinophils # 0.41 H (0.04-0.35) X 10*3/uL Urine Blood Moderate H (Negative) Urine RBC 122 H (0-5) /hpf Urine WBC 15 H (0-5) /hpf Urine Mucus Rare H (None) /hpf
[2022-12-09 09:33] LABS: BUN/Creat Ratio 10.17 Ratio (12.00-20.00); Blood Urea Nitrogen 6.1 mg/dL (9.0-27.0); Calcium 8.2 mg/dL (8.7-10.3); Carbon Dioxide 22.5 mmol/L (21.6-31.8); Chloride 105 mmol/L (96-109); Glucose 101 mg/dL (70-110); Magnesium 1.9 mg/dL (1.5-2.4); Potassium 3.6 mmol/L (3.5-5.5); Sodium 137 mmol/L (135-145)
[2022-12-09 09:35] LABS: Basophils # (A) 0.05 X 10*3/uL (0.00-0.10); Basophils % (A) 0.3 %; Eosinophils # (A) 0.22 X 10*3/uL (0.04-0.35); Eosinophils % (A) 1.3 %; HCT 24.4 % (37.2-46.3); HGB 8.1 d/dL (12.0-15.0); Lymphocytes % (A) 7.8 %; MCH 30.5 pg (27.0-32.0); MCHC 33.2 d/dL (32.0-37.0); MCV 91.7 FL (80.0-97.0); Mean Platelet Volume 10.7 FL (9.5-12.2); Monocytes # (A) 1.55 X 10*3/uL (0.20-1.00); Monocytes % (A) 9.3 %; NRBC Per 100 WBC 0 X 10*3/uL (0.00-0.01); Neutrophils # (A) 13.11 X 10*3/uL (1.80-7.70); Neutrophils % (A) 78.3 %; Platelet Count 476 X 10*3/uL (140-440); RBC 2.66 X 10*6/uL (4.10-5.20); RDW 15.1 % (11.5-14.5); WBC 16.74 X 10*3/uL (4.50-10.00)
[2022-12-09] MEDS: prednisoLONE ACETATE 1% OPHTH DROPS 5 ML BTL BOTH EYES SCH ×4 (09:59→21:27)
[2022-12-09] MEDS: MOXIFLOXACIN HCL 0.5% DROPS 3 ML BTL BOTH EYES SCH ×4 (09:59→21:27)
[2022-12-09] MEDS: IOPAMIDOL CONTRAST (ORAL USE) VIAL PO PRN ×2 (10:15→11:15)
[2022-12-09] MEDS: PRAVASTATIN SODIUM 40 MG TAB PO SCH (10:15)
[2022-12-09] MEDS: METOPROLOL TARTRATE 25 MG TAB PO SCH ×2 (10:15→21:16)
[2022-12-09] MEDS: ENOXAPARIN 40 MG/0.4 ML SYRINGE SQ SCH (10:15)
[2022-12-09] MEDS: PANTOPRAZOLE 40 MG/10 ML VIAL IVP SCH ×2 (10:15→21:16)
[2022-12-09] MEDS: amLODIPine 5 MG TAB PO SCH ×2 (10:16→21:16)
[2022-12-09] MEDS: ALBUTEROL NEBULIZED 2.5 MG/3 ML INHALATION SCH ×4 (10:17→18:50)
--- NOTE | 2022-12-09 12:29 | CT ---
EXAMINATION TYPE: CT abdomen pelvis w con DATE OF EXAM: 12/09/2022 COMPARISON: 11/03/2021 INDICATION: Recent ostomy surgery, elevated white count DLP: 1107.8 mGycm, Automated exposure control for dose reduction was used. CONTRAST: 100 mL of Isovue 300. Study performed with Oral Contrast TECHNIQUE: Axial images were obtained from above the diaphragm to the pubic rami in the axial plane a t 5 mm thick sections. Reconstructed images are reviewed on the computer in the coronal plane. FINDINGS: Limited CT sections are obtained the lung bases. Some minimal compressive atelectasis may be present . Minimal pleural effusions are present bilaterally.. Moderate size hiatal hernia is present. CT ABDOMEN: Liver: Some mild fatty infiltration of liver is present. Spleen: Normal Pancreas: Normal Adrenal glands: The adrenal glands are normal. Gallbladder: Normal Kidneys: No masses are evident. There is prominent left hydronephrosis. An extrarenal pelvis and mild right hydronephrosis is present. Cortical renal cysts on the posterior lateral inferior pole right k idney. Tiny cortical renal cysts are within the left kidney cortex. Delayed images were obtained thr ough the kidneys. There may be some delayed excretion on the left compared to the right. Aorta: Vascular calcification is within the aorta. Inferior vena cava: Normal. CT PELVIS: Drainage catheter enters the mid abdomen and is curled within the pelvis. No free air is i dentified. Surgical skin ramo are in the midline. The monitoring and artifact from left hip prosth esis is present. Loops of bowel within the abdomen and pelvis are normal. Fecal debris is within the ascending col on region. There is an ostomy in the left anterior abdomen. No abscess adjacent is identified. Appendix: Not identified. No dilated tubular structure or inflammatory changes are evident. Urinary bladder: Cystocele may be present. Urinary bladder is otherwise unremarkable. Genitourinary structures: Uterus is not identified. Adnexa are unremarkable. Osseous structures: No suspicious lytic or sclerotic lesions. Degenerative changes are through the sc oliotic thoracolumbar spine. There is loss of disc height at multiple levels. IMPRESSION: 1. No suspicious abscess formation evident. 2. Left mid abdomen ostomy. 3. Moderate size hiatal hernia. 4. Prominent left hydronephrosis and proximal hydroureter. Hydroureter extends to the urinary bladder . 5. Cystocele. 6. Mild right hydronephrosis and hydroureter. 7. Scoliosis to disc changes.
--- NOTE | 2022-12-09 12:31 | P.PN ---
Subjective Progress Note Date: 12/09/22 Principal diagnosis: leukocytosis Patient is a 77-year-old female with a past medical history significant for hypertension hyperlipidemia COVID-19 bladder prolapse and UTI presenting to the hospital on 11/30/2022 for evaluation of rectal bleeding, the patient is status post laparotomy with rectosigmoid resection and end colostomy noticed to have worsening of the white count prompting this infectious disease consultation. On today's evaluation that is 12/09/2022, the patient denies any fever or any chills, , the patient is breathing comfortably on room air , the patient denies chest pain and had no significant cough, patient denies nausea or vomiting, the patient denies abdominal pain or diarrhea the patient did have output in the colostomy, patient is feeling better Patient white count is 16.74, creatinine 0.6 Objective - Vital Signs Vital signs: Vital Signs Temp 98.5 F 12/09/22 08:00 Pulse 75 12/09/22 08:00 Resp 18 12/09/22 08:00 BP 149/83 12/09/22 08:00 Pulse Ox 96 12/09/22 08:00 FiO2 Intake & Output 12/08/22 12/09/22 12/09/22 18:59 06:59 18:59 Intake Total 120 Output Total 560 60 120 Balance -560 -60 0 Intake: Oral 120 Output: Drainage 560 60 120 Abdomen 560 60 120 Other: Voiding Method Toilet # Voids 1 5 # Bowel Movements 1 - Exam GENERAL DESCRIPTION: Elderly female lying in bed in no distress RESPIRATORY SYSTEM: Unlabored breathing , decreased breath sounds at bases HEART: S1 S2 regular rate and rhythm ,no loud murmurs ABDOMEN: Soft , no tenderness EXTREMITIES: No edema feet - Labs CBC & Chem 7: 12/09/22 05:24 12/09/22 05:24 Labs: Abnormal Lab Results - Last 24 Hours (Table) 12/08/22 12/09/22 12/09/22 Range/Units 03:58 05:24 05:24 WBC 16.74 H (4.50-10.00) X 10*3/uL RBC 2.66 L (4.10-5.20) X 10*6/uL Hgb 8.1 L (12.0-15.0) d/dL Hct 24.4 L (37.2-46.3) % RDW 15.1 H (11.5-14.5) % Plt Count 476 H (140-440) X 10*3/uL Neutrophils # 13.11 H (1.80-7.70) X 10*3/uL Monocytes # 1.55 H (0.20-1.00) X 10*3/uL BUN 6.1 L (9.0-27.0) mg/dL BUN/Creatinine Ratio 10.17 L (12.00-20.00) Ratio Calcium 8.2 L (8.7-10.3) mg/dL C-Reactive Protein 0.90 H (0.00-0.80) mg/dL Microbiology - Last 24 Hours (Table) 12/03/22 21:16 Blood Culture - Final Blood Assessment and Plan (1) Leukocytosis Current Visit: Yes Status: Acute Code(s): D72.829 - ELEVATED WHITE BLOOD CELL COUNT, UNSPECIFIED SNOMED Code(s): 398628643 Plan: 1patient with elevated white count in this patient presented to hospital with rectal bleeding and this patient is status post laparotomy with the rectosigmoid resection and diverting colostomy possible reactive for surgery versus abdominal source with the patient also noted to have a drop in hemoglobin requiring a blood transfusion. 2blood cultures are so far negative inflammatory markers are elevated. 3patient did have clinical improvement however white count is still elevated patient is to get a CT of abdominal pelvis for now continue the Zosyn and monitor clinical course closely Dictation was produced using [employer] dictation software. please excuse any grammatical, word or spelling errors. Time with Patient: Less than 30
[2022-12-09] MEDS: MULTIVITAMINS, THERA 1 EACH TAB PO SCH (13:46)
[2022-12-09] MEDS: FOLIC ACID 1 MG TAB PO SCH (13:46)
[2022-12-09] MEDS: THIAMINE 100 MG TAB PO SCH (13:46)
--- NOTE | 2022-12-09 14:43 | P.PN ---
Subjective Progress Note Date: 12/09/22 CHIEF COMPLAINT: Strangulated rectal prolapse HISTORY OF PRESENT ILLNESS: Postoperative day #9 status post exploratory laparotomy, reduction of rectal prolapse, rectosigmoid resection and and colostomy. Patient lying in bed comfortably. Pain controlled. White count is remaining elevated at 16.74. Ostomy functioning. Afebrile. HEPA 0.1 PHYSICAL EXAM: VITAL SIGNS: Reviewed. GENERAL: Well-developed in no acute distress. HEENT: No sclera icterus. Extraocular movements grossly intact. Moist buccal mucosa. Head is atraumatic, normocephalic. ABDOMEN: Soft. Nondistended. Ostomy with air and small amount of stool on stoma. Stoma large beefy red. Incision clean dry and intact. NEUROLOGIC: Alert and oriented. Cranial nerves II through XII grossly intact. ASSESSMENT: 1. Strangulated rectal prolapse status post exploratory laparotomy, reduction of rectal prolapse, rectosigmoid resection and and colostomy PLAN: -Continue regular diet -Agree with repeating a computed tomography scan of the abdomen and pelvis due to elevated white count -Encourage patient to use incentive spirometer -Continue antibiotics -Continue pain management -assistant project manager arranging home care at discharge -DVT prophylaxis Lovenox Physician Security Project Manager note has been reviewed by physician. Signing provider agrees with the documented findings, assessment, and plan of care. Objective - Vital Signs Vital signs: Vital Signs Temp 98.5 F 12/09/22 08:00 Pulse 75 12/09/22 08:00 Resp 18 12/09/22 08:00 BP 149/83 12/09/22 08:00 Pulse Ox 96 12/09/22 08:00 FiO2 Intake & Output 12/08/22 12/09/22 12/09/22 18:59 06:59 18:59 Output Total 560 60 60 Balance -560 -60 -60 Output: Drainage 560 60 60 Abdomen 560 60 60 Other: # Voids 1 5 # Bowel Movements 1 - Labs CBC & Chem 7: 12/09/22 05:24 12/09/22 05:24 Labs: Abnormal Lab Results - Last 24 Hours (Table) 12/08/22 12/09/22 12/09/22 Range/Units 03:58 05:24 05:24 WBC 16.74 H (4.50-10.00) X 10*3/uL RBC 2.66 L (4.10-5.20) X 10*6/uL Hgb 8.1 L (12.0-15.0) d/dL Hct 24.4 L (37.2-46.3) % RDW 15.1 H (11.5-14.5) % Plt Count 476 H (140-440) X 10*3/uL Neutrophils # 13.11 H (1.80-7.70) X 10*3/uL Monocytes # 1.55 H (0.20-1.00) X 10*3/uL Sodium 134 L (135-145) mmol/L Carbon Dioxide 20.5 L (21.6-31.8) mmol/L BUN 7.6 L 6.1 L (9.0-27.0) mg/dL BUN/Creatinine Ratio 10.17 L (12.00-20.00) Ratio Calcium 8.2 L 8.2 L (8.7-10.3) mg/dL Total Bilirubin <0.2 L (0.3-1.2) mg/dL C-Reactive Protein 0.90 H (0.00-0.80) mg/dL Total Protein 4.3 L (6.2-8.2) d/dL Albumin 2.6 L (3.8-4.9) d/dL Albumin/Globulin Ratio 1.53 L (1.60-3.17) Ratio Microbiology - Last 24 Hours (Table) 12/03/22 21:16 Blood Culture - Final Blood
--- NOTE | 2022-12-09 22:49 | P.PN ---
Subjective Progress Note Date: 12/09/22 This is a 77-year-old female who was admitted with strangulated rectal prolapse status post exploratory laparotomy, reduction of rectal prolapse, recto-sigmoid resection and colostomy which Gen. surgery following. Patient does have an ostomy and was noted to have gas and very small amount of stool noted. Diet is being advanced per general surgery and awaiting ostomy education. Patient is also being followed by infectious disease and is maintained on Zosyn and will likely continue with oral Augmentin on discharge. Patient with generalized weakness although feels can go home with spouse and continue with home care. Plan is for possible home in 24 hours if patient has received ostomy education. Patient is afebrile with no reported chest pain or shortness of breath. Patient tolerating diet and needs encouragement with meals. No reported nausea or vomiting noted. 12/07/2022 Patient is seen in follow-up today continues report some abdominal discomfort with position changes. Discussed avoiding IV pain medications if possible. Patient is having stool noted in the ostomy and has yet to receive education regarding care this patient will be going home with spouse. Consult was placed although unavailable until Friday. Patient continues with generalized weakness and encouraged increased activity as tolerated. Patient is afebrile with no reported chest pain or shortness of breath. Patient maintained on antibiotics and will continue short course of oral Augmentin on discharge. Patient is afebrile although mildly concerned as patient white count is slightly elevated. Patient to continue on IV antibiotics with infectious disease following and will obtain a chest x-ray. Patient denies any burning or pain or frequency with urination. Patient did have abdominal pain will obtain urinalysis. 12/08/2022 Patient is seen in follow-up today no acute issues overnight. Awaiting to receive ostomy wound care education will return demonstration prior to discharge home as patient is going home with spouse. This is a new ostomy and will be also arranging for home care. Patient did have mildly elevated white count and follow-up chest x-ray with no significant change from previous. Patient is denying chest pain or shortness of breath or cough. Patient is tolerating advanced diet to encourage meals. Infectious disease following and patient is maintained on IV antibiotics and will continue. Encouraged increased activity as tolerated. 12/09/2022 Patient is seen and evaluated in follow-up did receive some ostomy training with follow-up scheduled for today. Patient continues to have elevated white count of 16.7 maintained on antibiotics with infectious disease following and will order repeat CT abdomen to evaluate for any acute process. Patient denies abdominal discomfort is afebrile with no reported chest pain or shortness of breath. Patient reports is urinating and voiding with no difficulties and denies any pain or burning with frequency. Patient is tolerating diet with no reported nausea or vomiting noted. Review of systems: Constitutional: No reports of fatigue, fever, or chills Cardiovascular: No reports of chest pain or palpitations Respiratory: No reports of shortness of breath or cough GI: No reports of nausea, no reports of vomiting, reports gas in the ostomy with stool : No reports of dysuria or retention Neurovascular: reports of generalized weakness All medications have been reviewed PHYSICAL EXAMINATION: GENERAL: The patient is alert and oriented x4, Well developed, elderly appearing female HEENT: Pupils are round and equally reacting to light. EOMI. no scleral icterus. No conjunctival pallor. Normocephalic, atraumatic. No pharyngeal erythema. No thyromegaly. CARDIOVASCULAR: S1 and S2 muffled PULMONARY: diminished breath sounds bilaterally with no wheezing or rhonchi noted. ABDOMEN: soft. Nontender on exam. non-distended, normoactive bowel sounds. No palpable organomegaly. Ostomy noted with gas and stool MUSCULOSKELETAL: No joint swelling or deformity. EXTREMITIES: No cyanosis, clubbing, or pedal edema. NEUROLOGICAL: Gross neurological examination did not reveal any focal deficits. Diffuse weakness SKIN: No rashes. Assessment: 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, status post status post exploratory laparotomy, reduction of rectal prolapse, rectosigmoid resection and and colostomy Relative hypotension, possibly IV pain medication effect, not of significance Elevated white blood count, possibly reactive, possible intra-abdominal source of infection, maintained on empiric antibiotics Anemia, multifactorial as expected Chronic constipation history History of bladder prolapse GI prophylaxis DVT prophylaxis Full code Plan: Patient being followed by general surgery status post reduction of the prolapse with resection and end colostomy. Patient is having gas and stool. Patient has received ostomy education and will be going home with spouse and Homecare Diet has been advanced to regular diet per surgery and tolerating with no reported nausea or vomiting. Needs encouragement with meals as patient reports not much of an appetite Patient is empirically maintained on antibiotics with infectious disease following in the form of Zosyn and will continue. Patient continues to have elevated white count and CT abdomen was done showing hydronephrosis bilaterally and will consult urology and appreciate input recommendations. Patient reports is voiding with no difficulties and kidney functions are within normal limits. Patient denies any burning or pain or frequency with urination. Encouraged increased activity as tolerated. Patient plans on going home with home care Possible discharge in the next 24 hours after evaluation from urology The impression and plan of care has been dictated by Doris Flores, Nurse Practitioner as directed. Dr. Xavi MD I have performed a history and examination and MDM of this patient, discussed th e same with the dictator, and agree with the dictator's assessment and plan as written ,documented as a scribe. Based on total visit time, I have performed more than 50% of the visit. Objective - Vital Signs Vital signs: Vital Signs Temp 98.1 F 12/09/22 19:15 Pulse 103 H 12/09/22 19:15 Resp 18 12/09/22 19:15 BP 134/70 12/09/22 19:15 Pulse Ox 98 12/09/22 19:15 FiO2 Intake & Output 12/09/22 12/09/22 12/10/22 06:59 18:59 06:59 Intake Total 330 Output Total 60 290 Balance -60 40 Weight 59.421 kg Intake: Oral 330 Output: Drainage 60 290 Abdomen 60 290 Other: Voiding Method Toilet # Voids 5 - Labs CBC & Chem 7: 12/09/22 05:24 12/09/22 05:24 Labs: Abnormal Lab Results - Last 24 Hours (Table) 12/09/22 12/09/22 Range/Units 05:24 05:24 WBC 16.74 H (4.50-10.00) X 10*3/uL RBC 2.66 L (4.10-5.20) X 10*6/uL Hgb 8.1 L (12.0-15.0) d/dL Hct 24.4 L (37.2-46.3) % RDW 15.1 H (11.5-14.5) % Plt Count 476 H (140-440) X 10*3/uL Neutrophils # 13.11 H (1.80-7.70) X 10*3/uL Monocytes # 1.55 H (0.20-1.00) X 10*3/uL BUN 6.1 L (9.0-27.0) mg/dL BUN/Creatinine Ratio 10.17 L (12.00-20.00) Ratio Calcium 8.2 L (8.7-10.3) mg/dL Microbiology - Last 24 Hours (Table) 12/03/22 21:16 Blood Culture - Final Blood
[2022-12-10] MEDS: SODIUM CHLORIDE 0.9% 1,000 ML IV SCH ×2 (04:30→20:39)
[2022-12-10] MEDS: PIPERACILLIN-TAZOBACTAM 3.375 GM in SODIUM CHLORIDE 0.9% 100 ML IVPB SCH ×2 (08:22→16:52)
[2022-12-10] MEDS: METOPROLOL TARTRATE 25 MG TAB PO SCH ×2 (08:22→20:40)
[2022-12-10] MEDS: ENOXAPARIN 40 MG/0.4 ML SYRINGE SQ SCH (08:22)
[2022-12-10] MEDS: PRAVASTATIN SODIUM 40 MG TAB PO SCH (08:22)
[2022-12-10] MEDS: amLODIPine 5 MG TAB PO SCH ×2 (08:23→20:40)
[2022-12-10] MEDS: MOXIFLOXACIN HCL 0.5% DROPS 3 ML BTL BOTH EYES SCH ×4 (08:23→20:40)
[2022-12-10] MEDS: prednisoLONE ACETATE 1% OPHTH DROPS 5 ML BTL BOTH EYES SCH ×4 (08:23→20:39)
[2022-12-10] MEDS: PANTOPRAZOLE 40 MG/10 ML VIAL IVP SCH ×2 (08:23→22:11)
[2022-12-10] MEDS: ALBUTEROL NEBULIZED 2.5 MG/3 ML INHALATION SCH ×4 (08:50→20:22)
--- NOTE | 2022-12-10 12:25 | P.PN ---
Subjective Progress Note Date: 12/10/22 CHIEF COMPLAINT: Strangulated rectal prolapse HISTORY OF PRESENT ILLNESS: Postoperative day #10 status post exploratory laparotomy, reduction of rectal prolapse, rectosigmoid resection and and colostomy. Patient lying in bed comfortably. Pain controlled. Ostomy functioning. YUMIKO drain with 50 mL serous output. afebrile. CT no suspicious abscess. Moderate size hiatal hernia. Prominent left hydronephrosis. Mild right hydronephrosis and hydroureter. Cystocele. PHYSICAL EXAM: VITAL SIGNS: Reviewed. GENERAL: Well-developed in no acute distress. HEENT: No sclera icterus. Extraocular movements grossly intact. Moist buccal mucosa. Head is atraumatic, normocephalic. ABDOMEN: Soft. Nondistended. Incision site clean dry and intact. Ostomy with stool. NEUROLOGIC: Alert and oriented. Cranial nerves II through XII grossly intact. ASSESSMENT: 1. Strangulated rectal prolapse status post exploratory laparotomy, reduction of rectal prolapse, rectosigmoid resection and and colostomy PLAN: -Patient can be discharged from surgical standpoint when medically cleared -Agree with urology consult regarding hydronephrosis and cystoscopy -Continue regular diet -Antibiotics per ID service -DVT prophylaxis Lovenox Physician Specialist Icu note has been reviewed by physician. Signing provider agrees with the documented findings, assessment, and plan of care. Objective - Vital Signs Vital signs: Vital Signs Temp 97.9 F 12/10/22 07:36 Pulse 70 12/10/22 08:59 Resp 17 12/10/22 07:36 BP 172/81 12/10/22 07:36 Pulse Ox 96 12/10/22 08:52 FiO2 21 12/10/22 08:52 Intake & Output 12/09/22 12/10/22 12/10/22 18:59 06:59 18:59 Intake Total 330 Output Total 290 360 Balance 40 -360 Weight 59.421 kg Intake: Oral 330 Output: Drainage 290 110 Abdomen 290 110 Stool 250 Other: Voiding Method Toilet # Voids 8 4 # Bowel Movements 1 - Labs CBC & Chem 7: 12/09/22 05:24 12/09/22 05:24
[2022-12-10 12:30] LABS: Basophils # (A) 0.09 X 10*3/uL (0.00-0.10); Basophils % (A) 0.5 %; Eosinophils # (A) 0.26 X 10*3/uL (0.04-0.35); Eosinophils % (A) 1.6 %; HCT 25.9 % (37.2-46.3); HGB 8.3 d/dL (12.0-15.0); Lymphocytes % (A) 6.7 %; MCH 29.5 pg (27.0-32.0); MCV 92.2 FL (80.0-97.0); Mean Platelet Volume 10.6 FL (9.5-12.2); Monocytes # (A) 1.25 X 10*3/uL (0.20-1.00); Monocytes % (A) 7.6 %; NRBC Per 100 WBC 0 X 10*3/uL (0.00-0.01); Neutrophils % (A) 81.4 %; Platelet Count 529 X 10*3/uL (140-440); RBC 2.81 X 10*6/uL (4.10-5.20); RDW 15.1 % (11.5-14.5); WBC 16.46 X 10*3/uL (4.50-10.00)
[2022-12-10] MEDS ORDERED: FLUCONAZOLE 100 MG TAB PO ONE (12:40)
[2022-12-10] MEDS: FOLIC ACID 1 MG TAB PO SCH (12:55)
[2022-12-10] MEDS: MULTIVITAMINS, THERA 1 EACH TAB PO SCH (12:55)
[2022-12-10] MEDS: THIAMINE 100 MG TAB PO SCH (12:55)
--- NOTE | 2022-12-10 12:58 | P.GSCN ---
History of Present Illness Consult date: 12/10/22 Reason for Consult: Bilateral hydronephrosis History of present illness: This is a 77-year-old female admitted to the hospital with rectal prolapse, underwent rectal sigmoid resection with end colostomy by Dr. Londono on 11/30. She does have history of stage IV cystocele, and chronic hydronephrosis. Urology is consulted for bilateral hydronephrosis that was seen incidentally on the CT. She denies any flank pain, gross hematuria or dysuria, indicated to her bladder symptoms are at baseline. Of note the hydronephrosis has been present on previous CT scans. 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 History of Any Multi-Drug Resistant Organisms: None Reported Past Surgical History: Joint Replacement Additional Past Surgical History / Comment(s): Left hip surgery Past Anesthesia/Blood Transfusion Reactions: No Reported Reaction Past Psychological History: No Psychological Hx Reported Smoking Status: Never smoker Past Alcohol Use History: None Reported Past Drug Use History: None Reported - Past Family History Mother Family Medical History: Cancer Sister(s) Family Medical History: Cancer Medications and Allergies Home Medications Medication Instructions Recorded Confirmed Type Metoprolol Tartrate [Lopressor] 25 mg PO BID 08/15/20 11/30/22 History Ascorbic Acid [Vitamin C] 500 mg PO DAILY 11/30/22 11/30/22 History Cholecalciferol [Vitamin D3 (25 25 mcg PO DAILY 11/30/22 11/30/22 History Mcg = 1000 Iu)] Garlic 1,000 mg PO DAILY 11/30/22 11/30/22 History Glucosamine/Chondr Mack A Sod [Osteo 1 tab PO DAILY 11/30/22 11/30/22 History Bi-Flex Caplet] Moxifloxacin HCl [Moxifloxacin 1 drop BOTH EYES QID 11/30/22 11/30/22 History 0.5%] Pravastatin Sodium [Pravachol] 40 mg PO DAILY 11/30/22 11/30/22 History Vitamin A 2,400 mcg PO DAILY 11/30/22 11/30/22 History Vitamin E (Dl,Tocopheryl Acet) 400 unit PO DAILY 11/30/22 11/30/22 History [Vitamin E (400 Iu = 180 mg)] prednisoLONE ACETATE 1% OPHTH 1 drops BOTH EYES QID 11/30/22 11/30/22 History [Pred Forte 1%] Folic Acid 1 mg PO DAILY@1200 #30 tab 12/09/22 Rx Multivitamins, Thera [Multivitamin 1 each PO DAILY@1200 #30 tab 12/09/22 Rx (formulary)] Thiamine [Vitamin B-1] 100 mg PO DAILY@1200 #30 tab 12/09/22 Rx amLODIPine [Norvasc] 5 mg PO BID #60 tab 12/09/22 Rx Allergies Allergy/AdvReac Type Severity Reaction Status Date / Time adhesive tape Allergy Rash/Hives Verified 11/30/22 12:43 latex Allergy Rash/Hives Verified 11/30/22 14:01 Surgical - Exam Vital Signs Temp Pulse Resp BP Pulse Ox 98.0 F 68 18 202/92 96 11/30/22 10:13 11/30/22 10:13 11/30/22 10:13 11/30/22 10:13 11/30/22 10:13 - General no distress, no pain - Eyes normal ocular movement, no pale - ENT normal nares, normal mucosa - Respiratory normal expansion, normal respiratory effort - Abdomen Abdomen: soft, non tender - Psychiatric oriented to time, oriented to person, oriented to place Results - Labs 12/10/22 07:59 12/09/22 05:24 Abnormal Lab Results - Last 24 Hours (Table) 12/10/22 Range/Units 07:59 WBC 16.46 H (4.50-10.00) X 10*3/uL RBC 2.81 L (4.10-5.20) X 10*6/uL Hgb 8.3 L (12.0-15.0) d/dL Hct 25.9 L (37.2-46.3) % RDW 15.1 H (11.5-14.5) % Plt Count 529 H (140-440) X 10*3/uL Neutrophils # 13.40 H (1.80-7.70) X 10*3/uL Monocytes # 1.25 H (0.20-1.00) X 10*3/uL Assessment and Plan Assessment: 77-year-old female history of stage IV cystocele, and bilateral hydronephrosis. Hydronephrosis is chronic in nature most likely secondary to kinking of the ureter secondary to the significant cystocele. Discussed with her given the lack of symptoms and her stable kidney function no acute intervention is needed from urology standpoint -Can follow-up as needed
[2022-12-10 19:26] LABS: Appearance,Urine Clear (Clear); Bilirubin,Urine Negative (Negative); Blood,Urine Negative (Negative); Color,Urine Colorless; Glucose,Urine (UA) Negative (Negative); Ketones,Urine Negative (Negative); Leukocyte Esterase,Urine Negative (Negative); Nitrite,Urine Negative (Negative); PH, Urine 6.5 (5.0-8.0); Protein,Urine Negative (Negative); Specific Gravity,Urine 1.011 (1.001-1.035); Urobilinogen,Urine <2.0 mg/dL (<2.0)
--- NOTE | 2022-12-10 21:12 | P.PN ---
Subjective Progress Note Date: 12/10/22 Principal diagnosis: leukocytosis Patient is a 77-year-old female with a past medical history significant for hypertension hyperlipidemia COVID-19 bladder prolapse and UTI presenting to the hospital on 11/30/2022 for evaluation of rectal bleeding, the patient is status post laparotomy with rectosigmoid resection and end colostomy noticed to have worsening of the white count prompting this infectious disease consultation. On today's evaluation that is 12/10/2022, the patient is afebrile, the patient is breathing comfortably on room air, the patient denies chest pain shortness of breath or cough , The Patient denies nausea vomiting, the patient abdominal pain decreased in intensity and did have output in colostomy bag no new symptoms. Patient white count is elevated 16.46 blood culture has been negative CT abdominal pelvis did not show any abscess however left-sided hydronephrosis and hydroureter for which urology has been consulted. Objective - Vital Signs Vital signs: Vital Signs Temp 97.9 F 12/10/22 07:36 Pulse 70 12/10/22 08:59 Resp 17 12/10/22 07:36 BP 172/81 12/10/22 07:36 Pulse Ox 96 12/10/22 08:52 FiO2 21 12/10/22 08:52 Intake & Output 12/09/22 12/10/22 12/10/22 18:59 06:59 18:59 Intake Total 330 Output Total 290 360 Balance 40 -360 Weight 59.421 kg Intake: Oral 330 Output: Drainage 290 110 Abdomen 290 110 Stool 250 Other: Voiding Method Toilet # Voids 8 4 # Bowel Movements 1 - Exam GENERAL DESCRIPTION: Elderly female lying in bed in no distress RESPIRATORY SYSTEM: Unlabored breathing , decreased breath sounds at bases HEART: S1 S2 regular rate and rhythm ,no loud murmurs ABDOMEN: Soft , no tenderness EXTREMITIES: No edema feet - Labs CBC & Chem 7: 12/10/22 07:59 12/09/22 05:24 Labs: Abnormal Lab Results - Last 24 Hours (Table) 12/10/22 Range/Units 07:59 WBC 16.46 H (4.50-10.00) X 10*3/uL RBC 2.81 L (4.10-5.20) X 10*6/uL Hgb 8.3 L (12.0-15.0) d/dL Hct 25.9 L (37.2-46.3) % RDW 15.1 H (11.5-14.5) % Plt Count 529 H (140-440) X 10*3/uL Neutrophils # 13.40 H (1.80-7.70) X 10*3/uL Monocytes # 1.25 H (0.20-1.00) X 10*3/uL Assessment and Plan (1) Leukocytosis Current Visit: Yes Status: Acute Code(s): D72.829 - ELEVATED WHITE BLOOD CELL COUNT, UNSPECIFIED SNOMED Code(s): 841464170 Plan: 1patient with elevated white count in this patient presented to hospital with rectal bleeding and this patient is status post laparotomy with the rectosigmoid resection and diverting colostomy possible reactive for surgery versus abdominal source with the patient also noted to have a drop in hemoglobin requiring a blood transfusion. 2blood cultures are so far negative inflammatory markers are elevated. 3patient did have persistent elevated white count CT abdominal pelvis with left-sided hydroureter and hydronephrosis urology has been consulted we will repeat a UA continue with the Barak and Joyce repeat his CBC with a.m. lab Dictation was produced using [employer] dictation software. please excuse any grammatical, word or spelling errors.
[2022-12-11] MEDS: PIPERACILLIN-TAZOBACTAM 3.375 GM in SODIUM CHLORIDE 0.9% 100 ML IVPB SCH ×2 (00:26→09:00)
[2022-12-11] MEDS: SODIUM CHLORIDE 0.9% 1,000 ML IV SCH (04:13)
--- NOTE | 2022-12-11 06:12 | P.PN ---
Subjective Progress Note Date: 12/10/22 This is a 77-year-old female who was admitted with strangulated rectal prolapse status post exploratory laparotomy, reduction of rectal prolapse, recto-sigmoid resection and colostomy which Gen. surgery following. Patient does have an ostomy and was noted to have gas and very small amount of stool noted. Diet is being advanced per general surgery and awaiting ostomy education. Patient is also being followed by infectious disease and is maintained on Zosyn and will likely continue with oral Augmentin on discharge. Patient with generalized weakness although feels can go home with spouse and continue with home care. Plan is for possible home in 24 hours if patient has received ostomy education. Patient is afebrile with no reported chest pain or shortness of breath. Patient tolerating diet and needs encouragement with meals. No reported nausea or vomiting noted. 12/07/2022 Patient is seen in follow-up today continues report some abdominal discomfort with position changes. Discussed avoiding IV pain medications if possible. Patient is having stool noted in the ostomy and has yet to receive education regarding care this patient will be going home with spouse. Consult was placed although unavailable until Friday. Patient continues with generalized weakness and encouraged increased activity as tolerated. Patient is afebrile with no reported chest pain or shortness of breath. Patient maintained on antibiotics and will continue short course of oral Augmentin on discharge. Patient is afebrile although mildly concerned as patient white count is slightly elevated. Patient to continue on IV antibiotics with infectious disease following and will obtain a chest x-ray. Patient denies any burning or pain or frequency with urination. Patient did have abdominal pain will obtain urinalysis. 12/08/2022 Patient is seen in follow-up today no acute issues overnight. Awaiting to receive ostomy wound care education will return demonstration prior to discharge home as patient is going home with spouse. This is a new ostomy and will be also arranging for home care. Patient did have mildly elevated white count and follow-up chest x-ray with no significant change from previous. Patient is denying chest pain or shortness of breath or cough. Patient is tolerating advanced diet to encourage meals. Infectious disease following and patient is maintained on IV antibiotics and will continue. Encouraged increased activity as tolerated. 12/09/2022 Patient is seen and evaluated in follow-up did receive some ostomy training with follow-up scheduled for today. Patient continues to have elevated white count of 16.7 maintained on antibiotics with infectious disease following and will order repeat CT abdomen to evaluate for any acute process. Patient denies abdominal discomfort is afebrile with no reported chest pain or shortness of breath. Patient reports is urinating and voiding with no difficulties and denies any pain or burning with frequency. Patient is tolerating diet with no reported nausea or vomiting noted. 12/10/2022 Patient is seen and evaluated in follow-up reports to feeling well with no further abdominal pain. Urology was consulted as there was bilateral hydronephrosis patient does have chronic history of along with cystocele. Urology feels this is all chronic acute findings and no surgical intervention needed. Patient is voiding with no difficulties and kidney functions are within normal limits and stable. Patient to follow-up with urology as needed outpatient. White count remains elevated and patient will continue on Zosyn and infectious disease recommends monitoring overnight with repeat urinalysis and follow-up labs in a.m. Patient is afebrile and tolerating regular diet with no reports of nausea vomiting. Patient is having stool in the ostomy and is surgically stable. Possible discharge in 24 hours. Review of systems: Constitutional: No reports of fatigue, fever, or chills Cardiovascular: No reports of chest pain or palpitations Respiratory: No reports of shortness of breath or cough GI: No reports of nausea, no reports of vomiting, reports gas in the ostomy with stool : No reports of dysuria or retention Neurovascular: reports of generalized weakness All medications have been reviewed PHYSICAL EXAMINATION: GENERAL: The patient is alert and oriented x4, Well developed, elderly appearing female HEENT: Pupils are round and equally reacting to light. EOMI. no scleral icterus. No conjunctival pallor. Normocephalic, atraumatic. No pharyngeal erythema. No thyromegaly. CARDIOVASCULAR: S1 and S2 muffled PULMONARY: diminished breath sounds bilaterally with no wheezing or rhonchi noted. ABDOMEN: soft. Nontender on exam. non-distended, normoactive bowel sounds. No palpable organomegaly. Ostomy noted with gas and stool MUSCULOSKELETAL: No joint swelling or deformity. EXTREMITIES: No cyanosis, clubbing, or pedal edema. NEUROLOGICAL: Gross neurological examination did not reveal any focal deficits. Diffuse weakness SKIN: No rashes. Assessment: 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, status post status post exploratory laparotomy, reduction of rectal prolapse, rectosigmoid resection and and colostomy Relative hypotension, possibly IV pain medication effect, not of significance, resolved Elevated white blood count, possibly reactive, possible intra-abdominal source of infection, maintained on empiric antibiotics Bilateral hydronephrosis with cystocele noted on CT, chronic Anemia, multifactorial as expected Chronic constipation history History of bladder prolapse GI prophylaxis DVT prophylaxis Full code Plan: Patient being followed by general surgery status post reduction of the prolapse with resection and end colostomy. Patient is having gas and stool. Patient has received ostomy education and will be going home with spouse and Homecare Diet has been advanced to regular diet per surgery and tolerating with no reported nausea or vomiting. Needs encouragement with meals as patient reports not much of an appetite Patient is empirically maintained on antibiotics with infectious disease following in the form of Zosyn and will continue. Patient continues to have elevated white count and CT abdomen was done showing hydronephrosis bilaterally and evaluated and reviewed the images reporting this is almost likely chronic and may follow-up [facility] outpatient as needed. No surgical interventions planned for this. Patient reports is voiding with no difficulties and kidney functions are within normal limits. Patient denies any burning or pain or frequency with urination. Repeat urinalysis ordered along with follow-up CBC and patient will continue on Zosyn and Diflucan has been added per ID recommendations Encouraged increased activity as tolerated. Patient plans on going home with home care Patient will discharge in 24 hours The impression and plan of care has been dictated by Doris Flores, Nurse Practitioner as directed. Dr. Xavi MD I have performed a history and examination and MDM of this patient, discussed the same with the dictator, and agree with the dictator's assessment and plan as written ,documented as a scribe. Based on total visit time, I have performed more than 50% of the visit. Objective - Vital Signs Vital signs: Vital Signs Temp 98.3 F 12/11/22 02:00 Pulse 76 12/11/22 02:00 Resp 18 12/11/22 02:00 BP 159/76 12/11/22 02:00 Pulse Ox 95 12/11/22 02:00 FiO2 21 12/10/22 08:52 Intake & Output 12/10/22 12/10/22 12/11/22 06:59 18:59 06:59 Output Total 360 90 Balance -360 -90 Output: Drainage 110 90 Abdomen 110 90 Stool 250 Other: # Voids 8 7 # Bowel Movements 1 - Labs CBC & Chem 7: 12/10/22 07:59 12/09/22 05:24 Labs: Abnormal Lab Results - Last 24 Hours (Table) 12/10/22 Range/Units 07:59 WBC 16.46 H (4.50-10.00) X 10*3/uL RBC 2.81 L (4.10-5.20) X 10*6/uL Hgb 8.3 L (12.0-15.0) d/dL Hct 25.9 L (37.2-46.3) % RDW 15.1 H (11.5-14.5) % Plt Count 529 H (140-440) X 10*3/uL Neutrophils # 13.40 H (1.80-7.70) X 10*3/uL Monocytes # 1.25 H (0.20-1.00) X 10*3/uL
[2022-12-11] MEDS: ALBUTEROL NEBULIZED 2.5 MG/3 ML INHALATION SCH ×3 (08:54→16:32)
[2022-12-11] MEDS: MOXIFLOXACIN HCL 0.5% DROPS 3 ML BTL BOTH EYES SCH ×2 (08:58→12:06)
[2022-12-11] MEDS: prednisoLONE ACETATE 1% OPHTH DROPS 5 ML BTL BOTH EYES SCH ×2 (08:59→12:04)
[2022-12-11] MEDS ORDERED: FLUCONAZOLE 100 MG TAB PO SCH (09:00)
[2022-12-11] MEDS: ENOXAPARIN 40 MG/0.4 ML SYRINGE SQ SCH (09:00)
[2022-12-11] MEDS: amLODIPine 5 MG TAB PO SCH (09:01)
[2022-12-11] MEDS: METOPROLOL TARTRATE 25 MG TAB PO SCH (09:01)
[2022-12-11] MEDS: PRAVASTATIN SODIUM 40 MG TAB PO SCH (09:01)
[2022-12-11] MEDS: PANTOPRAZOLE 40 MG/10 ML VIAL IVP SCH (09:30)
--- NOTE | 2022-12-11 11:07 | P.PN ---
Subjective Progress Note Date: 12/11/22 CHIEF COMPLAINT: Strangulated rectal prolapse HISTORY OF PRESENT ILLNESS: Postoperative day #11 status post exploratory laparotomy, reduction of rectal prolapse, rectosigmoid resection and and colostomy. Patient lying in bed comfortably. Pain controlled. Ostomy functioning. She is tolerating diet. YUMIKO drain with 100 mL serous output through the night. YUMIKO drain does keep filling with air. Afebrile. CBC for today pending. She was seen by urology and cleared for discharge. PHYSICAL EXAM: VITAL SIGNS: Reviewed. GENERAL: Well-developed in no acute distress. HEENT: No sclera icterus. Extraocular movements grossly intact. Moist buccal mucosa. Head is atraumatic, normocephalic. ABDOMEN: Soft. Nondistended. Incision site clean dry and intact. Ostomy with stool. NEUROLOGIC: Alert and oriented. Cranial nerves II through XII grossly intact. ASSESSMENT: 1. Strangulated rectal prolapse status post exploratory laparotomy, reduction of rectal prolapse, rectosigmoid resection and and colostomy 2. Leukocytosis PLAN: -Patient can be discharged from surgical standpoint when medically cleared -Continue regular diet -Discontinued YUMIKO drain before discharge -Antibiotics per ID service -DVT prophylaxis Lovenox Physician Perishable Freight Inspector note has been reviewed by physician. Signing provider agrees with the documented findings, assessment, and plan of care. Objective - Vital Signs Vital signs: Vital Signs Temp 98.4 F 12/11/22 07:12 Pulse 64 12/11/22 07:12 Resp 15 12/11/22 07:12 BP 156/69 12/11/22 07:12 Pulse Ox 95 12/11/22 07:12 FiO2 21 12/10/22 08:52 Intake & Output 12/10/22 12/11/22 12/11/22 18:59 06:59 18:59 Output Total 90 100 Balance -90 -100 Output: Drainage 90 100 Abdomen 90 100 Other: # Voids 7 10 - Labs CBC & Chem 7: 12/10/22 07:59 12/09/22 05:24 Labs: Abnormal Lab Results - Last 24 Hours (Table) 12/10/22 Range/Units 07:59 WBC 16.46 H (4.50-10.00) X 10*3/uL RBC 2.81 L (4.10-5.20) X 10*6/uL Hgb 8.3 L (12.0-15.0) d/dL Hct 25.9 L (37.2-46.3) % RDW 15.1 H (11.5-14.5) % Plt Count 529 H (140-440) X 10*3/uL Neutrophils # 13.40 H (1.80-7.70) X 10*3/uL Monocytes # 1.25 H (0.20-1.00) X 10*3/uL
--- NOTE | 2022-12-11 11:29 | P.PN ---
Subjective Progress Note Date: 12/11/22 Principal diagnosis: leukocytosis Patient is a 77-year-old female with a past medical history significant for hypertension hyperlipidemia COVID-19 bladder prolapse and UTI presenting to the hospital on 11/30/2022 for evaluation of rectal bleeding, the patient is status post laparotomy with rectosigmoid resection and end colostomy noticed to have worsening of the white count prompting this infectious disease consultation. On today's evaluation that is 12/11/2022, the patient denies any fever or any chills, , the patient is breathing comfortably on room air , the patient denies chest pain and no significant cough, patient denies nausea / vomiting and no abdominal pain and did have output in colostomy bag, the patient is feeling better and wants to go home Patient white count is pending from this morning, blood culture has been negative CT abdominal pelvis did not show any abscess however left-sided hydronephrosis and hydroureter , UA was negative Objective - Vital Signs Vital signs: Vital Signs Temp 98.4 F 12/11/22 07:12 Pulse 64 12/11/22 07:12 Resp 15 12/11/22 07:12 BP 156/69 12/11/22 07:12 Pulse Ox 95 12/11/22 07:12 FiO2 21 12/10/22 08:52 Intake & Output 12/10/22 12/11/22 12/11/22 18:59 06:59 18:59 Output Total 90 100 Balance -90 -100 Output: Drainage 90 100 Abdomen 90 100 Other: # Voids 7 10 - Exam GENERAL DESCRIPTION: Elderly female lying in bed in no distress RESPIRATORY SYSTEM: Unlabored breathing , decreased breath sounds at bases HEART: S1 S2 regular rate and rhythm ,no loud murmurs ABDOMEN: Soft , no tenderness EXTREMITIES: No edema feet - Labs CBC & Chem 7: 12/10/22 07:59 12/09/22 05:24 Labs: Abnormal Lab Results - Last 24 Hours (Table) 12/10/22 Range/Units 07:59 WBC 16.46 H (4.50-10.00) X 10*3/uL RBC 2.81 L (4.10-5.20) X 10*6/uL Hgb 8.3 L (12.0-15.0) d/dL Hct 25.9 L (37.2-46.3) % RDW 15.1 H (11.5-14.5) % Plt Count 529 H (140-440) X 10*3/uL Neutrophils # 13.40 H (1.80-7.70) X 10*3/uL Monocytes # 1.25 H (0.20-1.00) X 10*3/uL Assessment and Plan (1) Leukocytosis Current Visit: Yes Status: Acute Code(s): D72.829 - ELEVATED WHITE BLOOD CELL COUNT, UNSPECIFIED SNOMED Code(s): 608846062 Plan: 1patient with elevated white count in this patient presented to hospital with rectal bleeding and this patient is status post laparotomy with the rectosigmoid resection and diverting colostomy possible reactive for surgery versus abdominal source with the patient also noted to have a drop in hemoglobin requiring a blood transfusion. 2blood cultures are so far negative inflammatory markers are elevated. 3patient did have persistent elevated white count CT abdominal pelvis with left-sided hydroureter and hydronephrosis urology recommended no intervention UA was negative we are waiting for the WBC from this morning if the white count is trending down plan is for Augmentin and Diflucan 10 days and a close patient follow-up Dictation was produced using [employer] dictation software. please excuse any grammatical, word or spelling errors. Time with Patient: Less than 30
[2022-12-11 11:47] LABS: Basophils # (A) 0.06 X 10*3/uL (0.00-0.10); Basophils % (A) 0.4 %; Eosinophils # (A) 0.28 X 10*3/uL (0.04-0.35); HCT 24.5 % (37.2-46.3); HGB 7.9 d/dL (12.0-15.0); Lymphocytes % (A) 7.3 %; MCH 29.7 pg (27.0-32.0); MCHC 32.2 d/dL (32.0-37.0); MCV 92.1 FL (80.0-97.0); Mean Platelet Volume 10.6 FL (9.5-12.2); Monocytes # (A) 1.17 X 10*3/uL (0.20-1.00); Monocytes % (A) 8.5 %; NRBC Per 100 WBC 0 X 10*3/uL (0.00-0.01); Neutrophils # (A) 11.06 X 10*3/uL (1.80-7.70); Neutrophils % (A) 80.3 %; Platelet Count 508 X 10*3/uL (140-440); RBC 2.66 X 10*6/uL (4.10-5.20); RDW 15.1 % (11.5-14.5); WBC 13.78 X 10*3/uL (4.50-10.00)
[2022-12-11] MEDS: FOLIC ACID 1 MG TAB PO SCH (12:04)
[2022-12-11] MEDS: MULTIVITAMINS, THERA 1 EACH TAB PO SCH (12:05)
[2022-12-11] MEDS: THIAMINE 100 MG TAB PO SCH (12:05)
[2022-12-11 16:00] VITALS: BP 136/65; PULSE 67; RESP 14; TEMP 97.9
--- NOTE | 2022-12-12 22:31 | P.DS ---
Providers Date of admission: 11/30/22 12:44 Expected date of discharge: 12/11/22 Attending physician: Cosme Cordova Consults: 11/30/22 12:25 Consult Physician Stat Consulting Provider: Tirso Kerr Consult Reason/Comments: rectal prolapse with strangulation Do you want consulting provider notified?: Already Contacted 11/30/22 15:02 Consult Physician Routine Consulting Provider: Gisela Hurley Consult Reason/Comments: Medical management Do you want consulting provider notified?: Yes 12/03/22 14:18 Consult Physician Routine Consulting Provider: Mario Villegas Consult Reason/Comments: high wbc Do you want consulting provider notified?: Yes 12/09/22 14:10 Consult Physician Urgent Consulting Provider: Mitch Barfield Consult Reason/Comments: bilateral hydronephrosis, cystocele Do you want consulting provider notified?: Yes Primary care physician: Atif Mike Lds Hospital Course: Final diagnosis 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, status post exploratory laparotomy, reduction of rectal prolapse, rectosigmoid resection and end colostomy Relative hypotension, possibly IV pain medication effect, not of significance, resolved Elevated white blood count, likely reactive, intra-abdominal source of infection ruled out Bilateral hydronephrosis with cystocele noted on CT, chronic per nephrology Anemia, multifactorial as expected Chronic constipation history History of bladder prolapse GI prophylaxis DVT prophylaxis Full code Discharge disposition Patient is being discharged in a stable condition with guarded prognosis to home with home care. Patient will follow-up with Dr. Mike in the outpatient setting upon discharge. Patient is to continue with Augmentin twice daily along with Diflucan for the next 10 days per ID recommendations. Patient to follow-up with primary care provider as well as general surgery as scheduled. Recommend follow-up labs of CBC, BMP, magnesium in 2-3 days. Total time taken is greater than 35 minutes. Hospital course This is a 77-year-old female who was recently admitted with large rectal prolapse with straining collation and is status post exploratory laparotomy with reduction of rectal prolapse and rectosigmoid resection and end colostomy. Patient was seen and evaluated by general surgery underwent the surgical intervention and has been cleared for discharge to follow-up with them in 1-2 weeks. Patient did have an elevated white count most likely reactive as patient has been afebrile and infectious workup has been negative. Patient did have noted lateral hydronephrosis with cystocele most likely chronic per urology. Patient to follow-up with urology outpatient as needed. Patient has received ostomy training and will have home care in the outpatient setting. Patient has been instructed to follow-up with primary care provider as well as surgery outpatient. Patient has been cleared for discharge today. Please refer to other consultation notes for further HPI. Currently no reports of chest pain, shortness of breath, or palpitations. Patient is afebrile. No reports of nausea or vomiting and patient is tolerating diet. Patient will be discharged home today. Physical exam: Gen: This is a 77 rolled female who is awake, alert and oriented 3, well- developed, well-nourished, elderly-appearing HEENT: Head is atraumatic, normocephalic. Pupils equal, round. Sclerae is anicteric. NECK: Supple. No JVD. No lymphadenopathy. No thyromegaly. LUNGS: Clear to auscultation. No wheezes or rhonchi. No intercostal retractions. HEART: Regular rate and rhythm. No murmur. ABDOMEN: Soft. Bowel sounds are present. No masses. No tenderness. Gas and stool noted in the ostomy EXTREMITIES: No pedal edema. No calf tenderness. NEUROLOGICAL: Patient is awake, alert and oriented x3. Cranial nerves 2 through 12 are grossly intact. Please refer to medication reconciliation sheet for a list of medications. The impression and plan of care has been dictated by Doris Flores, Nurse Practitioner as directed. Dr. Xavi MD I have performed a history and examination and MDM of this patient, discussed the same with the dictator, and agree with the dictator's assessment and plan as written ,documented as a scribe. Based on total visit time, I have performed more than 50% of the visit. Patient Condition at Discharge: Fair Plan - Discharge Summary New Discharge Prescriptions: New Folic Acid 1 mg PO DAILY@1200 #30 tab Multivitamins, Thera [Multivitamin (formulary)] 1 each PO DAILY@1200 #30 tab Thiamine [Vitamin B-1] 100 mg PO DAILY@1200 #30 tab Amoxic-Pot Clav 875-125Mg [Augmentin 875-125] 1 tab PO Q12HR 10 Days #20 tab Fluconazole [Diflucan] 100 mg PO DAILY 10 Days #10 tab Continue Metoprolol Tartrate [Lopressor] 25 mg PO BID Garlic 1,000 mg PO DAILY Pravastatin Sodium [Pravachol] 40 mg PO DAILY Ascorbic Acid [Vitamin C] 500 mg PO DAILY Vitamin A 2,400 mcg PO DAILY Cholecalciferol [Vitamin D3 (25 Mcg = 1000 Iu)] 25 mcg PO DAILY prednisoLONE ACETATE 1% OPHTH [Pred Forte 1%] 1 drops BOTH EYES QID Vitamin E (Dl,Tocopheryl Acet) [Vitamin E (400 Iu = 180 mg)] 400 unit PO DAILY Moxifloxacin HCl [Moxifloxacin 0.5%] 1 drop BOTH EYES QID Glucosamine/Chondr Mack A Sod [Osteo Bi-Flex Caplet] 1 tab PO DAILY Changed amLODIPine [Norvasc] 5 mg PO BID #60 tab Discontinued Losartan Potassium 100 mg PO DAILY Vitamin B Complex 1 cap PO DAILY Discharge Medication List Metoprolol Tartrate [Lopressor] 25 mg PO BID 08/15/20 [History] Ascorbic Acid [Vitamin C] 500 mg PO DAILY 11/30/22 [History] Cholecalciferol [Vitamin D3 (25 Mcg = 1000 Iu)] 25 mcg PO DAILY 11/30/22 [History] Garlic 1,000 mg PO DAILY 11/30/22 [History] Glucosamine/Chondr Mack A Sod [Osteo Bi-Flex Caplet] 1 tab PO DAILY 11/30/22 [History] Moxifloxacin HCl [Moxifloxacin 0.5%] 1 drop BOTH EYES QID 11/30/22 [History] Pravastatin Sodium [Pravachol] 40 mg PO DAILY 11/30/22 [History] Vitamin A 2,400 mcg PO DAILY 11/30/22 [History] Vitamin E (Dl,Tocopheryl Acet) [Vitamin E (400 Iu = 180 mg)] 400 unit PO DAILY 11/30/22 [History] prednisoLONE ACETATE 1% OPHTH [Pred Forte 1%] 1 drops BOTH EYES QID 11/30/22 [History] Folic Acid 1 mg PO DAILY@1200 #30 tab 12/09/22 [Rx] Multivitamins, Thera [Multivitamin (formulary)] 1 each PO DAILY@1200 #30 tab 12/09/22 [Rx] Thiamine [Vitamin B-1] 100 mg PO DAILY@1200 #30 tab 12/09/22 [Rx] amLODIPine [Norvasc] 5 mg PO BID #60 tab 12/09/22 [Rx] Amoxic-Pot Clav 875-125Mg [Augmentin 875-125] 1 tab PO Q12HR 10 Days #20 tab 12/11/22 [Rx] Fluconazole [Diflucan] 100 mg PO DAILY 10 Days #10 tab 12/11/22 [Rx] Follow up Appointment(s)/Referral(s): Iveth Gan [NON-STAFF] - As Needed Atif Mike MD [Primary Care Provider] - 1-2 days (Office closed at time of discharge. Please call for follow-up appointment.) Tirso Kerr MD [STAFF PHYSICIAN] - 12/19/22 2:30 pm Patient Instructions/Handouts: Colostomy Care (DC), Rectal Prolapse (DC) Activity/Diet/Wound Care/Special Instructions: Activity Limited until follow-up Follow-up with primary care provider on discharge Follow-up with general surgery in one week Continue home care Continue taking medications as prescribed Monitor blood pressure and keep a diary of all readings and discuss with primary care provider on medication adjustments Discharge Disposition: HOME WITH HOME HEALTH SERVICES
--- NOTE | 2022-12-13 07:41 | CDI ---
Documentation Clarification Form Date: 12/13/2022 07:13:00 AM From: Debbie Ruiz Admit Date: 11/30/2022 12:44:00 PM Patient Name: Theresa Mendoza Visit Number: [id number] Discharge Date: 12/11/2022 04:34:00 PM ATTENTION: The Clinical Documentation Specialists (CDI) and [facility] Coding Staff appreciate your assistance in clarifying documentation. Please respond to the clarification below the line at the bottom and electronically sign. The CDI & [facility] Coding staff will review the response and follow-up if needed. Please note: Queries are made part of the Legal Health Record. If you have any questions, please contact the author of this message via ITS. Dr. Tirso Kerr There is documentation of Colostomy dysfunction in PN's 12/07 and 12/08. I do not see any treatment for colostomy dysfunction. Please clarify if patient had colostomy dysfunction. Additional clarification is requested. History/Risk Factors: Rectal prolapse with repair, resection of rectosigmoid colon and colostomy Treatment: No treatment for colostomy dysfunction Can you please clarify [fill in the question]? [ ] Patient had colostomy dysfunction after surgery [ ] Patient did not have colostomy dysfunction [ xx ] Other, please specify ____the patient's colostomy was not functioning postoperatively. This is normal immediately after surgery. Her colostomy functioned after her bowel function returned.____ [ ] Unable to determine MTDD
--- NOTE | 2022-12-17 17:15 | P.PN ---
Subjective Progress Note Date: 12/07/22 Principal diagnosis: leukocytosis Patient is a 77-year-old female with a past medical history significant for hypertension hyperlipidemia COVID-19 bladder prolapse and UTI presenting to the hospital on 11/30/2022 for evaluation of rectal bleeding, the patient is status post laparotomy with rectosigmoid resection and end colostomy noticed to have worsening of the white count prompting this infectious disease consultation. On today's evaluation that is 12/07/2022, the patient remains to be afebrile , the patient is breathing comfortably on room air , the patient denies chest pain shortness of breath or cough, patient denies having any nausea or vomiting, no abdominal pain or diarrhea , the patient did have output in the colostomy Patient white count is slightly up to 16.33 today, creatinine 0.6 Objective - Vital Signs Vital signs: Vital Signs Temp 98.2 F 12/07/22 14:07 Pulse 60 12/07/22 14:07 Resp 18 12/07/22 14:07 BP 178/77 12/07/22 14:07 Pulse Ox 95 12/07/22 14:07 FiO2 Intake & Output 12/06/22 12/07/22 12/07/22 18:59 06:59 18:59 Output Total 180 190 220 Balance -180 -190 -220 Weight 59.421 kg Output: Drainage 180 190 220 Abdomen 180 190 220 Other: Voiding Method Bedside Commode Toilet Toilet # Voids 4 3 # Bowel Movements 0 - Exam GENERAL DESCRIPTION: Elderly female lying in bed in no distress RESPIRATORY SYSTEM: Unlabored breathing , decreased breath sounds at bases HEART: S1 S2 regular rate and rhythm ,no loud murmurs ABDOMEN: Soft , no tenderness EXTREMITIES: No edema feet - Labs CBC & Chem 7: 12/07/22 05:58 12/07/22 05:58 Labs: Abnormal Lab Results - Last 24 Hours (Table) 12/07/22 12/07/22 Range/Units 05:58 05:58 WBC 16.33 H (4.50-10.00) X 10*3/uL RBC 2.86 L (4.10-5.20) X 10*6/uL Hgb 8.6 L (12.0-15.0) d/dL Hct 27.0 L (37.2-46.3) % MCHC 31.9 L (32.0-37.0) d/dL RDW 15.0 H (11.5-14.5) % Plt Count 443 H (140-440) X 10*3/uL Neutrophils # 12.44 H (1.80-7.70) X 10*3/uL Monocytes # 1.68 H (0.20-1.00) X 10*3/uL Eosinophils # 0.36 H (0.04-0.35) X 10*3/uL Carbon Dioxide 20.2 L (21.6-31.8) mmol/L BUN 8.4 L (9.0-27.0) mg/dL Calcium 8.5 L (8.7-10.3) mg/dL Microbiology - Last 24 Hours (Table) 12/03/22 21:16 Blood Culture - Preliminary Blood Assessment and Plan (1) Leukocytosis Current Visit: Yes Status: Acute Code(s): D72.829 - ELEVATED WHITE BLOOD OTIS L COUNT, UNSPECIFIED SNOMED Code(s): 140994079 Plan: 1patient with elevated white count in this patient presented to hospital with rectal bleeding and this patient is status post laparotomy with the rectosigmoid resection and diverting colostomy possible reactive for surgery versus abdominal source with the patient also noted to have a drop in hemoglobin requiring a blood transfusion. 2blood cultures are so far negative inflammatory markers are elevated. 3patient did have clinical improvement however has slight worsening of the white count which we will monitor closely, we will continue the patient on Zosyn and we'll recheck her CBC and inflammatory markers with a.m. lab Dictation was produced using [employer] dictation software. please excuse any grammatical, word or spelling errors. Time with Patient: Less than 30
== END 2022-12-11 16:34 | disposition home health service (06) | DRG 330 ==
LOC: EC 10:11 → 4SSUR 12:44
PROVIDERS: ADMIT Internal Medicine; ATTEND Internal Medicine
PROC: 30233N0 Transfusion of Autologous Red Blood Cells into Peripheral Vein, Percutaneous Approach (ICD-10-PCS; 2022-11-30)
PROC: 0DSP0ZZ Reposition Rectum, Open Approach (ICD-10-PCS; principal; 2022-11-30 13:00)
PROC: 0D1E0Z4 Bypass Large Intestine to Cutaneous, Open Approach (ICD-10-PCS; principal; 2022-11-30 13:00)
PROC: 0DTP0ZZ Resection of Rectum, Open Approach (ICD-10-PCS; principal; 2022-11-30 13:00)
PROC: 0DTN0ZZ Resection of Sigmoid Colon, Open Approach (ICD-10-PCS; principal; 2022-11-30 13:00)
DX: K62.2 Anal prolapse (principal); D62 Acute posthemorrhagic anemia; N13.30 Unspecified hydronephrosis; I95.9 Hypotension, unspecified; D72.829 Elevated white blood cell count, unspecified; K59.09 Other constipation; D64.9 Anemia, unspecified; Z86.16 Personal history of COVID-19; I10 Essential (primary) hypertension; E78.5 Hyperlipidemia, unspecified; Z71.3 Dietary counseling and surveillance; Z91.040 Latex allergy status; Z79.899 Other long term (current) drug therapy; N81.10 Cystocele, unspecified; Z87.448 Personal history of other diseases of urinary system
CPT/HCPCS: 36415; 71045; 74177; 80048; 80053; 81001; 81003; 83605; 83735; 84145; 85025; 85610; 85730; 86140; 86850; 86900; 86901; 86920; 87040; 88307; 94640; 94760; 96361; 96365; 96375; 99285

== ENCOUNTER 2023-09-20 09:05 | Emergency (ER) | payer MEDICARE ==
[2023-09-20 09:11] VITALS: RESP 16
--- NOTE | 2023-09-20 09:39 | ED ---
Female Urogenital HPI - General Chief complaint: Vaginal Bleeding Stated complaint: Blood in Urine Time Seen by Provider: 09/20/23 09:30 Source: patient, RN notes reviewed Mode of arrival: ambulatory Limitations: no limitations - History of Present Illness Initial comments: This is a 78-year-old female who presents to the emergency department for vaginal bleeding vs blood in her urine. States that this started 2 months ago and was initially occurring intermittently. Over the last 3 to 4 days this became more constant. She has already changed her pad 3 times this morning. States that she tries to do it before it gets too saturated. Describes the bleeding as appearing more like dark red blood with clots. Not taking any blood thinners. Denies any pain in the abdomen. She has some mild back pain. She had a total hysterectomy in 1977. She does note having a bladder prolapse that is not currently being treated. MD Complaint: vaginal bleeding - Related Data Home Medications Medication Instructions Recorded Confirmed Metoprolol Tartrate [Lopressor] 25 mg PO BID 08/15/20 11/30/22 Ascorbic Acid [Vitamin C] 500 mg PO DAILY 11/30/22 11/30/22 Cholecalciferol [Vitamin D3 (25 25 mcg PO DAILY 11/30/22 11/30/22 Mcg = 1000 Iu)] Garlic 1,000 mg PO DAILY 11/30/22 11/30/22 Glucosamine/Chondr Mack A Sod [Osteo 1 tab PO DAILY 11/30/22 11/30/22 Bi-Flex Caplet] Moxifloxacin HCl [Moxifloxacin 1 drop BOTH EYES QID 11/30/22 11/30/22 0.5%] Pravastatin Sodium [Pravachol] 40 mg PO DAILY 11/30/22 11/30/22 Vitamin A 2,400 mcg PO DAILY 11/30/22 11/30/22 Vitamin E (Dl,Tocopheryl Acet) 400 unit PO DAILY 11/30/22 11/30/22 [Vitamin E (400 Iu = 180 mg)] prednisoLONE ACETATE 1% OPHTH 1 drops BOTH EYES QID 11/30/22 11/30/22 [Pred Forte 1%] Previous Rx's Medication Instructions Recorded Folic Acid 1 mg PO DAILY@1200 #30 tab 12/09/22 Multivitamins, Thera [Multivitamin 1 each PO DAILY@1200 #30 tab 12/09/22 (formulary)] Thiamine [Vitamin B-1] 100 mg PO DAILY@1200 #30 tab 12/09/22 amLODIPine [Norvasc] 5 mg PO BID #60 tab 12/09/22 Amoxic-Pot Clav 875-125Mg 1 tab PO Q12HR 10 Days #20 tab 12/11/22 [Augmentin 875-125] Fluconazole [Diflucan] 100 mg PO DAILY 10 Days #10 tab 12/11/22 cefUROXime axetiL [Ceftin] 500 mg PO BID 7 Days #14 tab 09/20/23 Allergies Allergy/AdvReac Type Severity Reaction Status Date / Time adhesive tape Allergy Rash/Hives Verified 11/30/22 12:43 latex Allergy Rash/Hives Verified 11/30/22 14:01 Review of Systems ROS Statement: Those systems with pertinent positive or pertinent negative responses have been documented in the HPI. ROS Other: All systems not noted in ROS Statement are negative. 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 History of Any Multi-Drug Resistant Organisms: None Reported Past Surgical History: Adenoidectomy, Hysterectomy, Joint Replacement, Tonsillectomy Additional Past Surgical History / Comment(s): Left hip surgery Past Anesthesia/Blood Transfusion Reactions: No Reported Reaction Past Psychological History: No Psychological Hx Reported Smoking Status: Never smoker Past Alcohol Use History: None Reported Past Drug Use History: None Reported - Past Family History Mother Family Medical History: Cancer Sister(s) Family Medical History: Cancer General Exam Limitations: no limitations General appearance: alert, in no apparent distress Head exam: Present: atraumatic, normocephalic, normal inspection Respiratory exam: Present: normal lung sounds bilaterally. Absent: respiratory distress, wheezes, rales, rhonchi, stridor Cardiovascular Exam: Present: regular rate, normal rhythm, normal heart sounds. Absent: systolic murmur, diastolic murmur, rubs, gallop, clicks GI/Abdominal exam: Present: soft, normal bowel sounds. Absent: distended, tenderness, guarding, rebound, rigid External exam: Present: other (Fairly prominent cystocele. There is an area in the vaginal mucosa that appears to be a superficial vein that may have been recently bleeding. There is otherwise no active bleeding.) Neurological exam: Present: alert, oriented X3, CN II-XII intact Psychiatric exam: Present: normal affect, normal mood Skin exam: Present: warm, dry Course Vital Signs 09/20/23 09/20/23 09/20/23 09:08 11:11 14:12 Temperature 98.1 F 98.0 F Pulse Rate 60 53 L 58 L Respiratory 16 16 16 Rate Blood Pressure 163/76 143/64 142/72 O2 Sat by Pulse 99 100 99 Oximetry Medical Decision Making - Medical Decision Making This is a 78 year old female who presents to the emergency department for vaginal bleeding. Was pt. sent in by a medical professional or institution? @ -No Did you speak to anyone other than the patient for history? @ -No Did you review nursing and triage notes? @ -Yes, and I agree, it is accurate with regards to the patient's symptoms. Were old charts reviewed? @ -No Differential Diagnosis? @ -Differential Vaginal Bleeding: Spontaneous , threatened , molar , ectopic , incompetent cervix, placenta previa, uterine rupture, dysfunctional uterine bleeding, hemorrhage, uterine fibroids, malignancy, coagulopathy, PID, cervicitis, adenomyosis, vaginal trauma, this is not meant to be an all- inclusive list. EKG interpreted by me (3pts min.)? @ -Not obtained X-rays interpreted by me (1pt min.)? @ -Not obtained CT interpreted by me (1pt min.)? @ -CT scan of the abdomen and pelvis obtained. My interpretation identifies a mass in the left renal pelvis. U/S interpreted by me (1pt. min.)? @ -Not obtained What testing was considered but not performed? (CT, X-rays, U/S, labs)? Why? @ -None What meds were considered but not given? Why? @ -None Did you discuss the management of the patient with other professionals? @ -No Did you reconcile home meds? @ -No Was smoking cessation discussed for >3mins.? @ -No Was critical care preformed (if so, how long)? @ -No Were there social determinants of health that impacted care today? How? (Homelessness, low income, unemployed, alcoholism, drug addiction, transportation, low edu. Level, literacy, decrease access to med. care, [facility], rehab)? @ -No Was there de-escalation of care discussed even if they declined? (Discuss DNR or withdrawal of care, Hospice)? @ -No What co-morbidities impacted this encounter? (DM, HTN, Smoking, COPD, CAD, Cancer, CVA, Hep., AIDS, mental health diagnosis, sleep apnea, morbid obesity)? @ -Bladder prolapse Was patient admitted / discharged? @ -Discharged. On exam patient had a very prominent grade 3 cystocele. She had no active bleeding on exam, however there was what appeared to be a potential superficial vein or other discolored linear area in the vaginal mucosa underneath the cystocele that may be a potential source of recent active bleeding. Lab work demonstrates mild leukocytosis and was otherwise unremarkabl e. Urinalysis demonstrated a large amount of blood making full evaluation incomplete. However, this was suggestive of infection. Urine sent for culture. CT scan of the abdomen and pelvis obtained demonstrating redemonstration of severe left hydronephrosis and mild to moderate right hydronephrosis with suspicion for underlying UPJ stenosis. Additionally, there is a dilated left renal pelvis containing a heterogeneous masslike density highly concerning for malignancy. The cystocele is suspected to be a contributing factor to the hydronephrosis. Additionally, she has concern for a moderate to large hiatal hernia with a thickened appearance that could be inflammatory or neoplastic. Findings reviewed with the patient. Patient has already had a total hysterectomy and given these findings the bleeding is most likely coming from the urethra. However there was again that area in the vaginal mucosa that may have also been causing some mild bleeding. Given that patient's symptoms were fairly tolerable, she was comfortable with discharge home. She was given a dose of Rocephin in the emergency department and a prescription for cefuroxime was provided. Advised that she needs to follow-up with urology given these concerning CT scan findings and their information was provided. Also advised very close follow-up with her primary care provider. She was discharged home in stable condition with strict return parameters. Undiagnosed new problem with uncertain prognosis? @ -None Drug Therapy requiring intensive monitoring for toxicity (Heparin, Nitro, Insulin, Cardizem)? @ -None Were any procedures done? @ -None Diagnosis/symptom? @ -UTI, hematuria, left renal pelvis mass Acute, or Chronic, or Acute on Chronic? @ -Acute Uncomplicated (without systemic symptoms) or Complicated (systemic symptoms)? @ -Uncomplicated Side effects of treatment? @ -None Exacerbation, Progression, or Severe Exacerbation] @ -Progression of hematuria Poses a threat to life or bodily function? @ -This will depend on the ultimate cause of the mass and how it progresses Return precautions reviewed in depth, the patient is instructed to return to the emergency department with any new, worsening, or concerning symptoms. Patient verbalized understanding. This case was discussed in detail with the attending ED physician, Dr. Hdez. Presentation, findings, and treatment plan discussed in detail as well. - Lab Data Result diagrams: 09/20/23 09:26 09/20/23 09:26 Lab Results 09/20/23 09/20/23 09/20/23 Range/Units 09: 09: 09: WBC 10.8 H (3.8-10.6) k/uL RBC 3.53 L (3.80-5.40) m/uL Hgb 10.7 L (11.4-16.0) gm/dL Hct 33.4 L (34.0-46.0) % MCV 94.7 (80.0-100.0) fL MCH 30.3 (25.0-35.0) pg MCHC 32.0 (31.0-37.0) g/dL RDW 13.0 (11.5-15.5) % Plt Count 294 (150-450) k/uL MPV 8.1 Neutrophils % 83 % Lymphocytes % 7 % Monocytes % 7 % Eosinophils % 1 % Basophils % 1 % Neutrophils # 8.9 H (1.3-7.7) k/uL Lymphocytes # 0.8 L (1.0-4.8) k/uL Monocytes # 0.8 (0-1.0) k/uL Eosinophils # 0.1 (0-0.7) k/uL Basophils # 0.1 (0-0.2) k/uL PT 10.9 (10.0-12.5) sec INR 1.0 (<1.2) APTT 28.0 (22.0-30.0) sec Sodium 136 L (137-145) mmol/L Potassium 4.6 (3.5-5.1) mmol/L Chloride 108 H (98-107) mmol/L Carbon Dioxide 24 (22-30) mmol/L Anion Gap 4 mmol/L BUN 17 (7-17) mg/dL Creatinine 0.51 L (0.52-1.04) mg/dL Est GFR (CKD-EPI)AfAm >90 (>60 ml/min/1.73 sqM) Est GFR (CKD-EPI)NonAf >90 (>60 ml/min/1.73 sqM) Glucose 115 H (74-99) mg/dL Plasma Lactic Acid Jeff (0.7-2.0) mmol/L Calcium 9.4 (8.4-10.2) mg/dL Total Bilirubin 0.9 (0.2-1.3) mg/dL AST 28 (14-36) U/L ALT 12 (4-34) U/L Alkaline Phosphatase 74 (38-126) U/L Total Protein 6.2 L (6.3-8.2) g/dL Albumin 3.7 (3.5-5.0) g/dL Urine Color Urine Appearance (Clear) Urine RBC (0-5) /hpf Urine WBC (0-5) /hpf Urine Bacteria (None) /hpf 09/20/23 09/20/23 Range/Units 09:34 09:51 WBC (3.8-10.6) k/uL RBC (3.80-5.40) m/uL Hgb (11.4-16.0) gm/dL Hct (34.0-46.0) % MCV (80.0-100.0) fL MCH (25.0-35.0) pg MCHC (31.0-37.0) g/dL RDW (11.5-15.5) % Plt Count (150-450) k/uL MPV Neutrophils % % Lymphocytes % % Monocytes % % Eosinophils % % Basophils % % Neutrophils # (1.3-7.7) k/uL Lymphocytes # (1.0-4.8) k/uL Monocytes # (0-1.0) k/uL Eosinophils # (0-0.7) k/uL Basophils # (0-0.2) k/uL PT (10.0-12.5) sec INR (<1.2) APTT (22.0-30.0) sec Sodium (137-145) mmol/L Potassium (3.5-5.1) mmol/L Chloride (98-107) mmol/L Carbon Dioxide (22-30) mmol/L Anion Gap mmol/L BUN (7-17) mg/dL Creatinine (0.52-1.04) mg/dL Est GFR (CKD-EPI)AfAm (>60 ml/min/1.73 sqM) Est GFR (CKD-EPI)NonAf (>60 ml/min/1.73 sqM) Glucose (74-99) mg/dL Plasma Lactic Acid Jeff 1.5 (0.7-2.0) mmol/L Calcium (8.4-10.2) mg/dL Total Bilirubin (0.2-1.3) mg/dL AST (14-36) U/L ALT (4-34) U/L Alkaline Phosphatase (38-126) U/L Total Protein (6.3-8.2) g/dL Albumin (3.5-5.0) g/dL Urine Color Red Urine Appearance CLOUDY (Clear) Urine RBC >182 H (0-5) /hpf Urine WBC >182 H (0-5) /hpf Urine Bacteria Many H (None) /hpf - Radiology Data Radiology results: report reviewed, image reviewed Disposition Clinical Impression: UTI (urinary tract infection), Hematuria Disposition: HOME SELF-CARE Instructions (If sedation given, give patient instructions): Urinary Tract Infection in Women (ED) Additional Instructions: Return to the emergency department with any new, worsening, or concerning symptoms. Take the antibiotic as prescribed for 7 days. Contact the urologist listed below for a follow-up appointment. Let them know that you were seen in [facility] emergency department and on the CT scan there was concern for a masslike density in the left renal pelvis. They will schedule you for a follow-up appointment. Follow up with your primary care provider in 1-2 days. Prescriptions: cefUROXime axetiL [Ceftin] 500 mg PO BID 7 Days #14 tab Is patient prescribed a controlled substance at d/c from ED?: No Referrals: Atif Mike MD [Primary Care Provider] - 1-2 days Mitch Barfield MD [STAFF PHYSICIAN] - 1-2 days Time of Disposition: 12:22
[2023-09-20 10:01] LABS: Basophils # (A) 0.1 k/uL (0-0.2); Basophils % (A) 1 %; Eosinophils # (A) 0.1 k/uL (0-0.7); Eosinophils % (A) 1 %; HCT 33.4 % (34.0-46.0); HGB 10.7 gm/dL (11.4-16.0); Lymphocytes # (A) 0.8 k/uL (1.0-4.8); Lymphocytes % (A) 7 %; MCH 30.3 pg (25.0-35.0); MCV 94.7 fL (80.0-100.0); Mean Platelet Volume 8.1; Monocytes # (A) 0.8 k/uL (0-1.0); Monocytes % (A) 7 %; Neutrophils # (A) 8.9 k/uL (1.3-7.7); Neutrophils % (A) 83 %; Platelet Count 294 k/uL (150-450); RBC 3.53 m/uL (3.80-5.40); WBC 10.8 k/uL (3.8-10.6)
[2023-09-20 10:10] LABS: Prothrombin Time 10.9 sec (10.0-12.5)
[2023-09-20 10:11] LABS: ALT 12 U/L (4-34); African American GFR (CKD) >90 (>60 ml/min/1.73 sqM); Albumin 3.7 g/dL (3.5-5.0); Anion Gap 4 mmol/L; Blood Urea Nitrogen 17 mg/dL (7-17); Calcium 9.4 mg/dL (8.4-10.2); Carbon Dioxide 24 mmol/L (22-30); Chloride 108 mmol/L (98-107); Glucose 115 mg/dL (74-99); Non-African American GFR(CKD) >90 (>60 ml/min/1.73 sqM); Sodium 136 mmol/L (137-145); Total Bilirubin 0.9 mg/dL (0.2-1.3); Total Protein 6.2 g/dL (6.3-8.2)
[2023-09-20 10:14] LABS: AST 28 U/L (14-36); Alkaline Phosphatase 74 U/L (38-126); Potassium 4.6 mmol/L (3.5-5.1)
[2023-09-20 10:28] LABS: Appearance,Urine CLOUDY (Clear); Color,Urine Red
[2023-09-20 10:44] LABS: Bacteria,Urine Many /hpf; RBC,Urine >182 /hpf (0-5); WBC,Urine >182 /hpf (0-5)
--- NOTE | 2023-09-20 12:06 | CT ---
EXAMINATION TYPE: CT abdomen pelvis w con CT DLP: 707.9 mGycm, Automated exposure control for dose reduction was used. DATE OF EXAM: 09/20/2023 11:07 AM COMPARISON: 12/09/2022 CLINICAL INDICATION:Female, 78 years old with history of Abdominal pain, vaginal bleeding vs hematuri a; Abdominal pain, vaginal bleeding vs hematuria. TECHNIQUE: Axial CT of the abdomen and pelvis. Sagittal and coronal reformats were created on a [employer] workstation. Contrast used:100ml mL of Isovue 300 with IV Contrast, (none if empty) Oral contrast used: without Oral Contrast (none if empty) FINDINGS: LOWER CHEST: Mild bibasilar stranding suggesting scarring or atelectasis. 2-3 mm nodularity in the li ngula, could represent granulomatous disease. Moderate to large hiatal hernia with thickening of the wall. ABDOMEN LIVER: Overall decreased attenuation of the liver with some patchy geographic areas of higher attenua tion, consistent with hepatic steatosis with areas of fatty sparing. Stable small low-attenuation nod ule in the left lobe image 17. No superimposed mass identified. GALLBLADDER AND BILE DUCTS: Unremarkable gallbladder. No biliary ductal dilatation. PANCREAS: Somewhat atrophic without acute finding. SPLEEN: Unremarkable. ADRENAL GLANDS: Mildly thickened appearing left adrenal without clearcut mass.. KIDNEYS AND URETERS: There is persistence of a severely dilated left renal pelvis and calyces, with r elatively abrupt transition to a smaller caliber ureter which is however also dilated. Findings could reflect hydronephrosis in the setting of background UPJ stenosis. Hydroureter again extends to the b ladder, and the presence of cystocele/fallen bladder may be contributory. Now present within the dila tevin renal pelvis there is heterogeneous masslike density which measures up to 7.1 x 6.8 cm axially an d 6.9 cm craniocaudally. This is highly suspicious for malignancy, likely of urothelial origin. Renal parenchymal less likely. Some of this could be blood clot. Left renal vein shows no clear evidence o f tumor thrombus. Right kidney shows mild to moderate dilatation of the renal pelvis and calyces with relatively abrupt transition to smaller caliber ureter in the region of the UPJ, suggesting relative UPJ stenosis. The ureter however is mildly dilated to the level of the bladder. This also may reflect hydronephrosis i n the setting of UPJ stenosis. A few small renal cortical cysts are also suggested. PELVIS BLADDER: There is significant pelvic floor laxity with large cystocele and significant portion of the bladder protruding to the perineum. REPRODUCTIVE: Reproductive organs not seen, likely removed. ABDOMEN & PELVIS STOMACH AND BOWEL: Stomach and small bowel are nondistended there is no evidence of obstruction. Mode rate amount of stool in the colon and a left lower quadrant ostomy is redemonstrated. What may be th e appendix looks unremarkable. PERITONEUM/RETROPERITONEUM: No evidence of pneumoperitoneum or free fluid. Postoperative changes al antwon the anterior abdominal wall. VASCULATURE: Moderate atherosclerotic calcification of the aorta and iliac arteries. Aorta is tortuou s and follows the spinal curvature without evidence of AAA or dissection. Origins of the mesenteric a nd renal arteries appear patent. The proximal renal arteries appear mildly narrowed. Portal veins ar e enhancing. Splenic vein and SMV are patent. LYMPH NODES: No nodes are seen to be enlarged by CT criteria. SOFT TISSUE/ABDOMINAL WALL: Small soft tissue density posterior to the coccyx may represent scarred d own previous sacral decubitus ulcer. No acute soft tissue abnormality is seen. MUSCULOSKELETAL: Bones are severely demineralized, this may represent osteoporosis. There are several small lytic appearing areas seen throughout the visualized spine, as well as a 1.8 cm lytic focus in the left iliac bone near the SI joint, and a 1.2 cm focus in the right iliac bone which could reflec t metastases. Chronic changes of the right hip with complete erosion of the femoral head and neck and broadened appearance of the acetabulum again noted. The normal hip joint is thereby disassociated. Left total hip arthroplasty is in place. Moderate to severe degenerative changes of the spine with pr ominent lumbar levocurvature. IMPRESSION: 1. Redemonstration of severe left hydronephrosis and mild to moderate right hydronephrosis, with latonya picion for underlying UPJ stenoses. The degree of hydroureter is less than the degree of renal pelvis dilatation. 2. Within the dilated left renal pelvis there is heterogeneous masslike density highly concerning fo r malignancy, probably urothelial. 3. Large cystocele/fallen bladder. This likely causes or contributes to the hydronephrosis. 4. Moderate to large hiatal hernia with thickened appearance of the wall. This could be inflammatory or neoplastic. 5. Hepatic steatosis with areas of fatty sparing. Stable small low-density nodule in the left hepati c lobe is likely benign. 6. Severe osteopenia. Nonspecific small lytic areas could be related to osteoporosis, metastasis, or combination. 7. Other chronic and likely incidental findings, as described above.
[2023-09-20] MEDS: cefTRIAXone IN SWFI 1,000 MG/10 ML SYRINGE IVP STA (14:11)
[2023-09-20 15:40] VITALS: BP 142/72; PULSE 58; TEMP 98
== END 2023-09-20 14:15 | disposition home or self-care (01) ==
LOC: EC 09:05
DX: N39.0 Urinary tract infection, site not specified (principal); N28.89 Other specified disorders of kidney and ureter; Z91.040 Latex allergy status; Z91.048 Other nonmedicinal substance allergy status; Z87.448 Personal history of other diseases of urinary system
CPT/HCPCS: 99284 ×2; 96374 ×2; 36415; 80053; 83605; 85025; 85610; 85730; 81001; 87086; 74177; J0696; Q9967

== ENCOUNTER 2024-01-28 14:34 | Emergency (ER) | payer MEDICARE ==
--- NOTE | 2024-01-28 15:27 | ED ---
General Adult HPI - General Chief complaint: Recheck/Abnormal Lab/Rx Stated complaint: Abd labs Time Seen by Provider: 01/28/24 15:02 Source: patient Mode of arrival: wheelchair Limitations: no limitations - History of Present Illness Initial comments: Dictation was produced using [employer] dictation software. please excuse any grammatical, word or spelling errors. Chief Complaint: 78-year-old female sent to the emergency department for anemia History of Present Illness: Patient 78-year-old female she has past medical history of dyslipidemia and hypertension. 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 Patient went for routine visit to see her primary care doctor yesterday had some blood work drawn. She found out that her hemoglobin was low measuring in the fives. She was sent to the ER for further care. Denies any black stools. Patient states she has been anemic in the past. Patient states she feels a little weak however does not have any focal symptoms. The ROS documented in this emergency department record has been reviewed and confirmed by me. Those systems with pertinent positive or negative responses have been documented in the HPI. All other systems are other negative and/or noncontributory. - Related Data Home Medications Medication Instructions Recorded Confirmed Metoprolol Tartrate [Lopressor] 25 mg PO BID 08/15/20 11/30/22 Ascorbic Acid [Vitamin C] 500 mg PO DAILY 11/30/22 11/30/22 Cholecalciferol [Vitamin D3 (25 25 mcg PO DAILY 11/30/22 11/30/22 Mcg = 1000 Iu)] Garlic 1,000 mg PO DAILY 11/30/22 11/30/22 Glucosamine/Chondr Mack A Sod [Osteo 1 tab PO DAILY 11/30/22 11/30/22 Bi-Flex Caplet] Moxifloxacin HCl [Moxifloxacin 1 drop BOTH EYES QID 11/30/22 11/30/22 0.5%] Pravastatin Sodium [Pravachol] 40 mg PO DAILY 11/30/22 11/30/22 Vitamin A 2,400 mcg PO DAILY 11/30/22 11/30/22 Vitamin E (Dl,Tocopheryl Acet) 400 unit PO DAILY 11/30/22 11/30/22 [Vitamin E (400 Iu = 180 mg)] prednisoLONE ACETATE 1% OPHTH 1 drops BOTH EYES QID 11/30/22 11/30/22 [Pred Forte 1%] Previous Rx's Medication Instructions Recorded Folic Acid 1 mg PO DAILY@1200 #30 tab 12/09/22 Multivitamins, Thera [Multivitamin 1 each PO DAILY@1200 #30 tab 12/09/22 (formulary)] Thiamine [Vitamin B-1] 100 mg PO DAILY@1200 #30 tab 12/09/22 amLODIPine [Norvasc] 5 mg PO BID #60 tab 12/09/22 Amoxic-Pot Clav 875-125Mg 1 tab PO Q12HR 10 Days #20 tab 12/11/22 [Augmentin 875-125] Fluconazole [Diflucan] 100 mg PO DAILY 10 Days #10 tab 12/11/22 cefuroxime axetiL [Ceftin] 500 mg PO BID 7 Days #14 tab 09/20/23 Allergies Allergy/AdvReac Type Severity Reaction Status Date / Time adhesive tape Allergy Rash/Hives Verified 11/30/22 12:43 latex Allergy Rash/Hives Verified 11/30/22 14:01 wool Allergy Rash/Hives Verified 01/28/24 14:41 Review of Systems ROS Statement: Those systems with pertinent positive or pertinent negative responses have been documented in the HPI. ROS Other: All systems not noted in ROS Statement are negative. 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 History of Any Multi-Drug Resistant Organisms: None Reported Past Surgical History: Adenoidectomy, Hysterectomy, Joint Replacement, Tonsillectomy Additional Past Surgical History / Comment(s): Left hip surgery Past Anesthesia/Blood Transfusion Reactions: No Reported Reaction Past Psychological History: No Psychological Hx Reported Smoking Status: Never smoker Past Alcohol Use History: None Reported Past Drug Use History: None Reported - Past Family History Mother Family Medical History: Cancer Sister(s) Family Medical History: Cancer General Exam - General Exam Comments Initial Comments: PHYSICAL EXAM: General Impression: Alert and oriented x3, not in acute distress HEENT: Normocephalic atraumatic, extra-ocular movements intact, pupils equal and reactive to light bilaterally, mucous membranes moist. Cardiovascular: Heart regular rate and rhythm Chest: Able to complete full sentences, no retractions, no tachypnea Abdomen: abdomen soft, non-tender, non-distended, no organomegaly, ostomy bag contents not melanotic or bloody Musculoskeletal: Pulses present and equal in all extremities, no peripheral edema Motor: no focal deficits noted Neurological: CN II-XII grossly intact, no focal motor or sensory deficits noted Skin: Intact with no visualized rashes Psych: Normal affect and mood Limitations: no limitations Course Vital Signs 01/28/24 01/28/24 01/28/24 14:39 15:15 17:30 Temperature 98.3 F 97.9 F Pulse Rate 92 84 73 Respiratory 22 20 18 Rate Blood Pressure 169/62 154/79 147/66 O2 Sat by Pulse 95 100 Oximetry 01/28/24 01/28/24 01/28/24 17:40 17:50 18:00 Temperature Pulse Rate 82 87 79 Respiratory 18 18 16 Rate Blood Pressure 162/78 158/75 162/76 O2 Sat by Pulse 100 100 100 Oximetry EKG Findings - EKG Comments: EKG Findings:: My EKG interpretation: Ventricular rate 77, sinus rhythm, OH in 173, QRS 82, QTc 4 9. No OH prolongation, no QTC prolongation, no ST or T-wave changes noted. Overall, this EKG is unremarkable Medical Decision Making - Medical Decision Making Was pt. sent in by a medical professional or institution (, PA, FOREST FIRE PREVENTION SPECIALIST, urgent care, hospital, or senior care...) When possible be specific @ -No Did you speak to anyone other than the patient for history (EMS, parent, family, police, friend...)? What history was obtained from this source @ -No Did you review nursing and triage notes (agree or disagree)? Why? @ -I reviewed and agree with nursing and triage notes Were old charts reviewed (outside hosp., previous admission, EMS record, old EKG, old radiological studies, urgent care reports/EKG's, senior care records)? Report findings @ -No old charts were reviewed Differential Diagnosis (chest pain, altered mental status, abdominal pain women, abdominal pain men, vaginal bleeding, musculoskeletal, weakness, fever, dyspnea, syncope, headache, dizziness, GI bleed, back pain, seizure, CVA, palpatations, mental health)? @ -Differential GI Bleed: Esophageal varices, aortoenteric fistula, Dianna-Lim, gastritis, peptic ulcer disease, diverticulosis, inflammatory bowel disease, hemorrhoids, fissure, colitis, malignancy, Meckel's diverticulum, this is not meant to be an all- inclusive list. EKG interpreted by me (3pts min.). @ -See above X-rays interpreted by me (1pt min.). @ -None done CT interpreted by me (1pt min.). @ -None done U/S interpreted by me (1pt. min.). @ -None done What testing was considered but not performed or refused? (CT, X-rays, U/S, labs)? Why? @ -None What meds were considered but not given or refused? Why? @ -None Was smoking cessation discussed for >3mins.? @ -No Were there social determinants of health that impacted care today? How? (Homelessness, low income, unemployed, alcoholism, drug addiction, transportation, low edu. Level, literacy, decrease access to med. care, group home, rehab)? @ -No Was there de-escalation of care discussed even if they declined (Discuss DNR or withdrawal of care, Hospice)? DNR status @ -No What co-morbidities impacted this encounter? (DM, HTN, Smoking, COPD, CAD, Cancer, CVA, ARF, Chemo, Hep., AIDS, mental health diagnosis, sleep apnea, morbid obesity)? @ -None Was patient admitted / discharged? Hospital course, mention meds given and route, prescriptions, significant lab abnormalities, going to OR and other pertinent info. @ -78-year-old female presents to the emergency department for anemia. She had abnormal outpatient labs. Vital signs are stable. She does report some symptoms of anemia. Hemoglobin rechecked. 5.8. There is appear to be a c omponent of microcytic hypochromic anemia. Coag panel is unremarkable. Laboratory evaluation obtained. Slight hyponatremia. Stool occult blood is positive. Patient given Protonix will be [facility] to [facility] for GI evaluation. Patient given 2 units of PRBC Did you discuss the management of the patient with other professionals (professionals i.e. , PA, FOREST FIRE PREVENTION SPECIALIST, lab, RT, psych nurse, director social, forensic pathologist, teacher, food safety officer, outpatient case manager)? Give summary @ -Yes spoke with Dr. Kim for transfer Was critical care preformed (if so, how long)? @ -Yes, 33 minutes Undiagnosed new problem with uncertain prognosis? @ -No Drug Therapy requiring intensive monitoring for toxicity (Heparin, Nitro, Insulin, Cardizem)? @ -No Were any procedures done? @ -No Diagnosis/symptom? Acute, or Chronic, or Acute on Chronic? Uncomplicated (without systemic symptoms) or Complicated (systemic symptoms)? @ -Acute blood loss anemia Side effects of treatment? @ -No Exacerbation, Progression, or Severe Exacerbation? @ -No Poses a threat to life or bodily function? How? (Chest pain, USA, [place], pneumonia, PE, COPD, DKA, ARF, appy, cholecystitis, CVA, Diverticulitis, Homicidal, Suicidal, threat to staff... and all critical care pts) @ -yes - Lab Data Result diagrams: 01/28/24 15:31 01/28/24 15:31 Lab Results 01/28/24 01/28/24 01/28/24 Range/Units 15:15 15:25 15:31 WBC 7.6 (3.8-10.6) k/uL RBC 2.81 L (3.80-5.40) m/uL Hgb 5.8 L* (11.4-16.0) gm/dL Hct 19.9 L* (34.0-46.0) % MCV 70.8 L (80.0-100.0) fL MCH 20.6 L (25.0-35.0) pg MCHC 29.0 L (31.0-37.0) g/dL RDW 14.8 (11.5-15.5) % Plt Count 438 (150-450) k/uL MPV 7.5 Neutrophils % 93 % Lymphocytes % 4 % Monocytes % 2 % Eosinophils % 0 % Basophils % 0 % Neutrophils # 7.1 (1.3-7.7) k/uL Lymphocytes # 0.3 L (1.0-4.8) k/uL Monocytes # 0.1 (0-1.0) k/uL Eosinophils # 0.0 (0-0.7) k/uL Basophils # 0.0 (0-0.2) k/uL Hypochromasia Marked Poikilocytosis Slight Microcytosis Moderate PT (10.0-12.5) sec INR (<1.2) APTT (22.0-30.0) sec Sodium (137-145) mmol/L Potassium (3.5-5.1) mmol/L Chloride (98-107) mmol/L Carbon Dioxide (22-30) mmol/L Anion Gap mmol/L BUN (7-17) mg/dL Creatinine (0.52-1.04) mg/dL Est GFR (CKD-EPI)AfAm (>60 ml/min/1.73 sqM) Est GFR (CKD-EPI)NonAf (>60 ml/min/1.73 sqM) Glucose (74-99) mg/dL Calcium (8.4-10.2) mg/dL Total Bilirubin (0.2-1.3) mg/dL AST (14-36) U/L ALT (4-34) U/L Alkaline Phosphatase (38-126) U/L Total Protein (6.3-8.2) g/dL Albumin (3.5-5.0) g/dL Stool Occult Blood Positive H (Negative) Blood Type O Positive Blood Type Recheck O Pos Bld Type Recheck Status No Antibody Screen NEGATIVE Crossmatch See Detail Spec Expiration Date 01/31/2024 - 231401/28/24 01/28/24 Range/Units 15:31 16:33 WBC (3.8-10.6) k/uL RBC (3.80-5.40) m/uL Hgb (11.4-16.0) gm/dL Hct (34.0-46.0) % MCV (80.0-100.0) fL MCH (25.0-35.0) pg MCHC (31.0-37.0) g/dL RDW (11.5-15.5) % Plt Count (150-450) k/uL MPV Neutrophils % % Lymphocytes % % Monocytes % % Eosinophils % % Basophils % % Neutrophils # (1.3-7.7) k/uL Lymphocytes # (1.0-4.8) k/uL Monocytes # (0-1.0) k/uL Eosinophils # (0-0.7) k/uL Basophils # (0-0.2) k/uL Hypochromasia Poikilocytosis Microcytosis PT 10.6 (10.0-12.5) sec INR 1.0 (<1.2) APTT 21.6 L (22.0-30.0) sec Sodium 131 L (137-145) mmol/L Potassium 5.4 H (3.5-5.1) mmol/L Chloride 103 (98-107) mmol/L Carbon Dioxide 22 (22-30) mmol/L Anion Gap 6 mmol/L BUN 21 H (7-17) mg/dL Creatinine 0.89 (0.52-1.04) mg/dL Est GFR (CKD-EPI)AfAm 72 (>60 ml/min/1.73 sqM) Est GFR (CKD-EPI)NonAf 63 (>60 ml/min/1.73 sqM) Glucose 139 H (74-99) mg/dL Calcium 9.6 (8.4-10.2) mg/dL Total Bilirubin 0.3 (0.2-1.3) mg/dL AST 24 (14-36) U/L ALT 12 (4-34) U/L Alkaline Phosphatase 98 (38-126) U/L Total Protein 7.0 (6.3-8.2) g/dL Albumin 4.2 (3.5-5.0) g/dL Stool Occult Blood (Negative) Blood Type Blood Type Recheck Bld Type Recheck Status Antibody Screen Crossmatch Spec Expiration Date Disposition Clinical Impression: GI bleed Disposition: OTHER INSTITUTION NOT DEFINED Condition: Serious Referrals: Atif Mike MD [Primary Care Provider] - 1-2 days - Out of Hospital Transfer - Req. Specs Out of Hospital Transfer - Requested Specifics: Other Emergency [facility] ([facility])
[2024-01-28 15:42] LABS: Basophils % (A) 0 %; Eosinophils % (A) 0 %; Hypochromasia Marked; Lymphocytes # (A) 0.3 k/uL (1.0-4.8); Lymphocytes % (A) 4 %; MCH 20.6 pg (25.0-35.0); MCV 70.8 fL (80.0-100.0); Mean Platelet Volume 7.5; Microcytosis Moderate; Monocytes # (A) 0.1 k/uL (0-1.0); Monocytes % (A) 2 %; Neutrophils # (A) 7.1 k/uL (1.3-7.7); Neutrophils % (A) 93 %; Platelet Count 438 k/uL (150-450); Poikilocytosis Slight; RBC 2.81 m/uL (3.80-5.40); RDW 14.8 % (11.5-15.5); WBC 7.6 k/uL (3.8-10.6)
[2024-01-28 15:58] LABS: HGB 5.8 gm/dL (11.4-16.0)
[2024-01-28 15:59] LABS: HCT 19.9 % (34.0-46.0)
[2024-01-28 16:00] LABS: ALT 12 U/L (4-34); AST 24 U/L (14-36); African American GFR (CKD) 72 (>60 ml/min/1.73 sqM); Albumin 4.2 g/dL (3.5-5.0); Alkaline Phosphatase 98 U/L (38-126); Anion Gap 6 mmol/L; Blood Urea Nitrogen 21 mg/dL (7-17); Calcium 9.6 mg/dL (8.4-10.2); Carbon Dioxide 22 mmol/L (22-30); Chloride 103 mmol/L (98-107); Glucose 139 mg/dL (74-99); Non-African American GFR(CKD) 63 (>60 ml/min/1.73 sqM); Potassium 5.4 mmol/L (3.5-5.1); Sodium 131 mmol/L (137-145); Total Bilirubin 0.3 mg/dL (0.2-1.3)
[2024-01-28] MEDS: PANTOPRAZOLE 40 MG/10 ML VIAL IVP STA (16:48)
[2024-01-28 17:03] LABS: Prothrombin Time 10.6 sec (10.0-12.5)
[2024-01-28 17:12] LABS: Partial Thromboplastin Time 21.6 sec (22.0-30.0)
[2024-01-29 02:28] VITALS: BP 173/75; PULSE 76; RESP 18; TEMP 98.1
== END 2024-01-28 20:41 ==
LOC: EC 14:34
DX: K92.2 Gastrointestinal hemorrhage, unspecified (principal); Z91.040 Latex allergy status; Z91.048 Other nonmedicinal substance allergy status; Z86.16 Personal history of COVID-19
CPT/HCPCS: 36415; 86900; 86901; 80053; 85025; 85610; 85730; 86850; 86920; 82272; 99291; 96374; 36430; P9016; J2470

== ENCOUNTER 2024-09-14 09:57 | Emergency (ER) | payer MEDICARE ==
[2024-09-14 10:12] VITALS: TEMP 97.8
[2024-09-14 10:15] LABS: ABG PH 7.20 (7.35-7.45); ABG PO2 229 mmHg (83-108); ABG TCO2 7 mmol/L (19-24); Allen Test Performed? Yes
--- NOTE | 2024-09-14 10:15 | ED ---
General Adult HPI - General Chief complaint: Altered Mental Status Stated complaint: Dehydration Time Seen by Provider: 09/14/24 09:57 Source: patient, EMS, RN notes reviewed, old records reviewed Mode of arrival: EMS - History of Present Illness Initial comments: This is a 79-year-old female with a past medical history significant for a colostomy and a recently placed urostomy bag. Patient had bladder cancer and had a bladder removed on 20 August. Patient comes in today because of severe difficulty breathing. Patient has been anemic in the past. Patient also complains of generalized abdominal pain. Patient denies any chest pain or palpitations. Patient does not at this point want CPR or intubation or blood work. at this time has been informed of her wishes - Related Data Home Medications Medication Instructions Recorded Confirmed Metoprolol Tartrate [Lopressor] 25 mg PO BID 08/15/20 04/22/24 Glucosamine/Chondr Mack A Sod [Osteo 1 tab PO DAILY 11/30/22 04/22/24 Bi-Flex Caplet] Moxifloxacin HCl [Moxifloxacin 1 drop BOTH EYES QID 11/30/22 04/22/24 0.5%] Pravastatin Sodium [Pravachol] 40 mg PO DAILY 11/30/22 04/22/24 Previous Rx's Medication Instructions Recorded amLODIPine [Norvasc] 5 mg PO BID #60 tab 12/09/22 Allergies Allergy/AdvReac Type Severity Reaction Status Date / Time adhesive tape Allergy Rash/Hives Verified 04/22/24 12:43 latex Allergy Rash/Hives Verified 04/22/24 12:43 wool Allergy Rash/Hives Verified 04/22/24 12:43 Review of Systems ROS Statement: Those systems with pertinent positive or pertinent negative responses have been documented in the HPI. ROS Other: All systems not noted in ROS Statement are negative. 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 iron deficiency anemia. History of Any Multi-Drug Resistant Organisms: None Reported Past Surgical History: Adenoidectomy, Hysterectomy, Joint Replacement, Tonsillectomy Additional Past Surgical History / Comment(s): Left hip surgery Past Anesthesia/Blood Transfusion Reactions: No Reported Reaction Past Psychological History: No Psychological Hx Reported Smoking Status: Never smoker Past Alcohol Use History: None Reported Past Drug Use History: None Reported - Past Family History Mother Family Medical History: Cancer Sister(s) Family Medical History: Cancer General Exam - General Exam Comments Initial Comments: GENERAL: Patient is well-developed and well-nourished. Patient is nontoxic and well- hydrated and is in mild distress. ENT: Neck is soft and supple. No significant lymphadenopathy is noted. Oropharynx is clear. Moist mucous membranes. Neck has full range of motion without naty citing any pain. EYES: The sclera were anicteric and conjunctiva were pink and moist. Extraocular movements were intact and pupils were equal round and reactive to light. Eyelids were unremarkable. PULMONARY: Unlabored respirations. Good breath sounds bilaterally. No audible rales rhonchi or wheezing was noted. CARDIOVASCULAR: There is a regular rate and rhythm without any murmurs gallops or rubs. ABDOMEN: Patient has tenderness that is diffuse SKIN: Skin is clear with no lesions or rashes and otherwise unremarkable. NEUROLOGIC: Patient is alert and oriented x3. Cranial nerves II through XII are grossly intact. Motor and sensory are also intact. Normal speech, volume and content. Symmetrical smile. MUSCULOSKELETAL: Normal extremities with adequate strength and full range of motion. LYMPHATICS: No significant lymphadenopathy is noted PSYCHIATRIC: Normal psychiatric evaluation. Course Vital Signs 09/14/24 09/14/24 09/14/24 09:59 10:16 10:27 Temperature 97.8 F Pulse Rate 68 67 60 Respiratory 30 H 28 H 28 H Rate Blood Pressure 110/53 97/61 83/60 O2 Sat by Pulse 83 L Oximetry 09/14/24 10:46 Temperature Pulse Rate 41 L Respiratory 22 Rate Blood Pressure 61/25 O2 Sat by Pulse Oximetry Medical Decision Making - Medical Decision Making EKG is interpreted by myself EKG shows a junctional rhythm at 72 bpm MD interval is 114 QRS is 80 QT interval 363 QTc is 387 EKG shows a PVC and it is of poor quality secondary to motion Was pt. sent in by a medical professional or institution (AKHIL Hurd, ENVIRONMENTAL PLANNING ENGINEER, urgent care, hospital, or intermediate...) When possible be specific @ -No Did you speak to anyone other than the patient for history (EMS, parent, family, police, friend...)? What history was obtained from this source @ -No Did you review nursing and triage notes (agree or disagree)? Why? @ -I reviewed and agree with nursing and triage notes Were old charts reviewed (outside hosp., previous admission, EMS record, old EKG, old radiological studies, urgent care reports/EKG's, intermediate records)? Report findings @ -No old charts were reviewed Differential Diagnosis? @ -Differential Dyspnea: Coronary syndrome, arrhythmia, tamponade, asthma, COPD, pulmonary embolism, pneumonia, pneumothorax, pulmonary effusion, anaphylaxis, diabetic ketoacidosis, flailed chest, pulmonary contusion, diaphragmatic rupture, anemia, neuromuscular, this is not meant to be an all-inclusive list. EKG interpreted by me (3pts min.). @ -As above X-rays interpreted by me (1pt min.). @ -Chest x-ray shows no acute abnormality CT interpreted by me (1pt min.). @ -None done U/S interpreted by me (1pt. min.). @ -None done What testing was considered but not performed or refused? (CT, X-rays, U/S, labs)? Why? @ -None What meds were considered but not given or refused? Why? @ -None Did you discuss the management of the patient with other professionals (professionals i.e. , PA, ENVIRONMENTAL PLANNING ENGINEER, lab, RT, psych nurse, rn social work, sausage grinder, teacher, corporate ethics officer, high risk case manager)? Give summary @ -I spoke with Dr. Mike and the medical technologist microbiology Was smoking cessation discussed for >3mins.? @ -No Was critical care preformed (if so, how long)? @ -No Were there social determinants of health that impacted care today? How? (Homelessness, low income, unemployed, alcoholism, drug addiction, transportation, low edu. Level, literacy, decrease access to med. care, [facility], rehab)? @ -No Was there de-escalation of care discussed even if they declined (Discuss DNR or withdrawal of care, Hospice)? DNR status @ -No What co-morbidities impacted this encounter? (DM, HTN, Smoking, COPD, CAD, Cancer, CVA, ARF, Chemo, Hep., AIDS, mental health diagnosis, sleep apnea, morbid obesity)? @ -None Was patient admitted / discharged? Hospital course, mention meds given and route, prescriptions, significant lab abnormalities, going to OR and other per tinent info. @ -Patient did not want any intervention she did not want any hemoglobin she did not want intubation or CPR. Family was in agreement with this and patient's heart rate eventually became bradycardic and eventually slowed down to asystole at which point in time she was pronounced at 11:09 AM. Patient lactic acid is elevated secondary to anemia. Undiagnosed new problem with uncertain prognosis? @ -No Drug Therapy requiring intensive monitoring for toxicity (Heparin, Nitro, I nsulin, Cardizem)? @ -No Were any procedures done? @ -No Diagnosis/symptom? @ -Anemia Acute, or Chronic, or Acute on Chronic? @ -Acute Uncomplicated (without systemic symptoms) or Complicated (systemic symptoms)? @ -Complicated Side effects of treatment? @ -No Exacerbation, Progression, or Severe Exacerbation? @ -No Poses a threat to life or bodily function? How? (Chest pain, [place], [place], pneumonia, PE, COPD, DKA, ARF, appy, cholecystitis, CVA, Diverticulitis, Homicidal, Suicidal, threat to staff... and all critical care pts) @ -Yes this could cause her Diagnosis/symptom? @ -Respiratory failure Acute, or Chronic, or Acute on Chronic? @ -Acute Uncomplicated (without systemic symptoms) or Complicated (systemic symptoms)? @ -Complicated Side effects of treatment? @ -None Exacerbation, Progression, or Severe Exacerbation] @ -No Poses a threat to life or bodily function? @ -Yes this did indeed cause her - Lab Data Result diagrams: 09/14/24 10:14 Lab Results 09/14/24 09/14/24 09/14/24 Range/Units 10:11 10:14 10:14 PT 11.6 (10.0-12.5) sec INR 1.1 (<1.2) APTT 21.2 L (22.0-30.0) sec D-Dimer 4.35 H (<0.60) mg/L FEU Sample Site rbrac ABG pH 7.20 L (7.35-7.45) ABG pCO2 16 L* (35-45) mmHg ABG pO2 229 H (83-108) mmHg ABG HCO3 6 L* (21-25) mmol/L ABG Total CO2 7 L (19-24) mmol/L ABG O2 Saturation >100.0 H (94-97) % ABG Base Excess -20.2 mmol/L Donny Test Yes Hemoglobin 2.5 L* (11.4-16.0) gm/dL FiO2 100 % Sodium 135 L (137-145) mmol/L Potassium 6.0 H (3.5-5.1) mmol/L Chloride 109 H (98-107) mmol/L Carbon Dioxide 5 L* (22-30) mmol/L Anion Gap 21 mmol/L BUN 16 (7-17) mg/dL Creatinine 0.88 (0.52-1.04) mg/dL Est GFR (CKD-EPI)AfAm 73 (>60 ml/min/1.73 sqM) Est GFR (CKD-EPI)NonAf 64 (>60 ml/min/1.73 sqM) Glucose 310 H (74-99) mg/dL Lactic Ac Sepsis Rflx Plasma Lactic Acid Jeff (0.7-2.0) mmol/L Calcium 8.5 (8.4-10.2) mg/dL Magnesium 2.7 H (1.6-2.3) mg/dL Total Bilirubin 0.4 (0.2-1.3) mg/dL AST 22 (14-36) U/L ALT 11 (4-34) U/L Alkaline Phosphatase 83 (38-126) U/L Troponin I (0.000-0.034) ng/mL Total Protein 4.4 L (6.3-8.2) g/dL Albumin 2.2 L (3.5-5.0) g/dL Stool Occult Blood (Negative) Blood Type Blood Type Recheck Bld Type Recheck Status Antibody Screen Spec Expiration Date 09/14/24 09/14/24 09/14/24 Range/Units 10:14 10:14 10:14 PT (10.0-12.5) sec INR (<1.2) APTT (22.0-30.0) sec D-Dimer (<0.60) mg/L FEU Sample Site ABG pH (7.35-7.45) ABG pCO2 (35-45) mmHg ABG pO2 (83-108) mmHg ABG HCO3 (21-25) mmol/L ABG Total CO2 (19-24) mmol/L ABG O2 Saturation (94-97) % ABG Base Excess mmol/L Donny Test Hemoglobin (11.4-16.0) gm/dL FiO2 % Sodium (137-145) mmol/L Potassium (3.5-5.1) mmol/L Chloride (98-107) mmol/L Carbon Dioxide (22-30) mmol/L Anion Gap mmol/L BUN (7-17) mg/dL Creatinine (0.52-1.04) mg/dL Est GFR (CKD-EPI)AfAm (>60 ml/min/1.73 sqM) Est GFR (CKD-EPI)NonAf (>60 ml/min/1.73 sqM) Glucose (74-99) mg/dL Lactic Ac Sepsis Rflx Plasma Lactic Acid Jeff 14.6 H* (0.7-2.0) mmol/L Calcium (8.4-10.2) mg/dL Magnesium (1.6-2.3) mg/dL Total Bilirubin (0.2-1.3) mg/dL AST (14-36) U/L ALT (4-34) U/L Alkaline Phosphatase (38-126) U/L Troponin I <0.012 (0.000-0.034) ng/mL Total Protein (6.3-8.2) g/dL Albumin (3.5-5.0) g/dL Stool Occult Blood (Negative) Blood Type O Positive Blood Type Recheck O Pos Bld Type Recheck Status No Antibody Screen NEGATIVE Spec Expiration Date 09/17/2024 - 231309/14/24 09/14/24 Range/Units 10:21 11:19 PT (10.0-12.5) sec INR (<1.2) APTT (22.0-30.0) sec D-Dimer (<0.60) mg/L FEU Sample Site ABG pH (7.35-7.45) ABG pCO2 (35-45) mmHg ABG pO2 (83-108) mmHg ABG HCO3 (21-25) mmol/L ABG Total CO2 (19-24) mmol/L ABG O2 Saturation (94-97) % ABG Base Excess mmol/L Donny Test Hemoglobin (11.4-16.0) gm/dL FiO2 % Sodium (137-145) mmol/L Potassium (3.5-5.1) mmol/L Chloride (98-107) mmol/L Carbon Dioxide (22-30) mmol/L Anion Gap mmol/L BUN (7-17) mg/dL Creatinine (0.52-1.04) mg/dL Est GFR (CKD-EPI)AfAm (>60 ml/min/1.73 sqM) Est GFR (CKD-EPI)NonAf (>60 ml/min/1.73 sqM) Glucose (74-99) mg/dL Lactic Ac Sepsis Rflx Y Plasma Lactic Acid Jeff (0.7-2.0) mmol/L Calcium (8.4-10.2) mg/dL Magnesium (1.6-2.3) mg/dL Total Bilirubin (0.2-1.3) mg/dL AST (14-36) U/L ALT (4-34) U/L Alkaline Phosphatase (38-126) U/L Troponin I (0.000-0.034) ng/mL Total Protein (6.3-8.2) g/dL Albumin (3.5-5.0) g/dL Stool Occult Blood Positive H (Negative) Blood Type Blood Type Recheck Bld Type Recheck Status Antibody Screen Spec Expiration Date Disposition Clinical Impression: Anemia, Respiratory failure Disposition: Referrals: Atif Mike MD [Primary Care Provider] - 1-2 days Time of Disposition: 11:13 Preliminary Cause of : Respiratory failure, no code
[2024-09-14 10:25] LABS: ABG HCO3 6 mmol/L (21-25); ABG PCO2 16 mmHg (35-45)
[2024-09-14 10:45] LABS: ALT 11 U/L (4-34); AST 22 U/L (14-36); African American GFR (CKD) 73 (>60 ml/min/1.73 sqM); Albumin 2.2 g/dL (3.5-5.0); Alkaline Phosphatase 83 U/L (38-126); Anion Gap 21 mmol/L; Blood Urea Nitrogen 16 mg/dL (7-17); Calcium 8.5 mg/dL (8.4-10.2); Chloride 109 mmol/L (98-107); Glucose 310 mg/dL (74-99); Magnesium 2.7 mg/dL (1.6-2.3); Non-African American GFR(CKD) 64 (>60 ml/min/1.73 sqM); Potassium 6.0 mmol/L (3.5-5.1); Sodium 135 mmol/L (137-145); Total Protein 4.4 g/dL (6.3-8.2)
--- NOTE | 2024-09-14 10:55 | XR ---
EXAMINATION TYPE: XR chest 1V DATE OF EXAM: 09/14/2024 10:48 AM COMPARISON: 12/07/2022 CLINICAL INDICATION: Female, 79 years old with history of difficulty breathing, TECHNIQUE: XR chest 1V views of the chest are obtained. FINDINGS: Demonstrated are scattered senescent parenchymal change. Diminished lung volumes with increased density at the lung bases may reflect atelectasis. Overall sta ble chest. The heart is stable. Hilar and mediastinal structures are within normal limits. Degenerative changes are seen of the dorsal spine. IMPRESSION: 1. Diminished lung volumes with increased density at the lung bases may reflect atelectasis. Overall stable chest. [facility], , 09/14/2024 10:52 AM
[2024-09-14 11:16] LABS: INR 1.1 (<1.2); Partial Thromboplastin Time 21.2 sec (22.0-30.0); Prothrombin Time 11.6 sec (10.0-12.5)
[2024-09-14 11:18] LABS: Carbon Dioxide 5 mmol/L (22-30)
[2024-09-14 16:49] VITALS: BP 34/20; PULSE 20; RESP 12
== END 2024-09-14 15:22 | disposition expired ==
LOC: EC 09:57
DX: D64.9 Anemia, unspecified (principal); J96.90 Respiratory failure, unspecified, unspecified whether with hypoxia or hypercapnia; Z91.040 Latex allergy status; Z91.048 Other nonmedicinal substance allergy status; Z88.8 Allergy status to other drugs, medicaments and biological substances
CPT/HCPCS: 36415; 36600; 71045; 80053; 82272; 82805; 83605; 83735; 84484; 85379; 85610; 85730; 86850; 86900; 86901; 93005; 99285